=== PATIENT | female | born 1975 | race Caucasian/White ===

== ENCOUNTER 2016-09-05 21:35 | Emergency (ER) | payer OTHER ==
[~2016-09-05] VITALS: Ht 162.6 cm; Wt 139.6 kg
[~2016-09-05 21:35] MED LIST: IBUP-1050 PO
[2016-09-05 21:37] VITALS: TEMP 36.8; Ht 162.6 cm; Wt 139.6 kg
[2016-09-05] MEDS ORDERED: HYDROCODONE/HOMATROPINE SYRUP 5MG/1.5MG 5ML UDP PO STA (21:52)
[2016-09-05] MEDS ORDERED: IBUPROFEN 600 MG TAB PO STA (21:52)
[2016-09-05] MEDS ORDERED: ACET-1256 PO (22:04)
--- NOTE | 2016-09-05 22:04 | EMERGENCY ROOM VISIT NOTE ---
History Report prepared by Randy: Silvia Ogden Under the Supervision of: Dr. Jonathan Lamb M.D. First contact with patient: 21:45 Chief Complaint: RIB PAIN Stated Complaint: RT SIDE PAIN History of Present Illness The patient is a 41 year old female who presents to the Emergency Room with complaints of worsening right sided rib pain for the past couple of weeks. She has had a cough and cold symptoms since before . She has had right sided rib pain since then that has been persistent. She describes it as an ache and states that it is worse at night when she is trying to rest. Her pain radiates into her back. She rates her pain as an 8/10 in severity. Taking a deep breath exacerbates her pain. She states that "it feels like the head of a baby is lodged under my rib." She has been taking Tylenol for pain. Source of History: patient Onset: a couple of weeks ago Position: other (right sided ribs) Symptom Intensity: 8/10 Quality: ache Review of Systems See HPI for pertinent positives & negatives. A total of 10 systems reviewed and were otherwise negative. Past Medical & Surgical Medical Problems: (1) Cellulitis (2) Herpetic chayito (3) Herpetic chayito (4) History of blood clots (5) Pain in joint involving right ankle and foot Family History No pertinent history stated. Social History Smoking Status: Never Smoker Alcohol Use: occasionally Drug Use: none Marital Status: Housing Status: lives with family Occupation Status: employed Current/Historical Medications Scheduled Acetaminophen (Tylenol), 1,000 MG PO PRN UD Scheduled PRN Hydrocodone W/ Homatropine (Hycodan 5/1.5MG 5 Ml), 5 ML PO HS PRN for Cough Ibuprofen (Advil), 400 MG PO Q4H PRN for Pain Allergies Coded Allergies: No Known Allergies (Verified , 09/05/16) Physical Exam Vital Signs Date Time Temp Pulse Resp B/P Pulse Ox O2 Delivery O2 Flow Rate FiO2 09/05/16 23:30 93 20 166/104 94 09/05/16 21:37 36.8 109 24 208/101 96 Room Air Physical Exam GENERAL: Patient is a healthy-appearing well-nourished 41 year old female. HEAD: Normocephalic atraumatic EYES: Ocular movements intact pupils equal and react to light OROPHARYNX mucous membranes are moist no exudates present no erythema or edema present NECK: Supple no nuchal rigidity CHEST: Good equal expansion LUNGS: Clear and equal to auscultation CARDIAC: Normal S1 and S2 ABDOMEN: Soft nontender no guarding BACK: No CVA tenderness EXTREMITIES: No pain upon palpation normal muscle strength in all groups no clubbing cyanosis or edema MUSCULOSKELETAL: Point tender to the 9th and 10th ribs, radiates around to the back, gets worse when she moves her arm. NEURO: Patient is following commands is answering questions appropriately. Alert and oriented x3 Cranial Nerves 2-12 grossly intact Medical Decision & Procedures ER Provider Diagnostic Interpretation: Radiology results as stated below per my review and radiologist interpretation: RIGHT RIBS UNILATERAL WITH PA CHEST CLINICAL HISTORY: Right rib pain. COMPARISON STUDY: No previous studies for comparison. FINDINGS: The erect chest reveals borderline cardiac enlargement. There is no pneumothorax. There is no focal pulmonary consolidation. No right-sided rib fractures are visualized. IMPRESSION: No evidence of pneumothorax. No right-sided rib fractures are visualized. Electronically signed by: Herrera Whitney M.D. 09/05/2016 10:40 PM Dictated Date/Time: 09/05/2016 10:39 PM Medications Administered Medications (Trade) Dose Ordered Sig/Everett Route Start Time Stop Time Status Last Admin Dose Admin Ibuprofen (Motrin Tab) 600 mg NOW STAT PO 09/05/16 21:52 09/05/16 21:54 DC 09/05/16 22:04 600 MG Hydrocodone Bit/ Homatropine Methylb (Hycodan Syrup) 5 ml NOW STAT PO 09/05/16 21:52 09/05/16 21:54 DC 09/05/16 22:04 5 ML Hydrocodone Bit/ Homatropine Methylb (Hycodan Elix Homepack 5/1.5MG/ 5ML) 1 homepack UD ONCE PO 09/05/16 23:00 09/05/16 23:01 DC 09/05/16 23:00 1 HOMEPACK ED Course 5: Past medical records reviewed. The patient was evaluated in room B8. A complete history and physical examination was performed. 2151: Hycodan 5 ml PO, Motrin tab 600 mg PO 2251: I reassessed the patient at this time. She is feeling better and resting comfortably. I discussed the results and treatment plan with the patient. I answered all pertaining questions that she had. She expressed understanding and verbalized agreement. The patient will be discharged home. 2300: Amilcarcodan Elix 1 homepack PO Medical Decision Differential diagnoses includes rib fracture, rib dislocation, costochondritis. This is a 41-year-old female who presents emergency department complaining of right-sided chest wall. The patient is point tender on examination and the pain goes all the way around the back along the rib. The pain has been present since patient has been coughing for the past week. She has not taken anything for the pain. For this reason the patient was given ibuprofen as well as Hycodan for cough. The patient does not have any evidence of pneumonia on chest x-ray. She also does not have any evidence of wheezing. I believe the patient can be safely discharged home. I recommended the patient use an incentive spirometer as well as ibuprofen and Hycodan for the pain and cough. Patient was in agreement with the treatment plan. Impression Primary Impression: Costochondritis Scribe Attestation The scribe's documentation has been prepared under my direction and personally reviewed by me in its entirety. I confirm that the note above accurately reflects all work, treatment, procedures, and medical decision making performed by me. Departure Information Dispostion Home / Self-Care Prescriptions Hydrocodone W/ Homatropine (HYCODAN 5/1.5MG 5 ML) 1 Syp Syp 5 ML PO HS Y for Cough, #120 ML Prov: Jonathan Lamb MD 09/05/16 Referrals No Doctor, Assigned (PCP) Forms HOME CARE DOCUMENTATION FORM, IMPORTANT VISIT INFORMATION, WORK / SCHOOL INSTRUCTIONS Patient Instructions A Signature Page, ED Chest Pain Costochondritis, [facility] Additional Instructions You received narcotic or benzodiazepene medication while in the emergency room today. Do not drive, operate heavy machinery, or drink alcohol under the influence of this medication. Take 600 mg Ibuprofen every 6 hours Take Hycodan for breakthrough pain You have been examined and treated today on an emergency basis only. This is not a substitute for, or an effort to provide, complete comprehensive medical care. It is impossible to recognize and treat all injuries or illnesses in a single emergency department visit. It is therefore important that you follow up closely with your PCP. Call as soon as possible for an appointment. Thank you for your time and consideration. I look forward to speaking with you again soon. Please don't hesitate to call us if you have any questions.
--- NOTE | 2016-09-05 22:42 | DIAGNOSTIC IMAGING REPORT ---
RIGHT RIBS UNILATERAL WITH PA CHEST CLINICAL HISTORY: Right rib pain. COMPARISON STUDY: No previous studies for comparison. FINDINGS: The erect chest reveals borderline cardiac enlargement. There is no pneumothorax. There is no focal pulmonary consolidation. No right-sided rib fractures are visualized. IMPRESSION: No evidence of pneumothorax. No right-sided rib fractures are visualized. Electronically signed by: Herrera Whitney M.D. 09/05/2016 10:40 PM Dictated Date/Time: 09/05/2016 10:39 PM
[2016-09-05] MEDS ORDERED: HYDR5SYP11 PO (22:52)
[2016-09-05] MEDS ORDERED: HYCODAN 60ML BOTTLE HOMEPACK PO ONE (23:00)
[2016-09-05 23:30] VITALS: BP 166/104; PULSE 93; O2SAT 94
== END 2016-09-05 23:41 | disposition home or self-care (01) ==
LOC: C.EDB 21:36
DX: M94.0 Chondrocostal junction syndrome [Tietze] (principal); R05 Cough

== ENCOUNTER 2017-03-21 22:52 | Inpatient (IN) | payer OTHER ==
[~2017-03-21] VITALS: Ht 167.6 cm; Wt 148.2 kg
[~2017-03-21 22:52] MED LIST changes: +ACET-1256 PO
[2017-03-21] MEDS ORDERED: ONDANSETRON INJ 2 MG/ML 2 ML VIAL IV STA (23:09)
[2017-03-21] MEDS ORDERED: MoRPHine SULFATE 4 MG/ML 1 ML CARP\\VIAL IV STA (23:09)
[2017-03-21] MEDS ORDERED: OPTIRAY 320 IV PRN (23:15)
[2017-03-21 23:49] LABS: BASO % 0.1 %; BASO ABS # 0.02 K/uL (0-0.2); COMPLETE YES; EOS % 0.8 %; HEMATOCRIT 42.3 % (37-47); IG% 0.5 %; LYMPH % 11.9 %; LYMPH ABS # 1.72 K/uL (1.2-3.4); MEAN CELL VOLUME 87.6 fL (80-100); MEAN CORPUSCULAR HEMOGLOBIN 29.2 pg (25-34); MEAN CORPUSCULAR HGB CONC 33.3 g/dl (32-36); MEAN PLATELET VOLUME 10.7 fL (7.4-10.4); MONO % 3.8 %; NEUT % 82.9 %; PLATELET COUNT 221 K/uL (130-400); RED BLOOD COUNT 4.83 M/uL (4.2-5.4); WHITE BLOOD COUNT 14.49 K/uL (4.8-10.8)
[2017-03-22] VITALS (9 sets, daily range): BP systolic 97–144; BP diastolic 57–85; PULSE 96–112; TEMP 36.5–38.8; O2SAT 87–96; BMI 52.6
[2017-03-22 00:17] LABS: ALB/GLOB RATIO 0.7 (0.9-2); ALKALINE PHOSPHATASE 83 U/L (45-117); ALT/SGPT 42 U/L (12-78); BLOOD UREA NITROGEN 8 mg/dl (7-18); BUN/CREATININE RATIO 11.1 (10-20); CALCIUM 8.5 mg/dl (8.5-10.1); CARBON DIOXIDE 27 mmol/L (21-32); CHLORIDE 106 mmol/L (98-107); CREATININE 0.76 mg/dl (0.60-1.20); GLUCOSE 198 mg/dl (70-99); SODIUM 138 mmol/L (136-145)
[2017-03-22 00:31] LABS: POTASSIUM 3.6 mmol/L (3.5-5.1)
[2017-03-22 01:28] LABS: URINE APPEARANCE TURBID (CLEAR); URINE COLOR ORANGE; URINE EPITHELIAL CELL AUTO >30 /lpf (0-5); URINE NITRITE POS (NEG); UROBILINOGEN NEG (NEG)
[2017-03-22 01:29] LABS: PREG INTERNAL NEGATIVE QC NEG CLEAR BACKGROUND; PREG INTERNAL POSITIVE QC POS CONTROL LINE
[2017-03-22] MEDS ORDERED: PIPERACILLIN/TAZOBACTAM 4.5 GM/100ML D5W IV STA (01:38)
[2017-03-22] MEDS ORDERED: POTASSIUM CHLORIDE 10 MEQ TABCR PO STA (01:41)
--- NOTE | 2017-03-22 01:41 | EMERGENCY ROOM VISIT NOTE ---
History Report prepared by Randy: Tesha Balderas Under the Supervision of: Dr. Napoleon De La Vega M.D. First contact with patient: 23:00 Chief Complaint: FLANK PAIN Stated Complaint: RIGHT SIDE PAIN History of Present Illness The patient is a 41 year old female who presents to the Emergency Room with complaints of constant right sided abdominal pain beginning this afternoon. The patient states that when she got home from work today and noticed that she had some redness and pain to her right lower abdomen. She reports that it is hard, hot and very painful to the touch. She notes that she has some nausea. The patient denies any fever, vomiting, urinary symptoms, hematuria, and a history of kidney stones. She reports that she has her period right now. Source of History: patient Onset: this afternoon Position: abdomen Symptom Intensity: moderate Quality: other (red and hot) Timing: constant Associated Symptoms: + nausea, No fevers, No vomiting, No urinary symptoms Review of Systems See HPI for pertinent positives & negatives. A total of 10 systems reviewed and were otherwise negative. Past Medical & Surgical Medical Problems: (1) Cellulitis (2) Herpetic chayito (3) Herpetic chayito (4) History of blood clots (5) Pain in joint involving right ankle and foot Family History No pertinent family history stated. Social History Smoking Status: Never Smoker Alcohol Use: occasionally Drug Use: none Marital Status: Housing Status: lives with family Occupation Status: employed Current/Historical Medications Scheduled Acetaminophen (Tylenol), 1,000 MG PO PRN UD Scheduled PRN Ibuprofen (Advil), 400 MG PO Q4H PRN for Pain Allergies Coded Allergies: No Known Allergies (Verified , 09/05/16) Physical Exam Vital Signs Date Time Temp Pulse Resp B/P (MAP) Pulse Ox O2 Delivery O2 Flow Rate FiO2 03/22/17 01:00 36.9 114 20 162/81 92 Room Air 03/21/17 22:54 36.7 126 18 151/89 93 Room Air Physical Exam Constitutional: Vital signs reviewed. Eyes: Pupils are equal round reactive to light. Conjunctiva are noninjected. ENT: Pharynx is clear without erythema or exudate. Mucous membranes are moist. Neck supple without meningeal signs. Respiratory: Clear to auscultation bilaterally. Breath sounds are equal bilaterally. Cardiovascular: Tachycardic. No rubs or gallops. GI: Bowel sounds are present. A large abscess to the RLQ with tenderness and induration. Small area of fluctuance. No extension into the perineum or genitalia. Musculoskeletal: No peripheral edema. No lower extremity tenderness. Integumentary: No cyanosis. Neurological: The patient is awake and alert. No focal deficits. Psychiatric: Normal affect. Medical Decision & Procedures ER Provider Diagnostic Interpretation: Radiology results as stated below per my review and the radiologist's interpretation: Chest X-Ray: No acute cardiopulmonary process. CT of the abdomen and pelvis shows no abscess or phlegmon in the right lower quadrant pannus/subcutaneous tissues. There is soft tissue gas identified either from penetrating trauma or gas producing infection. Adjacent stranding/ subcutaneous edema. No bowel obstruction. No appendicitis or other inflammatory changes of bowel. Pancreas and gallbladder are grossly unremarkable. No renal calculi. No hydronephrosis. No free air or free fluid. No other acute disease. Laboratory Results 03/21/17 23:30 Red Blood Count 4.83, Mean Corpuscular Volume 87.6, Mean Corpuscular Hemoglobin 29.2, Mean Corpuscular Hemoglobin Concent 33.3, Mean Platelet Volume 10.7, Neutrophils (%) (Auto) 82.9, Lymphocytes (%) (Auto) 11.9, Monocytes (%) (Auto) 3.8, Eosinophils (%) (Auto) 0.8, Basophils (%) (Auto) 0.1, Neutrophils # (Auto) 12.02, Lymphocytes # (Auto) 1.72, Monocytes # (Auto) 0.55, Eosinophils # (Auto) 0.11, Basophils # (Auto) 0.02 03/21/17 23:30 03/22/17 00:02 Test 03/21/17 23:30 03/21/17 23:40 03/22/17 00:02 03/22/17 00:12 White Blood Count 14.49 K/uL (4.8-10.8) Red Blood Count 4.83 M/uL (4.2-5.4) Hemoglobin 14.1 g/dL (12.0-16.0) Hematocrit 42.3 % (37-47) Mean Corpuscular Volume 87.6 fL (80-100) Mean Corpuscular Hemoglobin 29.2 pg (25-34) Mean Corpuscular Hemoglobin Concent 33.3 g/dl (32-36) Platelet Count 221 K/uL (130-400) Mean Platelet Volume 10.7 fL (7.4-10.4) Neutrophils (%) (Auto) 82.9 % Lymphocytes (%) (Auto) 11.9 % Monocytes (%) (Auto) 3.8 % Eosinophils (%) (Auto) 0.8 % Basophils (%) (Auto) 0.1 % Neutrophils # (Auto) 12.02 K/uL (1.4-6.5) Lymphocytes # (Auto) 1.72 K/uL (1.2-3.4) Monocytes # (Auto) 0.55 K/uL (0.11-0.59) Eosinophils # (Auto) 0.11 K/uL (0-0.5) Basophils # (Auto) 0.02 K/uL (0-0.2) RDW Standard Deviation 46.5 fL (36.4-46.3) RDW Coefficient of Variation 14.4 % (11.5-14.5) Immature Granulocyte % (Auto) 0.5 % Immature Granulocyte # (Auto) 0.07 K/uL (0.00-0.02) Anion Gap 5.0 mmol/L (3-11) Est Creatinine Clear Calc Drug Dose 145.5 ml/min Estimated GFR () 112.9 Estimated GFR (Non- 97.4 BUN/Creatinine Ratio 11.1 (10-20) Calcium Level 8.5 mg/dl (8.5-10.1) Total Bilirubin 1.3 mg/dl (0.2-1) Alanine Aminotransferase (ALT/SGPT) 42 U/L (12-78) Alkaline Phosphatase 83 U/L (45-117) Total Protein 6.9 gm/dl (6.4-8.2) Albumin 2.8 gm/dl (3.4-5.0) Globulin 4.1 gm/dl (2.5-4.0) Albumin/Globulin Ratio 0.7 (0.9-2) Bedside Lactic Acid Venous 1.32 mmol/L (0.90-1.70) Aspartate Amino Transf (AST/SGOT) 13 U/L (15-37) Urine Test NEG (NEG) Test 03/22/17 01:17 Prothrombin Time 11.4 SECONDS (9.0-12.0) Prothromb Time International Ratio 1.1 (0.9-1.1) Activated Partial Thromboplast Time 26.9 SECONDS (21.0-31.0) Partial Thromboplastin Ratio 1.0 Laboratory results as reviewed by me. Medications Administered Medications (Trade) Dose Ordered Sig/Everett Route Start Time Stop Time Status Last Admin Dose Admin Morphine Sulfate (MoRPHine SULFATE INJ) 4 mg NOW STAT IV 03/21/17 23:09 03/21/17 23:12 DC 03/22/17 00:22 4 MG Ondansetron HCl (Zofran Inj) 4 mg NOW STAT IV 03/21/17 23:09 03/21/17 23:12 DC 03/22/17 00:22 4 MG ED Course 2300: The patient was evaluated in room B10. A complete history and physical exam was performed. 2309: Zofran Inj 4mg IV, Morphine Sulfate 4mg IV. 0120: I discussed the test results with the patient. She is feeling better. I spoke with Dr. Parker of [facility]. We discussed the patient and her results. The patient will be further evaluated by Dr. Parker. Medical Decision This is a 41-year-old female presents with right-sided abdominal pain. Differential diagnosis includes cutaneous abscess, cellulitis, intra-abdominal abscess, panniculitis, sepsis. I did perform a limited focused review of portions of the patient's old chart on the electronic medical record. The patient has had no recent pertinent visits to this hospital. I did evaluate the patient as noted above. IV access was established. I did treat the patient with IV Zofran and morphine. I did order and review the patient's blood work as noted in the electronic medical record. Her white blood cell count is over 14,000. I did order a CT of the abdomen and pelvis. I did review the images myself. I did discuss the test results with the patient. She states she is feeling better. I did treat her with Zosyn IV. I did discuss case with the hospitalist and manager of case. The CT was read by the radiologist. I did review his report. I did discuss the case with Dr. Leigh of surgery who recommended IV antibiotics and admission to medicine. I did treat the patient with IV vancomycin as well. I did update the hospitalist regarding the surgeon's recommendation. Medication Reconcilliation Current Medication List: was personally reviewed by me Blood Pressure Screening Patient's blood pressure: Elevated blood pressure Blood pressure disposition: Referred to PCP Consults Consulting Physician: Dr. Keith Duncan Returned Call: 01:[address] Parker of [facility]. We discussed the patient and her results. The patient will be further evaluated by Dr. Parker. Additional Consults: Consulted Physician: Dr. Leigh - surgery Returned Call: 01:48 Additional Comments: Reviewed case and CT findings with surgeon. Recommended admit to medicine with IV antibiotics and he will follow closely. Impression Primary Impression: Right lower quadrant abdominal abscess Additional Impression: Cellulitis Scribe Attestation The scribe's documentation has been prepared under my direct and personally reviewed by me in its entirety. I confirm that the note above accurately reflects all work, treatment, procedures, and medical decision making performed by me. Departure Information Dispostion Being Evaluated By Hospitalist Referrals No Doctor, Assigned (PCP) Patient Instructions My [facility] Problem Qualifiers Additional Impression: Cellulitis Site of cellulitis: trunk Site of cellulitis of trunk: abdominal wall Qualified Codes: L03.311 - Cellulitis of abdominal wall
[2017-03-22 01:43] LABS: INR 1.1 (0.9-1.1); PROTHROMBIN TIME (PATIENT) 11.4 SECONDS (9.0-12.0)
[2017-03-22] MEDS ORDERED: VANCOMYCIN 1GM/270ML NSS IV STA (01:43)
[2017-03-22] MEDS ORDERED: NSS + 20MEQ KCL 1000ML 1,000 ML IV SCH (01:45)
[2017-03-22 01:51] LABS: MAGNESIUM 1.7 mg/dl (1.8-2.4)
[2017-03-22 01:52] LABS: MANUAL MICROSCOPIC REQUIRED? NO; REVIEW REQ? YES; URINE BILIRUBIN NEG (NEG)
[2017-03-22] MEDS ORDERED: MAGNESIUM SULFATE 1GM / D5W 1 GM in PREMIXED IN D5W 100 ML IV ONE (02:00)
[2017-03-22 02:08] LABS: THYROID STIMULATING HORMONE 0.951 uIu/ml (0.300-4.500)
[2017-03-22] MEDS ORDERED: POLYETHYLENE (MIRALAX) 17 GM PACK PO PRN (03:15)
[2017-03-22] MEDS ORDERED: VANCOMYCIN 1GM/270ML NSS ONE (03:53)
--- NOTE | 2017-03-22 03:56 | History and Physical ---
History & Physical Date & Time of Service: Mar 22, 2017 at 03:20 Chief Complaint: Right Side Pain Primary Care Physician: No Doctor, Assigned History of Present Illness Source: patient 41-year-old female with no significant past medical history presented to the ER with complaints of right-sided abdominal pain which started this afternoon. She stated that she had some pain in the right lower part of her abdominal wall which was associated with redness and was warm and tender to touch. She denies any history of trauma or insect bites. Denies any fevers or chills. Past Medical/Surgical History Medical Problems: (1) Cellulitis Status: Resolved (2) Herpetic chayito Status: Resolved (3) Herpetic chayito Status: Resolved (4) History of blood clots Status: Chronic (5) Pain in joint involving right ankle and foot Status: Resolved Social History Smoking Status: Never Smoker Drug Use: none Marital Status: Occupational Status: employed Multi-Drug Resistant Organisms History of MDRO: No Allergies Coded Allergies: No Known Allergies (Verified , 09/05/16) Home Medications Scheduled Acetaminophen (Tylenol), 1,000 MG PO PRN UD Scheduled PRN Ibuprofen (Advil), 400 MG PO Q4H PRN for Pain Review of Systems Constitutional: No fever, No chills Eyes: No worsening of vision ENT: No hearing loss Respiratory: No cough Cardiovascular: No chest pain Abdomen: + pain (RLQ), No nausea Musculoskeletal: No joint pain Genitourinary - Female: No dysuria, No urinary frequency, No urinary urgency Neurologic: No memory loss Psychiatric: No depression symptoms Endocrine: No fatigue Physical Exam Vital Signs Date Time Temp Pulse Resp B/P (MAP) Pulse Ox O2 Delivery O2 Flow Rate FiO2 03/22/17 02:25 113 20 153/93 91 Room Air 03/22/17 01:00 36.9 114 20 162/81 92 Room Air 03/21/17 22:54 36.7 126 18 151/89 93 Room Air General Appearance: WD/WN, no apparent distress, + obese Eyes: normal inspection Neck: supple Respiratory/Chest: lungs clear, normal breath sounds, no respiratory distress Cardiovascular: + tachycardia Extremities/Musculoskelatal: + pedal edema (RLE circumference >LLE) Neurologic/Psych: alert, normal mood/affect, oriented x 3 Skin: normal color Right lower abdominal wall tender, swollen, erythematous with areas of fluctuance Diagnostics Laboratory Results Results Past 24 Hours Test 03/21/17 23:30 03/21/17 23:40 03/22/17 00:02 03/22/17 00:12 Range/Units White Blood Count 14.49 4.8-10.8 K/uL Red Blood Count 4.83 4.2-5.4 M/uL Hemoglobin 14.1 12.0-16.0 g/dL Hematocrit 42.3 37-47 % Mean Corpuscular Volume 87.6 80-100 fL Mean Corpuscular Hemoglobin 29.2 25-34 pg Mean Corpuscular Hemoglobin Concent 33.3 32-36 g/dl Platelet Count 221 130-400 K/uL Mean Platelet Volume 10.7 7.4-10.4 fL Neutrophils (%) (Auto) 82.9 % Lymphocytes (%) (Auto) 11.9 % Monocytes (%) (Auto) 3.8 % Eosinophils (%) (Auto) 0.8 % Basophils (%) (Auto) 0.1 % Neutrophils # (Auto) 12.02 1.4-6.5 K/uL Lymphocytes # (Auto) 1.72 1.2-3.4 K/uL Monocytes # (Auto) 0.55 0.11-0.59 K/uL Eosinophils # (Auto) 0.11 0-0.5 K/uL Basophils # (Auto) 0.02 0-0.2 K/uL RDW Standard Deviation 46.5 36.4-46.3 fL RDW Coefficient of Variation 14.4 11.5-14.5 % Immature Granulocyte % (Auto) 0.5 % Immature Granulocyte # (Auto) 0.07 0.00-0.02 K/uL Sodium Level 138 136-145 mmol/L Potassium Level 3.6 3.5-5.1 mmol/L Chloride Level 106 98-107 mmol/L Carbon Dioxide Level 27 21-32 mmol/L Anion Gap 5.0 3-11 mmol/L Blood Urea Nitrogen 8 7-18 mg/dl Creatinine 0.76 0.60-1.20 mg/dl Est Creatinine Clear Calc Drug Dose 145.5 ml/min Estimated GFR () 112.9 Estimated GFR (Non- 97.4 BUN/Creatinine Ratio 11.1 10-20 Random Glucose 198 70-99 mg/dl Calcium Level 8.5 8.5-10.1 mg/dl Total Bilirubin 1.3 0.2-1 mg/dl Aspartate Amino Transf (AST/SGOT) 13 15-37 U/L Alanine Aminotransferase (ALT/SGPT) 42 12-78 U/L Alkaline Phosphatase 83 45-117 U/L Total Protein 6.9 6.4-8.2 gm/dl Albumin 2.8 3.4-5.0 gm/dl Globulin 4.1 2.5-4.0 gm/dl Albumin/Globulin Ratio 0.7 0.9-2 Bedside Lactic Acid Venous 1.32 0.90-1.70 mmol/L Magnesium Level 1.7 1.8-2.4 mg/dl Thyroid Stimulating Hormone (TSH) 0.951 0.300-4.500 uIu/ml Urine Color ORANGE Urine Appearance TURBID CLEAR Urine pH 6.0 4.5-7.5 Urine Specific [place] 1.020 1.000-1.030 Urine Protein 1+ NEG Urine Glucose (UA) NEG NEG Urine Ketones TRACE NEG Urine Occult Blood 3+ NEG Urine Nitrite POS NEG Urine Bilirubin NEG NEG Urine Urobilinogen NEG NEG Urine Leukocyte Esterase LARGE NEG Urine WBC (Auto) >30 0-5 /hpf Urine RBC (Auto) >30 0-4 /hpf Urine Hyaline Casts (Auto) 0 0-5 /lpf Urine Epithelial Cells (Auto) >30 0-5 /lpf Urine Bacteria (Auto) 4+ NEG Urine Pathogenic Casts 0 /lpf Urine Test NEG NEG Test 03/22/17 01:17 Range/Units Prothrombin Time 11.4 9.0-12.0 SECONDS Prothromb Time International Ratio 1.1 0.9-1.1 Activated Partial Thromboplast Time 26.9 21.0-31.0 SECONDS Partial Thromboplastin Ratio 1.0 Microbiology Results 03/21/17 Blood Culture, Received Pending 03/21/17 Blood Culture, Received Pending Diagnostic Radiology CT of the abdomen and pelvis shows no abscess or phlegmon in the right lower quadrant pannus/subcutaneous tissues. There is soft tissue gas identified either from penetrating trauma or gas producing infection. Adjacent stranding/ subcutaneous edema. No bowel obstruction. No appendicitis or other inflammatory changes of bowel. Pancreas and gallbladder are grossly unremarkable. No renal calculi. No hydronephrosis. No free air or free fluid. No other acute disease. Impression Assessment and Plan 41-year-old female with no significant past medical history presented to the ER with complaints of right-sided abdominal pain which started this afternoon. She stated that she had some pain in the right lower part of her abdominal wall which was associated with redness and was warm and tender to touch. Cellulitis of abdominal wall: - CT abdomen and pelvis: CT of the abdomen and pelvis shows no abscess or phlegmon in the right lower quadrant pannus/subcutaneous tissues. There is soft tissue gas identified either from penetrating trauma or gas producing infection. Adjacent stranding/subcutaneous edema. - Gen. surgery, Dr. Leigh was consulted by ER who recommended IV antibiotics - Continue vancomycin and Zosyn and clindamycin Tachycardia: - Likely secondary to infection Hyperglycemia: - Blood sugar on arrival 193 - Hemoglobin A1c pending Left lower extremity swelling: Venous stasis versus DVT Ultrasound Doppler ordered Full code Disposition: Admitted to [facility] Resident Physician Supervision Note: I interviewed and examined the patient. Discussed with Dr. Muse and agree with findings and plan as documented in the note. Any exceptions or clarifications are listed here: None Documented By: Khanh Bañuelos this AM abdominal wall pain and redness. no fevers, no chills/rigors, but did have some drenching sweats "just today, it was so weird" otherwise actually doesn't feel bad. no trauma to area, notes that she does get occassional LE cellulitis as well. all other ROS otherwise negative except for as above vitals noted, nad, sitting up on side of bed appearing in zero distress. nc/at , mmm. breathing unlabored no accessory muscles good effort. abd shows diffuse lower abdominal erythema and tenderness. does have some areas of faint crepitis. no open lesions/no drainage, while very tender, nothing elicits exquisite tenderness. no skin breakdown. labs/CT noted ER conversation w surgery coverage noted abdominal wall cellulitis w sepsis present on admission, concern for gas producing organisms -fortunately appears far more stable/comfortable/no distress at the bedside than appeared may be the case, because of this appearance of clinical stability , plan of abx, vigilance/close f/u, multidisciplinary approach w surgery and medical teams appears most rational -to cover appropriate and possible organisms, and mediate toxin - zosyn, vanco, clinda -newer evidence suggesting possible Cdiff preventative benefit w probiotics when started early - so start probiotics -wound care consult -trend labs, serial exams hyperglycemia -check A1c; currently even sugar relates to recent ingestion and/or stress response, with active potentially concerning infection - will manage sugars more aggressively w fingersticks and supplemental insulin --> roll over to basal bolus if necessary asymmetric edema -sounds to be chronic per pt, but certainly high risk for clot - agree w doppler as ordered DVT proph -heparin SQ (can be held w rapid reversal, or even protamine given if needed if surgical intervention were to become necessary) otherwise as above Level of Care Med/Surg Resuscitation Status FULL RESUSCITATION VTE Prophylaxis VTE Risk Assessment Done? Y/N: Yes Risk Level: Moderate Given or contraindicated: SCD's Resident Tracking Resident Involvement: Resident Care Provided Care Provided: Adult Hospital Medicine
[2017-03-22] MEDS ORDERED: SODIUM CHLORIDE 0.9% 1000ML 1,000 ML IV ONE (04:45)
[2017-03-22] MEDS ORDERED: PIPERACILL/TAZOBAC CONSULT ACTIVE PRN (05:30)
[2017-03-22] MEDS ORDERED: VANCOMYCIN CONSULT ACTIVE PRN (05:30)
[2017-03-22] MEDS ORDERED: GLUCAGON FOR INJ 1 MG VIAL SQ PRN (05:45)
[2017-03-22] MEDS ORDERED: GLUCOSE 10 TABS/TUBE PO PRN (05:45)
[2017-03-22] MEDS ORDERED: GLUCOSE 40% GEL 15 GM TUBE PO PRN (05:45)
[2017-03-22] MEDS ORDERED: DEXTROSE 50% 50 ML SYR IV PRN (05:45)
[2017-03-22] MEDS: ACETAMINOPHEN 325 MG TAB PO PRN ×4 (05:47→21:14)
[2017-03-22] MEDS ORDERED: VANCOMYCIN INJ 2,000 MG in SODIUM CHLORIDE 0.9% 500ML 500 ML IV SCH (06:00)
[2017-03-22] MEDS ORDERED: NURSING VERBAL MED ORDER ONE (06:15)
[2017-03-22] MEDS: CLINDAMYCIN IV 900 MG in DEXTROSE 5% 100ML 100 ML IV SCH ×3 (06:33→22:30)
[2017-03-22 07:07] LABS: HEMATOCRIT 39.4 % (37-47); MEAN CELL VOLUME 89.1 fL (80-100); MEAN CORPUSCULAR HEMOGLOBIN 29.2 pg (25-34); MEAN CORPUSCULAR HGB CONC 32.7 g/dl (32-36); MEAN PLATELET VOLUME 10.6 fL (7.4-10.4); PLATELET COUNT 189 K/uL (130-400); RED BLOOD COUNT 4.42 M/uL (4.2-5.4); WHITE BLOOD COUNT 13.21 K/uL (4.8-10.8)
[2017-03-22] MEDS: SODIUM CHLOR 0.45% + 20MEQ KCL 1,000 ML IV SCH ×2 (07:09→16:22)
[2017-03-22] MEDS: HEPARIN SOD 5000 UNIT/0.5 ML CARP SQ SCH ×3 (07:09→22:34)
--- NOTE | 2017-03-22 07:34 | DIAGNOSTIC IMAGING REPORT ---
CHEST ONE VIEW PORTABLE CLINICAL HISTORY: Sepsis. COMPARISON STUDY: Chest radiograph September 05, 2016. FINDINGS: This exam is compromised by suboptimal penetration related to body habitus and portable technique. There is no pneumothorax or pleural effusion. There is no lobar consolidation. There is no evidence of pulmonary edema. There is borderline cardiomegaly. IMPRESSION: No acute findings. Study compromised due to suboptimal penetration. Electronically signed by: Boston Mckeon M.D. 03/22/2017 7:33 AM Dictated Date/Time: 03/22/2017 7:31 AM
[2017-03-22 07:43] LABS: BUN/CREATININE RATIO 11.5 (10-20); CALCIUM 8.1 mg/dl (8.5-10.1); CREATININE 0.66 mg/dl (0.60-1.20); POTASSIUM 3.5 mmol/L (3.5-5.1)
[2017-03-22] MEDS: INSULIN ASPART 100 UNITS/ML 3 ML PEN SC SCH ×4 (07:56→21:00)
[2017-03-22] MEDS: LACTOBACILLUS ACIDOPHILUS (FLORANEX) TAB PO SCH ×3 (07:57→18:17)
[2017-03-22] MEDS: PIPERACILL/TAZOBAC IV 4.5 GM in DEXTROSE 5% 100ML 100 ML IV SCH ×2 (07:57→16:22)
[2017-03-22 08:09] LABS: ESTIMATED AVERAGE GLUCOSE 154 mg/dl; HA1C FLAG Normal (Normal)
--- NOTE | 2017-03-22 08:23 | DIAGNOSTIC IMAGING REPORT ---
CT OF THE ABDOMEN AND PELVIS WITH CONTRAST CLINICAL HISTORY: Right-sided pain. Evaluate for abscess within the right lower quadrant. COMPARISON STUDY: None. TECHNIQUE: Following IV administration of 94 mL of Optiray-320, axial images of the abdomen and pelvis were obtained from the lung bases to the proximal femurs. Images were reviewed in the axial, sagittal, and coronal planes. IV contrast was administered without complication. A dose lowering technique was utilized adhering to the principles of ALARA. CT DOSE: 2386.92 mGy.cm FINDINGS: There is probable fatty infiltration of the liver. The spleen, adrenal glands, kidneys and pancreas are normal. There is no hydronephrosis. The caliber and wall thickness of small and large bowel are normal. The appendix is normal. Note is made of moderate infiltration within the subcutaneous tissues of the right lower quadrant pannus. There is moderate soft tissue gas. No rim-enhancing fluid collection is noted to suggest an abscess. Skin thickening is present. IMPRESSION: Moderate subcutaneous infiltration and skin thickening of the right lower quadrant pannus with associated soft tissue gas. Infiltration extends to the underlying fascia. No evidence for intraperitoneal involvement. In the absence of an open wound/penetrating injury, the findings suggest a gas-forming infectious process. Close clinical monitoring is recommended. No abscess. Electronically signed by: Boston Mckeon M.D. 03/22/2017 8:22 AM Dictated Date/Time: 03/22/2017 8:14 AM
--- NOTE | 2017-03-22 09:01 | Surgery Consultation ---
Consultation Date of Consultation: Mar 22, 2017. Attending Physician: Khanh Bañuelos D.O. History of Present Illness pt was in her normal state of health...yesterday at work started feeling feverish/chills with RLQ abdominal pain. no hx of trauma/ insect bite etc... Past Medical/Surgical History Medical Problems: (1) Right lower quadrant abdominal abscess Status: Acute Social History Smoking Status: Never Smoker Drug Use: none Marital Status: Housing Status: lives with family Occupation Status: employed Allergies Coded Allergies: Vancomycin (Unverified Allergy, Mild, HIVES, 03/22/17) Home Medications Scheduled Acetaminophen (Tylenol), 1,000 MG PO PRN UD Scheduled PRN Ibuprofen (Advil), 400 MG PO Q4H PRN for Pain Current Inpatient Medications Current Inpatient Medications Medications (Trade) Dose Ordered Sig/[place] Route Start Time Stop Time Status Last Admin Dose Admin Ioversol (Optiray 320) 100 ml UD PRN IV 03/21/17 23:15 03/25/17 23:14 Acetaminophen (Tylenol Tab) 650 mg Q4H PRN PO 03/22/17 03:15 04/21/17 03:14 03/22/17 05:47 650 MG Polyethylene (Miralax Powder Packet) 17 gm DAILY PRN PO 03/22/17 03:15 04/21/17 03:14 Ondansetron HCl (Zofran Inj) 4 mg Q6H PRN IV 03/22/17 03:15 04/21/17 03:14 Piperacillin Sod/ Tazobactam Sod 4.5 gm/Dextrose 120 ml @ 30 mls/hr Q8H IV 03/22/17 08:00 04/01/17 07:59 03/22/17 07:57 30 MLS/HR Clindamycin Phosphate 900 mg/ Dextrose 106 ml @ 100 mls/hr Q8H IV 03/22/17 06:00 04/01/17 05:59 03/22/17 06:33 100 MLS/HR Lactobacillus Acidophilus (Floranex Tab) 4 tab TIDM PO 03/22/17 08:00 04/21/17 07:59 03/22/17 07:57 4 TAB Heparin Sodium (Porcine) (Heparin Sq 5000 Unit/0.5ml) 5,000 unit Q8H SQ 03/22/17 06:00 04/21/17 05:59 03/22/17 07:09 5,000 UNIT Potassium Chloride/Sodium Chloride 1,000 ml @ 125 mls/hr Q8H IV 03/22/17 06:00 03/22/17 21:59 03/22/17 07:09 125 MLS/HR Insulin Aspart (novoLOG ASPART) SLIDING SCALE G... ACHS SC 03/22/17 07:00 04/21/17 06:59 Piperacillin Sod/ Tazobactam Sod (Consult) 1 ea UD PRN N/A 03/22/17 05:30 04/21/17 05:29 Glucose (Glucose 40% Gel) 15-30 GRAMS 15 GRAMS... UD PRN PO 03/22/17 05:45 04/21/17 05:44 Glucose (Glucose Chew Tab) 4-8 Tablets 4 Tabl... UD PRN PO 03/22/17 05:45 04/21/17 05:44 Dextrose (Dextrose 50% 50ML Syringe) 25-50ML OF 50% DW IV FOR... UD PRN IV 03/22/17 05:45 04/21/17 05:44 Glucagon (Glucagon Inj) 1 mg UD PRN SQ 03/22/17 05:45 04/21/17 05:44 Review of Systems Constitutional: + fever, + chills Abdomen: + pain Physical Exam Date Time Temp Pulse Resp B/P (MAP) Pulse Ox O2 Delivery O2 Flow Rate FiO2 03/22/17 07:32 36.7 97 20 97/57 (70) 90 Room Air 03/22/17 04:40 Room Air 03/22/17 04:40 37.2 107 16 140/69 Room Air 03/22/17 04:01 110 22 146/96 93 Room Air 03/22/17 02:25 113 20 153/93 91 Room Air 03/22/17 01:00 36.9 114 20 162/81 92 Room Air 03/21/17 22:54 36.7 126 18 151/89 93 Room Air General Appearance: WD/WN, no apparent distress Head: normocephalic, atraumatic Eyes: EOMI, sclerae normal ENT: hearing grossly normal Neck: supple, no JVD Respiratory/Chest: no respiratory distress, no accessory muscle use Abdomen/GI: + pertinent finding (soft. large area of erythema on skin. warm to touch. mild tenderness. no skin breakdown. ) Neurologic/Psych: alert, normal mood/affect, oriented x 3 Skin: + pertinent finding Laboratory Results Last 24 Hours Test 03/21/17 23:30 03/21/17 23:40 03/22/17 00:02 03/22/17 00:12 White Blood Count 14.49 K/uL Red Blood Count 4.83 M/uL Hemoglobin 14.1 g/dL Hematocrit 42.3 % Mean Corpuscular Volume 87.6 fL Mean Corpuscular Hemoglobin 29.2 pg Mean Corpuscular Hemoglobin Concent 33.3 g/dl Platelet Count 221 K/uL Mean Platelet Volume 10.7 fL Neutrophils (%) (Auto) 82.9 % Lymphocytes (%) (Auto) 11.9 % Monocytes (%) (Auto) 3.8 % Eosinophils (%) (Auto) 0.8 % Basophils (%) (Auto) 0.1 % Neutrophils # (Auto) 12.02 K/uL Lymphocytes # (Auto) 1.72 K/uL Monocytes # (Auto) 0.55 K/uL Eosinophils # (Auto) 0.11 K/uL Basophils # (Auto) 0.02 K/uL RDW Standard Deviation 46.5 fL RDW Coefficient of Variation 14.4 % Immature Granulocyte % (Auto) 0.5 % Immature Granulocyte # (Auto) 0.07 K/uL Sodium Level 138 mmol/L Potassium Level mmol/L 3.6 mmol/L Chloride Level 106 mmol/L Carbon Dioxide Level 27 mmol/L Anion Gap 5.0 mmol/L Blood Urea Nitrogen 8 mg/dl Creatinine 0.76 mg/dl Est Creatinine Clear Calc Drug Dose 145.5 ml/min Estimated GFR () 112.9 Estimated GFR (Non- 97.4 BUN/Creatinine Ratio 11.1 Random Glucose 198 mg/dl Estimated Average Glucose 154 mg/dl Hemoglobin A1c 7.0 % Calcium Level 8.5 mg/dl Total Bilirubin 1.3 mg/dl Aspartate Amino Transf (AST/SGOT) U/L 13 U/L Alanine Aminotransferase (ALT/SGPT) 42 U/L Alkaline Phosphatase 83 U/L Total Protein 6.9 gm/dl Albumin 2.8 gm/dl Globulin 4.1 gm/dl Albumin/Globulin Ratio 0.7 Bedside Lactic Acid Venous 1.32 mmol/L Magnesium Level 1.7 mg/dl Thyroid Stimulating Hormone (TSH) 0.951 uIu/ml Urine Color ORANGE Urine Appearance TURBID Urine pH 6.0 Urine Specific [place] 1.020 Urine Protein 1+ Urine Glucose (UA) NEG Urine Ketones TRACE Urine Occult Blood 3+ Urine Nitrite POS Urine Bilirubin NEG Urine Urobilinogen NEG Urine Leukocyte Esterase LARGE Urine WBC (Auto) >30 /hpf Urine RBC (Auto) >30 /hpf Urine Hyaline Casts (Auto) 0 /lpf Urine Epithelial Cells (Auto) >30 /lpf Urine Bacteria (Auto) 4+ Urine Pathogenic Casts /lpf Urine Test NEG Test 03/22/17 01:17 03/22/17 06:54 03/22/17 07:56 Prothrombin Time 11.4 SECONDS Prothromb Time International Ratio 1.1 Activated Partial Thromboplast Time 26.9 SECONDS Partial Thromboplastin Ratio 1.0 White Blood Count 13.21 K/uL Red Blood Count 4.42 M/uL Hemoglobin 12.9 g/dL Hematocrit 39.4 % Mean Corpuscular Volume 89.1 fL Mean Corpuscular Hemoglobin 29.2 pg Mean Corpuscular Hemoglobin Concent 32.7 g/dl RDW Standard Deviation 48.0 fL RDW Coefficient of Variation 14.6 % Platelet Count 189 K/uL Mean Platelet Volume 10.6 fL Sodium Level 137 mmol/L Potassium Level 3.5 mmol/L Chloride Level 105 mmol/L Carbon Dioxide Level 24 mmol/L Anion Gap 8.0 mmol/L Blood Urea Nitrogen 8 mg/dl Creatinine 0.66 mg/dl Est Creatinine Clear Calc Drug Dose 167.6 ml/min Estimated GFR () 127.2 Estimated GFR (Non- 109.7 BUN/Creatinine Ratio 11.5 Random Glucose 150 mg/dl Lactic Acid Level 0.8 mmol/L Calcium Level 8.1 mg/dl Bedside Glucose 162 mg/dl Assessment & Plan abdominal wall cellulitis ? etiology too soon to tell if will develop into an abcess vs resolve with IV antibiotics alone pt clinically feeling better than yesterday will monitor. if clinically worsens will need to repeat ct scan will follow.
--- NOTE | 2017-03-22 09:28 | DIAGNOSTIC IMAGING REPORT ---
LEFT LOWER EXTREMITY VENOUS DOPPLER CLINICAL HISTORY: Left lower extremity swelling. COMPARISON STUDY: Left lower extremity venous Doppler November 08, 2015. TECHNIQUE: Sonography of the deep venous system of the left lower extremity was performed. Compression and augmentation were evaluated. FINDINGS: The common femoral, superficial femoral and popliteal veins were compressible. Augmentation was normal. Flow was shown within the deep calf vessels although the calf vessels are suboptimally assessed on this exam. IMPRESSION: No evidence of deep venous thrombus within the left lower extremity. Electronically signed by: Boston Mckeon M.D. 03/22/2017 9:26 AM Dictated Date/Time: 03/22/2017 9:26 AM
[2017-03-22] MEDS ORDERED: SODIUM CHLORIDE 0.9% 500ML 500 ML IV SCH (11:15)
--- NOTE | 2017-03-22 11:56 | Family Medicine Progress Note ---
Progress Note Date of Service Mar 22, 2017. Subjective Pt evaluation today including: conversation w/ patient, physical exam, chart review, lab review, review of studies, review of inpatient medication list Pain: Improved from 10 to 5/10 PO Intake: tolerating Voiding: no voiding problems Ms. Tanya Bhatt reports improved abdominal pain (5/10 from 10/10 at admission) . She feels feverish and has chills at times as well. Otherwise she does denies any chest pain, sob, palpitations, nausea, vomiting or dysuria. Of note: Pt is on menstrual cycle Constitutional: + fever (feels feverish), + chills Respiratory: No shortness of breath Cardiovascular: No chest pain Abdomen: + pain, No nausea, No vomiting Female : No dysuria Medications Current Inpatient Medications Medications (Trade) Dose Ordered Sig/Everett Route Start Time Stop Time Status Last Admin Dose Admin Ioversol (Optiray 320) 100 ml UD PRN IV 03/21/17 23:15 03/25/17 23:14 Acetaminophen (Tylenol Tab) 650 mg Q4H PRN PO 03/22/17 03:15 04/21/17 03:14 03/22/17 05:47 650 MG Polyethylene (Miralax Powder Packet) 17 gm DAILY PRN PO 03/22/17 03:15 04/21/17 03:14 Ondansetron HCl (Zofran Inj) 4 mg Q6H PRN IV 03/22/17 03:15 04/21/17 03:14 Piperacillin Sod/ Tazobactam Sod 4.5 gm/Dextrose 120 ml @ 30 mls/hr Q8H IV 03/22/17 08:00 04/01/17 07:59 03/22/17 07:57 30 MLS/HR Clindamycin Phosphate 900 mg/ Dextrose 106 ml @ 100 mls/hr Q8H IV 03/22/17 06:00 04/01/17 05:59 03/22/17 06:33 100 MLS/HR Lactobacillus Acidophilus (Floranex Tab) 4 tab TIDM PO 03/22/17 08:00 04/21/17 07:59 03/22/17 07:57 4 TAB Heparin Sodium (Porcine) (Heparin Sq 5000 Unit/0.5ml) 5,000 unit Q8H SQ 03/22/17 06:00 04/21/17 05:59 03/22/17 07:09 5,000 UNIT Potassium Chloride/Sodium Chloride 1,000 ml @ 125 mls/hr Q8H IV 03/22/17 06:00 03/22/17 21:59 03/22/17 07:09 125 MLS/HR Insulin Aspart (novoLOG ASPART) SLIDING SCALE G... ACHS SC 03/22/17 07:00 04/21/17 06:59 Piperacillin Sod/ Tazobactam Sod (Consult) 1 ea UD PRN N/A 03/22/17 05:30 04/21/17 05:29 Glucose (Glucose 40% Gel) 15-30 GRAMS 15 GRAMS... UD PRN PO 03/22/17 05:45 04/21/17 05:44 Glucose (Glucose Chew Tab) 4-8 Tablets 4 Tabl... UD PRN PO 03/22/17 05:45 04/21/17 05:44 Dextrose (Dextrose 50% 50ML Syringe) 25-50ML OF 50% DW IV FOR... UD PRN IV 03/22/17 05:45 04/21/17 05:44 Glucagon (Glucagon Inj) 1 mg UD PRN SQ 03/22/17 05:45 04/21/17 05:44 Sodium Chloride 500 ml @ 500 mls/hr Q1H IV 03/22/17 11:15 03/22/17 12:14 Daptomycin 900 mg/ Sodium Chloride 68 ml @ 100 mls/hr Q24H IV 03/22/17 12:00 04/01/17 11:59 Objective Physical Exam General Appearance: no apparent distress Eyes: normal inspection Respiratory/Chest: chest non-tender, lungs clear, normal breath sounds Cardiovascular: regular rate, rhythm, no murmur, + pertinent finding (LLE - 2+ pitting edema) Abdomen: normal bowel sounds, + pertinent finding (RLQ erythema, tender to palpation and indurated with a small area of fluctuance and no extension to groin region) Extremities: + swelling (2+ pitting edema LLE) Neurologic/Psychiatric: alert, oriented x 3 Skin: + pertinent finding (multiple skin tags and skin darkening) Laboratory Results Last Resulted 03/22/17 06:54 Last Resulted 03/22/17 06:54 Past 24 Hours Test 03/22/17 01:17 Range/Units Prothromb Time International Ratio 1.1 0.9-1.1 Prothrombin Time 11.4 9.0-12.0 SECONDS Assessment and Plan 41-year-old female with hx of blood clots presented to the ER with right-sided abdominal pain x 1 day. Pain in the right lower part of her abdominal wall and associated with redness, warmth and tenderness. Cellulitis of abdominal wall: - CT abdomen and pelvis: CT of the abdomen and pelvis shows no abscess or phlegmon in the right lower quadrant pannus/subcutaneous tissues. There is soft tissue gas identified either from penetrating trauma or gas producing infection. Adjacent stranding/subcutaneous edema. - Gen. surgery, Dr. Leigh was consulted by ER who recommended IV antibiotics - Continued Zosyn and clindamycin and initiated Daptomycin per pharmacy recommendation for MRSA coverage Hypotension: no known baseline pt does not have a PCP - Likely secondary to infection - concerning for possible sepsis -Ordered 500ml NS bolus Tachycardia: - Likely secondary to infection and improving Hyperglycemia: - Blood sugar on arrival 193; this AM 189 - Ordered sliding scale insulin - Hemoglobin A1c pending Left lower extremity swelling: Venous stasis versus DVT -F/u on doppler US Full code Disposition: Admitted to [facility] Discharge: Pending clinical improvement Resident Involvement: Resident Care Provided Care Provided: Adult Hospital Medicine History Resident Physician Supervision Note: I was present with Dr. Carter during the history and exam. I discussed the case with the resident and agree with the findings and plan as documented in the note. Any exceptions or clarifications are listed here. Patient reports mild improvement in aching right lower quadrant pain with cellulitis with resolving fever/chills subjectively. Tolerating IV abx well, though had rash/rxn w/ vancomycin with some pruritis which has since resolved. Bowels moving without issue at present. Reports no lightheadedness, [place], vision/ hearing changes, n/t/w. Constitutional: acknowledges: chills, fever, weakness Respiratory: negative: cough, short of breath, wheezing Cardiovascular: denies chest pain, denies palpitations, denies syncope Gastrointestinal/Abdominal: positive: abdominal pain, negative: diarrhea, nausea General Appearance: no apparent distress, obese Respiratory: chest non-tender, lungs clear, normal breath sounds, no respiratory distress Cardiovascular: normal peripheral pulses, regular rate, rhythm, no murmur, other (b;l LE nonpitting edema w/ dusky skin changes L > R) Gastrointestinal: normal bowel sounds, soft, no organomegaly, other ( superficial indurated cellulitis which has decreased intensity from previous) Assessment/Plan 51 y/o female without reported past medical history presents w/ sepsis Abdominal well cellulitis w/ sepsis - surgery evaluation appreciated - continue IV clinda/dapto/zosyn, f/u BCx, start probiotics, trending troponins (neg) - IV 500ml NS bolus x 2 Hyperglycemia - A1c pending still, hyperglycemia w/ ISS ordered Lower extremity edema - likely venous stasis changes, doppler negative for CVT
[2017-03-22] MEDS: DAPTOmycin IV 900 MG in SODIUM CHLORIDE 0.9% 50ML 50 ML IV SCH (11:59)
[2017-03-22] MEDS ORDERED: INSULIN ASPART 100 UNITS/ML 3 ML PEN SC SCH (17:15)
--- NOTE | 2017-03-22 17:22 | Medical Consult ---
Consultation Date of Consultation: Mar 22, 2017. Attending Physician: Huang Garcia MD Reason for Consultation: Daptomycin ordered, patient allergic to vancomycin History of Present Illness 41-year-old female with history of recurrent lower extremity cellulitis, now presents with 1 day history of right lower quadrant / groin pain, swelling, and erythema associated with fever and chills. She has had some nausea, myalgias and arthralgias, but no vomiting.Came to the emergency department where she was found to have evidence of cellulitis with CT scan, read by me, showing the presence of soft tissue gas. Patient has been started empirically on combination of daptomycin, Zosyn, and clindamycin. Cultures are unrevealing to date. Patient states that she is feeling somewhat better over the last 12 hours. Past Medical/Surgical History Medical Problems: (1) Right lower quadrant abdominal abscess Status: Acute Medical Problems: (1) Abdominal wall cellulitis (2) Cellulitis (3) Herpetic chayito (4) Herpetic chayito (5) History of blood clots (6) Pain in joint involving right ankle and foot Family History noncontributory Social History Smoking Status: Never Smoker Drug Use: none Marital Status: Housing Status: lives with family Occupation Status: employed Allergies Coded Allergies: Vancomycin (Unverified Allergy, Mild, HIVES, 03/22/17) Current Inpatient Medications Current Inpatient Medications Medications (Trade) Dose Ordered Sig/Everett Route Start Time Stop Time Status Last Admin Dose Admin Ioversol (Optiray 320) 100 ml UD PRN IV 03/21/17 23:15 03/25/17 23:14 Acetaminophen (Tylenol Tab) 650 mg Q4H PRN PO 03/22/17 03:15 04/21/17 03:14 03/22/17 13:50 650 MG Polyethylene (Miralax Powder Packet) 17 gm DAILY PRN PO 03/22/17 03:15 04/21/17 03:14 Ondansetron HCl (Zofran Inj) 4 mg Q6H PRN IV 03/22/17 03:15 04/21/17 03:14 Piperacillin Sod/ Tazobactam Sod 4.5 gm/Dextrose 120 ml @ 30 mls/hr Q8H IV 03/22/17 08:00 04/01/17 07:59 03/22/17 16:22 30 MLS/HR Clindamycin Phosphate 900 mg/ Dextrose 106 ml @ 100 mls/hr Q8H IV 03/22/17 06:00 04/01/17 05:59 03/22/17 13:46 100 MLS/HR Lactobacillus Acidophilus (Floranex Tab) 4 tab TIDM PO 03/22/17 08:00 04/21/17 07:59 03/22/17 11:59 4 TAB Heparin Sodium (Porcine) (Heparin Sq 5000 Unit/0.5ml) 5,000 unit Q8H SQ 03/22/17 06:00 04/21/17 05:59 03/22/17 13:47 5,000 UNIT Potassium Chloride/Sodium Chloride 1,000 ml @ 125 mls/hr Q8H IV 03/22/17 06:00 03/22/17 21:59 03/22/17 16:22 125 MLS/HR Insulin Aspart (novoLOG ASPART) SLIDING SCALE G... ACHS SC 03/22/17 07:00 04/21/17 06:59 Piperacillin Sod/ Tazobactam Sod (Consult) 1 ea UD PRN N/A 03/22/17 05:30 04/21/17 05:29 Glucose (Glucose 40% Gel) 15-30 GRAMS 15 GRAMS... UD PRN PO 03/22/17 05:45 04/21/17 05:44 Glucose (Glucose Chew Tab) 4-8 Tablets 4 Tabl... UD PRN PO 03/22/17 05:45 04/21/17 05:44 Dextrose (Dextrose 50% 50ML Syringe) 25-50ML OF 50% DW IV FOR... UD PRN IV 03/22/17 05:45 04/21/17 05:44 Glucagon (Glucagon Inj) 1 mg UD PRN SQ 03/22/17 05:45 04/21/17 05:44 Daptomycin 900 mg/ Sodium Chloride 68 ml @ 100 mls/hr Q24H IV 03/22/17 12:00 04/01/17 11:59 03/22/17 11:59 100 MLS/HR Review of Systems all systems were reviewed and are negative except as per HPI Physical Exam Date Time Temp Pulse Resp B/P (MAP) Pulse Ox O2 Delivery O2 Flow Rate FiO2 03/22/17 16:00 36.9 101 18 117/85 (96) 92 Room Air 03/22/17 14:27 95 Nasal Cannula 2.0 03/22/17 14:26 36.5 100 20 134/75 (94) 87 Room Air 03/22/17 08:15 Room Air 03/22/17 07:32 36.7 97 20 97/57 (70) 90 Room Air 03/22/17 04:40 Room Air 03/22/17 04:40 37.2 107 16 140/69 Room Air 03/22/17 04:01 110 22 146/96 93 Room Air 03/22/17 02:25 113 20 153/93 91 Room Air 03/22/17 01:00 36.9 114 20 162/81 92 Room Air 03/21/17 22:54 36.7 126 18 151/89 93 Room Air General Appearance: WD/WN, no apparent distress, + obese Head: normocephalic, atraumatic Eyes: normal inspection, EOMI, sclerae normal ENT: normal ENT inspection, hearing grossly normal, pharynx normal Neck: supple, no adenopathy, thyroid normal, trachea midline Respiratory/Chest: chest non-tender, lungs clear, normal breath sounds, no respiratory distress Cardiovascular: regular rate, rhythm, no edema, no gallop, no JVD Abdomen/GI: normal bowel sounds, soft, no organomegaly, + tenderness ( Right lower quadrant/groin) Back: normal inspection, no CVA tenderness Extremities/Musculoskelatal: no calf tenderness, normal capillary refill Neurologic/Psych: alert, normal mood/affect, oriented x 3 Skin: normal color, no rash, + pertinent finding ( erythema right lower quadrant and groin with associated tenderness and increased warmth) Lymphatic: no adenopathy Laboratory Results Date/Time Source Procedure Growth Status 03/21/17 23:58 Blood Blood Culture Pending Received 03/21/17 23:30 Blood Blood Culture Pending Received Last 24 Hours Test 03/21/17 23:30 03/21/17 23:40 03/22/17 00:02 03/22/17 00:12 White Blood Count 14.49 K/uL Red Blood Count 4.83 M/uL Hemoglobin 14.1 g/dL Hematocrit 42.3 % Mean Corpuscular Volume 87.6 fL Mean Corpuscular Hemoglobin 29.2 pg Mean Corpuscular Hemoglobin Concent 33.3 g/dl Platelet Count 221 K/uL Mean Platelet Volume 10.7 fL Neutrophils (%) (Auto) 82.9 % Lymphocytes (%) (Auto) 11.9 % Monocytes (%) (Auto) 3.8 % Eosinophils (%) (Auto) 0.8 % Basophils (%) (Auto) 0.1 % Neutrophils # (Auto) 12.02 K/uL Lymphocytes # (Auto) 1.72 K/uL Monocytes # (Auto) 0.55 K/uL Eosinophils # (Auto) 0.11 K/uL Basophils # (Auto) 0.02 K/uL RDW Standard Deviation 46.5 fL RDW Coefficient of Variation 14.4 % Immature Granulocyte % (Auto) 0.5 % Immature Granulocyte # (Auto) 0.07 K/uL Sodium Level 138 mmol/L Potassium Level mmol/L 3.6 mmol/L Chloride Level 106 mmol/L Carbon Dioxide Level 27 mmol/L Anion Gap 5.0 mmol/L Blood Urea Nitrogen 8 mg/dl Creatinine 0.76 mg/dl Est Creatinine Clear Calc Drug Dose 145.5 ml/min Estimated GFR () 112.9 Estimated GFR (Non- 97.4 BUN/Creatinine Ratio 11.1 Random Glucose 198 mg/dl Estimated Average Glucose 154 mg/dl Hemoglobin A1c 7.0 % Calcium Level 8.5 mg/dl Total Bilirubin 1.3 mg/dl Aspartate Amino Transf (AST/SGOT) U/L 13 U/L Alanine Aminotransferase (ALT/SGPT) 42 U/L Alkaline Phosphatase 83 U/L Total Protein 6.9 gm/dl Albumin 2.8 gm/dl Globulin 4.1 gm/dl Albumin/Globulin Ratio 0.7 Bedside Lactic Acid Venous 1.32 mmol/L Magnesium Level 1.7 mg/dl Thyroid Stimulating Hormone (TSH) 0.951 uIu/ml Urine Color ORANGE Urine Appearance TURBID Urine pH 6.0 Urine Specific [place] 1.020 Urine Protein 1+ Urine Glucose (UA) NEG Urine Ketones TRACE Urine Occult Blood 3+ Urine Nitrite POS Urine Bilirubin NEG Urine Urobilinogen NEG Urine Leukocyte Esterase LARGE Urine WBC (Auto) >30 /hpf Urine RBC (Auto) >30 /hpf Urine Hyaline Casts (Auto) 0 /lpf Urine Epithelial Cells (Auto) >30 /lpf Urine Bacteria (Auto) 4+ Urine Pathogenic Casts /lpf Urine Test NEG Test 03/22/17 01:17 03/22/17 06:54 03/22/17 07:56 03/22/17 11:58 Prothrombin Time 11.4 SECONDS Prothromb Time International Ratio 1.1 Activated Partial Thromboplast Time 26.9 SECONDS Partial Thromboplastin Ratio 1.0 White Blood Count 13.21 K/uL Red Blood Count 4.42 M/uL Hemoglobin 12.9 g/dL Hematocrit 39.4 % Mean Corpuscular Volume 89.1 fL Mean Corpuscular Hemoglobin 29.2 pg Mean Corpuscular Hemoglobin Concent 32.7 g/dl RDW Standard Deviation 48.0 fL RDW Coefficient of Variation 14.6 % Platelet Count 189 K/uL Mean Platelet Volume 10.6 fL Sodium Level 137 mmol/L Potassium Level 3.5 mmol/L Chloride Level 105 mmol/L Carbon Dioxide Level 24 mmol/L Anion Gap 8.0 mmol/L Blood Urea Nitrogen 8 mg/dl Creatinine 0.66 mg/dl Est Creatinine Clear Calc Drug Dose 167.6 ml/min Estimated GFR () 127.2 Estimated GFR (Non- 109.7 BUN/Creatinine Ratio 11.5 Random Glucose 150 mg/dl Lactic Acid Level 0.8 mmol/L Calcium Level 8.1 mg/dl Bedside Glucose 162 mg/dl 153 mg/dl Patient Name: NOHELIA CARRENO Unit Number: [id number] Dictated: 03/22/17813 Transcribed: 03/22/17813 ITA Printed Date/Time: [~ rep prt dt]/[~ rep prt tm] [~ rep ct labl] - [~ rep ct ivnm] [facility] [place] [address] Dictated: 03/22/17813 Transcribed: 03/22/17813 JA Printed Date/Time: [~ rep prt dt]/[~ rep prt tm] [~ rep ct labl] - [~ rep ct ivnm] [~ rep ct add3]] CT OF THE ABDOMEN AND PELVIS WITH CONTRAST CLINICAL HISTORY: Right-sided pain. Evaluate for abscess within the right lower quadrant. COMPARISON STUDY: None. TECHNIQUE: Following IV administration of 94 mL of Optiray-320, axial images of the abdomen and pelvis were obtained from the lung bases to the proximal femurs. Images were reviewed in the axial, sagittal, and coronal planes. IV contrast was administered without complication. A dose lowering technique was utilized adhering to the principles of ALARA. CT DOSE: 2386.92 mGy.cm FINDINGS: There is probable fatty infiltration of the liver. The spleen, adrenal glands, kidneys and pancreas are normal. There is no hydronephrosis. The caliber and wall thickness of small and large bowel are normal. The appendix is normal. Note is made of moderate infiltration within the subcutaneous tissues of the right lower quadrant pannus. There is moderate soft tissue gas. No rim-enhancing fluid collection is noted to suggest an abscess. Skin thickening is present. IMPRESSION: Moderate subcutaneous infiltration and skin thickening of the right lower quadrant pannus with associated soft tissue gas. Infiltration extends to the underlying fascia. No evidence for intraperitoneal involvement. In the absence of an open wound/penetrating injury, the findings suggest a gas-forming infectious process. Close clinical monitoring is recommended. No abscess. Electronically signed by: Boston Mckeon M.D. 03/22/2017 8:22 AM Dictated Date/Time: 03/22/2017 8:14 AM The status of this report is Signed. Draft = Not yet reviewed or approved by Radiologist. Signed = Reviewed and approved by Radiologist. <AttendingPhy>Khanh Bañuelos D.O.</AttendingPhy> <FamilyPhy>No Doctor, Assigned </FamilyPhy> <PrimaryPhy>No Doctor, Assigned</PrimaryPhy> <UnitNumber>[id number] </UnitNumber> <VisitNumber>[id number]</VisitNumber> <PatientName>NOHELIA CARRENO</PatientName> <DateOfBirth>1975</DateOfBirth> <Location>[facility]</ Location> <ServiceDate>03/21/17</ServiceDate> <MNE>ESINDI</MNE> <OrderingPhy> Napoleon De La Vega MD</OrderingPhy> <OrderingPhyMNE>f rep ord dr francisco</OrderingPhyMNE > <DictatingPhyMNE>f rep dict dr francisco</DictatingPhyMNE> <CCListMNE>f rep ct mne</ CCListMNE> <AdmittingPhyMNE>f pt admit dr francisco</AdmittingPhyMNE> <AttendingPhyMNE >f pt attend dr francisco</AttendingPhyMNE> <ConsultingPhyMNE>f pt consult dr francisco</ConsultingPhyMNE> <FamilyPhyMNE>f pt fam dr francisco</FamilyPhyMNE> <OtherPhyMNE>f pt other dr francisco</OtherPhyMNE> < PrimaryPhyMNE>f pt prim care dr francisco</PrimaryPhyMNE> <ReferringPhyMNE>f pt referring dr francisco</ReferringPhyMNE> Assessment & Plan 41-year-old female with history of recurrent lower extremity cellulitis, now with right lower quadrant abdominal wall/ groin cellulitis. Given presence of soft tissue gas, mixture necrotizing infection possibility. Given the patient is allergic to vancomycin, daptomycin appropriate to cover potential for MRSA infection. Would continue patient on current combination with clindamycin for 48 hours for potential antitoxin effect. Will adjust once further culture results are available and clinical response assessed.
[2017-03-22] MEDS ORDERED: SODIUM CHLORIDE 0.9% 500ML 500 ML IV ONE (17:45)
[2017-03-23] VITALS (13 sets, daily range): BP systolic 108–138; BP diastolic 64–84; PULSE 87–104; TEMP 36.8–37.1; O2SAT 62–96
[2017-03-23] MEDS: PIPERACILL/TAZOBAC IV 4.5 GM in DEXTROSE 5% 100ML 100 ML IV SCH ×3 (00:28→15:34)
[2017-03-23] MEDS ORDERED: NURSING VERBAL MED ORDER ONE ×2 (00:30→11:15)
[2017-03-23] MEDS ORDERED: KETOROLAC TROMETHAMINE 30 MG/ML VIAL IV. ONE (01:30)
[2017-03-23] MEDS: CLINDAMYCIN IV 900 MG in DEXTROSE 5% 100ML 100 ML IV SCH ×3 (06:00→22:06)
[2017-03-23] MEDS: HEPARIN SOD 5000 UNIT/0.5 ML CARP SQ SCH ×3 (06:01→22:11)
[2017-03-23 07:02] LABS: HEMATOCRIT 39.7 % (37-47); MEAN CELL VOLUME 88.8 fL (80-100); MEAN CORPUSCULAR HEMOGLOBIN 29.1 pg (25-34); MEAN CORPUSCULAR HGB CONC 32.7 g/dl (32-36); PLATELET COUNT 218 K/uL (130-400); RED BLOOD COUNT 4.47 M/uL (4.2-5.4); WHITE BLOOD COUNT 13.51 K/uL (4.8-10.8)
[2017-03-23 07:31] LABS: BUN/CREATININE RATIO 9.5 (10-20); CALCIUM 8.4 mg/dl (8.5-10.1); CREATININE 0.73 mg/dl (0.60-1.20); POTASSIUM 3.9 mmol/L (3.5-5.1)
[2017-03-23] MEDS: LACTOBACILLUS ACIDOPHILUS (FLORANEX) TAB PO SCH ×3 (09:35→18:09)
[2017-03-23] MEDS: INSULIN ASPART 100 UNITS/ML 3 ML PEN SC SCH ×5 (09:38→20:51)
--- NOTE | 2017-03-23 10:34 | Surgery Progress Note ---
Surgery Progress Note Date of Service Mar 23, 2017. Subjective feeling better than yesterday. less pain. no new complaints. Objective Vital Signs: Date Time Temp Pulse Resp B/P (MAP) Pulse Ox O2 Delivery O2 Flow Rate FiO2 03/23/17 08:00 Nasal Cannula 2.0 03/23/17 07:47 93 Nasal Cannula 2.0 03/23/17 07:45 37.1 91 22 136/70 (92) 85 Room Air 03/23/17 03:10 36.8 102 20 108/64 (79) 95 Room Air 03/23/17 00:00 Room Air 03/22/17 23:10 36.8 96 20 122/84 (97) 96 Room Air 03/22/17 21:05 37.0 03/22/17 20:15 38.8 97 18 134/85 (101) 95 Room Air 03/22/17 18:55 102 144/85 (104) 93 Room Air 03/22/17 16:00 Room Air 03/22/17 16:00 36.9 101 18 117/85 (96) 92 Room Air 03/22/17 14:27 95 Nasal Cannula 2.0 03/22/17 14:26 36.5 100 20 134/75 (94) 87 Room Air General Appearance: no apparent distress Head: atraumatic Neck: supple, no JVD Respiratory/Chest: no respiratory distress, no accessory muscle use Abdomen: soft, + pertinent finding (celluitis same surface area but appears less red/inflammed. ) Laboratory Results: Results Past 24 Hours Test 03/22/17 11:58 03/22/17 17:35 03/22/17 21:00 03/23/17 06:36 Range/Units Bedside Glucose 153 125 138 70-90 mg/dl White Blood Count 13.51 4.8-10.8 K/uL Red Blood Count 4.47 4.2-5.4 M/uL Hemoglobin 13.0 12.0-16.0 g/dL Hematocrit 39.7 37-47 % Mean Corpuscular Volume 88.8 80-100 fL Mean Corpuscular Hemoglobin 29.1 25-34 pg Mean Corpuscular Hemoglobin Concent 32.7 32-36 g/dl RDW Standard Deviation 48.0 36.4-46.3 fL RDW Coefficient of Variation 14.8 11.5-14.5 % Platelet Count 218 130-400 K/uL Mean Platelet Volume 11.0 7.4-10.4 fL Sodium Level 136 136-145 mmol/L Potassium Level 3.9 3.5-5.1 mmol/L Chloride Level 105 98-107 mmol/L Carbon Dioxide Level 23 21-32 mmol/L Anion Gap 8.0 3-11 mmol/L Blood Urea Nitrogen 7 7-18 mg/dl Creatinine 0.73 0.60-1.20 mg/dl Est Creatinine Clear Calc Drug Dose 151.5 ml/min Estimated GFR () 118.6 Estimated GFR (Non- 102.3 BUN/Creatinine Ratio 9.5 10-20 Random Glucose 237 70-99 mg/dl Calcium Level 8.4 8.5-10.1 mg/dl Test 03/23/17 08:02 Range/Units Bedside Glucose 210 70-90 mg/dl Assessment & Plan 03/23/17 clinically doing ok. wbc still 13,[address] scan tomorrow to evaluate for developing fluid collection cont iv antibiotics
[2017-03-23] MEDS ORDERED: SODIUM CHLORIDE 0.9% 500ML 500 ML IV STA (11:15)
[2017-03-23 11:29] LABS: ARTERIAL BLD GAS O2 SATURATION 94.2 % (90-95); ARTERIAL BLOOD GAS BASE EXCESS -0.4 mEq/L (-9-1.8); ARTERIAL BLOOD GAS HCO3 23 mmol/L (19-24); ARTERIAL BLOOD GAS PO2 67 mm/Hg (80-95); ARTERIAL BLOOD GAS pH 7.45 (7.35-7.45)
[2017-03-23] MEDS ORDERED: OPTIRAY 320 IV PRN (11:30)
[2017-03-23 11:31] LABS: ALLEN TEST POS (POS); O2 ADMINISTRATION ROOM AIR
[2017-03-23 11:58] LABS: URINE APPEARANCE TURBID (CLEAR); URINE COLOR DK YELLOW; URINE EPITHELIAL CELL AUTO >30 /lpf (0-5); URINE NITRITE NEG (NEG); URINE PH 5.5 (4.5-7.5); URINE SPECIFIC GRAVITY 1.038 (1.000-1.030); UROBILINOGEN POS (NEG)
[2017-03-23 12:07] LABS: MANUAL MICROSCOPIC REQUIRED? NO; REVIEW REQ? YES; URINE BILIRUBIN NEG (NEG)
--- NOTE | 2017-03-23 12:14 | DIAGNOSTIC IMAGING REPORT ---
CT ABD/PELVIS IV CONTRAST ONLY CLINICAL HISTORY: Abdominal wall pain. Cellulitis. Possible abscess. COMPARISON STUDY: 03/22/2017 TECHNIQUE: Following the IV administration of 94 mL of Optiray-320, CT scan of the abdomen and pelvis was performed from the lung bases to the proximal femurs. Images are reviewed in the axial, sagittal, and coronal planes. IV contrast was administered without complication. A dose lowering technique was utilized adhering to the principles of ALARA. CT DOSE: 2281.74 mGy.cm FINDINGS: Lower chest: There is mild bibasilar atelectatic change. Liver: There is mild hepatic steatosis. No focal masses are visualized. Gallbladder: Unremarkable. Spleen: Normal in size and attenuation. Pancreas: Unremarkable. Adrenal glands: Unremarkable. Kidneys: There is symmetric renal cortical enhancement. The kidneys are normal in size without hydronephrosis. Bowel: There are no transition zones indicate bowel obstruction. There is no evidence of acute appendicitis. There is no evidence of acute diverticulitis. Peritoneum: There is no intraperitoneal free air or abdominal ascites. Vasculature: The abdominal aorta is normal in course and caliber. Adenopathy: There are mildly prominent aortocaval and inguinal lymph nodes, unchanged the prior study and likely reactive. Pelvic viscera: The bladder, and pelvic viscera are unremarkable. Skeletal structures: There is infiltration of the fat within the subcutaneous tissues of the lower anterior abdominal wall. There is gas present within the soft tissue. There is overlying skin thickening which appears slightly increased. There are no fluid collections to indicate a drainable abscess. IMPRESSION: 1. Progressive lower abdominal wall skin thickening, and infiltration of the subcutaneous fat. There is gas present within the soft tissues. In the absence of an open wound or trauma, this suggests a gas-forming infectious process. There is no intraperitoneal involvement. There are no fluid collections to indicate a drainable abscess. 2. No evidence of bowel obstruction. No evidence of free air 3. No evidence of acute appendicitis. No evidence of acute diverticulitis. Electronically signed by: Herrera Whitney M.D. 03/23/2017 12:13 PM Dictated Date/Time: 03/23/2017 12:07 PM
[2017-03-23] MEDS: DAPTOmycin IV 900 MG in SODIUM CHLORIDE 0.9% 50ML 50 ML IV SCH (12:19)
[2017-03-23] MEDS ORDERED: VANCOMYCIN TROUGH SCH (13:30)
--- NOTE | 2017-03-23 13:50 | Family Medicine Progress Note ---
Progress Note Date of Service Mar 23, 2017. Subjective Pt evaluation today including: conversation w/ patient, physical exam, chart review, lab review, review of studies, review of inpatient medication list Pain: 5/10 pain reported PO Intake: tolerating Voiding: no voiding problems Ms. Bhatt reports 5/10 abdominal pain. She also has mild pain in her L leg which is longstanding. She continues to have fever adn chills but otherwise she reports feeling well Constitutional: + fever, + chills, + fatigue Respiratory: No shortness of breath Cardiovascular: + edema, No chest pain, No palpitations Abdomen: + pain (5/10 abdominal pain), No nausea, No vomiting, No diarrhea, No constipation Musculoskeletal: + swelling (2+ pitting edema LLE), + calf pain (mild L leg) , No joint pain Female : No dysuria Medications Current Inpatient Medications Medications (Trade) Dose Ordered Sig/E[place]rett Route Start Time Stop Time Status Last Admin Dose Admin Ioversol (Optiray 320) 100 ml UD PRN IV 03/21/17 23:15 03/25/17 23:14 Acetaminophen (Tylenol Tab) 650 mg Q4H PRN PO 03/22/17 03:15 04/21/17 03:14 03/22/17 21:14 650 MG Polyethylene (Miralax Powder Packet) 17 gm DAILY PRN PO 03/22/17 03:15 04/21/17 03:14 Ondansetron HCl (Zofran Inj) 4 mg Q6H PRN IV 03/22/17 03:15 04/21/17 03:14 Piperacillin Sod/ Tazobactam Sod 4.5 gm/Dextrose 120 ml @ 30 mls/hr Q8H IV 03/22/17 08:00 04/01/17 07:59 03/23/17 07:59 30 MLS/HR Clindamycin Phosphate 900 mg/ Dextrose 106 ml @ 100 mls/hr Q8H IV 03/22/17 06:00 04/01/17 05:59 03/23/17 06:00 100 MLS/HR Lactobacillus Acidophilus (Floranex Tab) 4 tab TIDM PO 03/22/17 08:00 04/21/17 07:59 03/23/17 12:12 4 TAB Heparin Sodium (Porcine) (Heparin Sq 5000 Unit/0.5ml) 5,000 unit Q8H SQ 03/22/17 06:00 04/21/17 05:59 03/23/17 06:01 5,000 UNIT Insulin Aspart (novoLOG ASPART) SLIDING SCALE G... ACHS SC 03/22/17 07:00 04/21/17 06:59 03/23/17 12:23 1 UNITS Piperacillin Sod/ Tazobactam Sod (Consult) 1 ea UD PRN N/A 03/22/17 05:30 04/21/17 05:29 Glucose (Glucose 40% Gel) 15-30 GRAMS 15 GRAMS... UD PRN PO 03/22/17 05:45 04/21/17 05:44 Glucose (Glucose Chew Tab) 4-8 Tablets 4 Tabl... UD PRN PO 03/22/17 05:45 04/21/17 05:44 Dextrose (Dextrose 50% 50ML Syringe) 25-50ML OF 50% DW IV FOR... UD PRN IV 03/22/17 05:45 04/21/17 05:44 Glucagon (Glucagon Inj) 1 mg UD PRN SQ 03/22/17 05:45 04/21/17 05:44 Daptomycin 900 mg/ Sodium Chloride 68 ml @ 100 mls/hr Q24H IV 03/22/17 12:00 04/01/17 11:59 03/23/17 12:19 100 MLS/HR Ioversol (Optiray 320) 125 ml UD PRN IV 03/23/17 11:30 03/27/17 11:29 Objective Vital Signs Date Time Temp Pulse Resp B/P (MAP) Pulse Ox O2 Delivery O2 Flow Rate FiO2 03/23/17 09:00 92 Room Air 03/23/17 08:00 Nasal Cannula 2.0 03/23/17 07:47 93 Nasal Cannula 2.0 03/23/17 07:45 37.1 91 22 136/70 (92) 85 Room Air 03/23/17 03:10 36.8 102 20 108/64 (79) 95 Room Air 03/23/17 00:00 Room Air 03/22/17 23:10 36.8 96 20 122/84 (97) 96 Room Air 03/22/17 21:05 37.0 03/22/17 20:15 38.8 97 18 134/85 (101) 95 Room Air 03/22/17 18:55 102 144/85 (104) 93 Room Air 03/22/17 16:00 Room Air 03/22/17 16:00 36.9 101 18 117/85 (96) 92 Room Air 03/22/17 14:27 95 Nasal Cannula 2.0 03/22/17 14:26 36.5 100 20 134/75 (94) 87 Room Air Physical Exam General Appearance: + mild distress, + obese Eyes: normal inspection Respiratory/Chest: lungs clear, normal breath sounds, no respiratory distress Cardiovascular: regular rate, rhythm, no murmur Abdomen: normal bowel sounds, + tenderness, + pertinent finding (increasing RLQ erythema and tenderness; persistent induration and small area of fluctuance) Extremities: + calf tenderness (mild calf tenderness reported on palpation), + swelling (2+ LLE swelling), + pertinent finding (unable to obtain posterior tibial pulses) Neurologic/Psychiatric: alert, normal mood/affect, oriented x 3 Laboratory Results Last Resulted 03/23/17 06:36 Last Resulted 03/23/17 06:36 Assessment and Plan 41-year-old female with hx of blood clots presented to the ER with right-sided abdominal pain x 1 day. Pain in the right lower part of her abdominal wall and associated with redness, warmth and tenderness. Cellulitis of abdominal wall with Sepsis: clinically deteriorating given spreading erythema, increased pain and drowsiness - Abdominal CT repeated - progressive abdominal wall infiltration, gas within soft tissues, no abscess or intraperitoneal involvement - ABG ordered and wnl - UA/UCx ordered - UA wnl and UCx pending - BCx from 03/21 - no growth to date - Gen. surgery, Dr. Leigh evaluated this AM - recommended continuation of Antibiotics - Continue Zosyn and clindamycin and initiated Daptomycin per pharmacy recommendation for MRSA coverage -Contacted Dr. Sanchez (ID) for recommendations given clinical deterioration - Relative hypotension and tachycardia 2/2 infection -Ordered 500ml NS bolus Hyperglycemia: - Blood sugar on arrival 193; this AM 237 - Continue sliding scale insulin (range: 100-130 with correction factor of 30) - Hemoglobin A1c 7 Left lower extremity swelling: Venous stasis versus DVT -Doppler US - normal Full code Disposition: Admitted to [facility] Discharge: Pending clinical improvement Resident Tracking Resident Involvement: Resident Care Provided Care Provided: Adult Hospital Medicine Resident Tracking Resident Involvement: Resident Care Provided Care Provided: Adult Hospital Medicine History Resident Physician Supervision Note: I was present with Dr. Carter during the history and exam. I discussed the case with the resident and agree with the findings and plan as documented in the note. Any exceptions or clarifications are listed here. Initially today, patient was less alert/responsive and was having appreciable apneic episodes while resting in chair. The patient reports that multiple people have been concerned re: her evident sleep apnea, but she has refused intervention and refuses empiric CPAP at this time. She will consent to a nocturnal pulse O2 testing while inpatient, however, which may help until she can be convinced to have a sleep study. Her mental status improved throughout the day on her present abx regimen. Her pain is stable from previous. The redness has spread locally around the initial site. Reports no n/v, abd pain aside from skin pain, diarrhea/constipation, CP/palpitations. She is tolerating her insulin therapy well and I spent several minutes this afternoon discussing the importance of establishing a primary care provider and getting ahead of her chronic medical conditions before they cause more problems for her down the line. She expresses understanding of this, but still seems hesitant. I have reviewed the likelihood of her going home on a diabetic drug ( metformin) and her need to follow regularly with an outpatient physician for management, as well as some lifestyle changes for weight loss. General Appearance: no apparent distress, obese Respiratory: chest non-tender, lungs clear, normal breath sounds, no respiratory distress Cardiovascular: normal peripheral pulses, regular rate, rhythm, no edema, no murmur Gastrointestinal: normal bowel sounds, soft, no organomegaly, other (TTP over newly expanded and marked abdominal erythema) Assessment/Plan 51 y/o female without reported past medical history presents w/ sepsis Abdominal well cellulitis w/ sepsis - surgery and ID consulted and recommendations appreciated - continue IV clinda/dapto/zosyn. Can d/c clinda after 48 hours. f/u BCx. Repeat CT today shows expansion but no abdominal cavitary involvement DMII, newly diagnosed - A1c 7% - would benefit from diabetic teaching consult. Continue ISS w/ goal < 130 Lower extremity edema - likely venous stasis changes, doppler negative for CVT, stable and unchanged
[2017-03-23] MEDS ORDERED: KETOROLAC TROMETHAMINE 30 MG/ML VIAL IV STA (14:32)
[2017-03-23] MEDS: ONDANSETRON INJ 2 MG/ML 2 ML VIAL IV PRN ×2 (15:34→22:19)
[2017-03-23] MEDS: KETOROLAC TROMETHAMINE 30 MG/ML VIAL IV PRN (22:15)
[2017-03-24] MEDS: PIPERACILL/TAZOBAC IV 4.5 GM in DEXTROSE 5% 100ML 100 ML IV SCH ×4 (00:20→23:46)
[2017-03-24] MEDS: CLINDAMYCIN IV 900 MG in DEXTROSE 5% 100ML 100 ML IV SCH ×3 (05:29→21:48)
[2017-03-24] MEDS: HEPARIN SOD 5000 UNIT/0.5 ML CARP SQ SCH ×3 (05:34→22:40)
[2017-03-24 07:11] VITALS: BP 128/66; PULSE 106; TEMP 36.8; O2SAT 91
[2017-03-24 07:26] LABS: HEMATOCRIT 39.3 % (37-47); MEAN CELL VOLUME 89.1 fL (80-100); MEAN CORPUSCULAR HEMOGLOBIN 28.3 pg (25-34); MEAN CORPUSCULAR HGB CONC 31.8 g/dl (32-36); MEAN PLATELET VOLUME 10.7 fL (7.4-10.4); PLATELET COUNT 230 K/uL (130-400); RED BLOOD COUNT 4.41 M/uL (4.2-5.4); WHITE BLOOD COUNT 9.62 K/uL (4.8-10.8)
[2017-03-24] MEDS: ACETAMINOPHEN 325 MG TAB PO PRN (07:41)
--- NOTE | 2017-03-24 08:47 | Surgery Progress Note ---
Surgery Progress Note Date of Service Mar 24, 2017. Subjective pt developed some drainage of purulent fluid overnight. feels much better since the fluid draining. no new complaints. Objective Vital Signs: Date Time Temp Pulse Resp B/P (MAP) Pulse Ox O2 Delivery O2 Flow Rate FiO2 03/24/17 07:11 36.8 106 22 128/66 (86) 91 Room Air 03/23/17 22:55 36.9 87 18 136/77 (96) 92 Room Air 03/23/17 21:00 Room Air 03/23/17 18:00 94 Room Air 03/23/17 17:10 93 Oxymask 2.0 03/23/17 17:00 90 Room Air 03/23/17 16:30 93 Room Air 03/23/17 16:24 36.9 104 18 128/69 (88) 96 Room Air 03/23/17 15:26 36.8 99 18 138/84 (102) 95 Room Air 03/23/17 15:03 92 Oxymask 2.0 03/23/17 15:03 62 Room Air 03/23/17 14:08 93 Room Air 03/23/17 12:00 20 03/23/17 09:00 92 Room Air General Appearance: no apparent distress Head: normocephalic, atraumatic Neck: no JVD Respiratory/Chest: no respiratory distress, no accessory muscle use Abdomen: + pertinent finding (large pannus with chronic edema and cellulitis. small opening with purulent drainage. area of erythema approx same as yesterday. ) Laboratory Results: Results Past 24 Hours Test 03/23/17 11:14 03/23/17 11:40 03/23/17 12:09 03/23/17 17:01 Range/Units Arterial Blood pH 7.45 7.35-7.45 Arterial Blood Partial Pressure CO2 34 35-46 mmHg Arterial Blood Partial Pressure O2 67 80-95 mm/Hg Arterial Blood HCO3 23 19-24 mmol/L Arterial Blood Oxygen Saturation 94.2 90-95 % Arterial Blood Base Excess -0.4 -9-1.8 mEq/L Arterial Blood Gas Delivery ROOM AIR Lyle Test POS POS Urine Color DK YELLOW Urine Appearance TURBID CLEAR Urine pH 5.5 4.5-7.5 Urine Specific [place] 1.038 1.000-1.030 Urine Protein 1+ NEG Urine Glucose (UA) 2+ NEG Urine Ketones TRACE NEG Urine Occult Blood 3+ NEG Urine Nitrite NEG NEG Urine Bilirubin NEG NEG Urine Urobilinogen POS NEG Urine Leukocyte Esterase SMALL NEG Urine WBC (Auto) 10-30 0-5 /hpf Urine RBC (Auto) 10-30 0-4 /hpf Urine Hyaline Casts (Auto) 5-10 0-5 /lpf Urine Epithelial Cells (Auto) >30 0-5 /lpf Urine Bacteria (Auto) NEG NEG Urine Renal Epithelial Cells 0-5 /lpf Urine Crystals CALCIUM OXALATE NONE PRSENT Urine Yeast (Auto) NONE PRSENT Bedside Glucose 133 179 70-90 mg/dl Test 03/23/17 20:36 03/24/17 07:16 03/24/17 08:06 Range/Units Bedside Glucose 129 158 70-90 mg/dl White Blood Count 9.62 4.8-10.8 K/uL Red Blood Count 4.41 4.2-5.4 M/uL Hemoglobin 12.5 12.0-16.0 g/dL Hematocrit 39.3 37-47 % Mean Corpuscular Volume 89.1 80-100 fL Mean Corpuscular Hemoglobin 28.3 25-34 pg Mean Corpuscular Hemoglobin Concent 31.8 32-36 g/dl RDW Standard Deviation 48.6 36.4-46.3 fL RDW Coefficient of Variation 14.9 11.5-14.5 % Platelet Count 230 130-400 K/uL Mean Platelet Volume 10.7 7.4-10.4 fL Total Creatine Kinase 41 26-192 U/L Microbiology Results 03/23/17 Urine Culture, Received Pending 03/24/17 Gram Stain - Final, Resulted 03/24/17 Wound Culture, Resulted Pending Assessment & Plan 03/24/17 ct showed no fluid however she started draining overnight. it is unclear to me clinically where the fluid collection is for now, she is feeling better. will do local wound care. fluid cultured. continue IV antibiotics fluid draining nicely on it's own for now. will continue to follow along. may need formal I&D however for now it is unclear where I would make the incision and she might improve now with spontaneous drainage. 03/23/17 clinically doing ok. wbc still 13,[address] scan tomorrow to evaluate for developing fluid collection cont iv antibiotics 03/23/17 clinically doing ok. wbc still 13,[address] scan tomorrow to evaluate for developing fluid collection cont iv antibiotics
[2017-03-24] MEDS: INSULIN ASPART 100 UNITS/ML 3 ML PEN SC SCH ×4 (08:53→21:46)
[2017-03-24] MEDS: LACTOBACILLUS ACIDOPHILUS (FLORANEX) TAB PO SCH ×3 (08:54→19:08)
[2017-03-24] MEDS: DAPTOmycin IV 900 MG in SODIUM CHLORIDE 0.9% 50ML 50 ML IV SCH (12:14)
[2017-03-24 15:26] VITALS: BP 143/80; PULSE 85; TEMP 36.8; O2SAT 92
--- NOTE | 2017-03-24 18:48 | Family Medicine Progress Note ---
Progress Note Date of Service Mar 24, 2017. Subjective Pt evaluation today including: conversation w/ patient, physical exam, chart review, lab review, review of inpatient medication list Pain: 5/10 pain reported PO Intake: Tolerating PO intake Voiding: no voiding problems Ms. hBatt is a 41 year old female who reports that the pain in her lower abdomen has improved today, and is now down to a 5/10 in severity. She states that her lesion started spontaneously draining last night, and that her pain has lessened since then. She reports that she is eating well, and having regular bowel movements, her last one was this morning an she denies the presence of any blood. She feels well otherwise, denies fatigue, dizziness, chest pain or shortness of breath. She was feeling nauseous yesterday, and had one dose of Zofran for that, but reports no nausea today. Constitutional: No fever, No chills, No sweats, No weight loss Respiratory: No cough, No sputum, No wheezing, No shortness of breath Cardiovascular: + edema (bilateral lower extremity edema), No chest pain, No orthopnea Abdomen: + pain (lower abdominal pain and discomfort), No nausea, No vomiting, No diarrhea, No constipation Female : No dysuria, No urinary frequency, No hematuria Medications Current Inpatient Medications Medications (Trade) Dose Ordered Sig/Everett Route Start Time Stop Time Status Last Admin Dose Admin Ioversol (Optiray 320) 100 ml UD PRN IV 03/21/17 23:15 03/25/17 23:14 Acetaminophen (Tylenol Tab) 650 mg Q4H PRN PO 03/22/17 03:15 04/21/17 03:14 03/24/17 07:41 650 MG Polyethylene (Miralax Powder Packet) 17 gm DAILY PRN PO 03/22/17 03:15 04/21/17 03:14 Ondansetron HCl (Zofran Inj) 4 mg Q6H PRN IV 03/22/17 03:15 04/21/17 03:14 03/23/17 22:19 4 MG Piperacillin Sod/ Tazobactam Sod 4.5 gm/Dextrose 120 ml @ 30 mls/hr Q8H IV 03/22/17 08:00 04/01/17 07:59 03/24/17 08:01 30 MLS/HR Clindamycin Phosphate 900 mg/ Dextrose 106 ml @ 100 mls/hr Q8H IV 03/22/17 06:00 04/01/17 05:59 03/24/17 05:29 100 MLS/HR Lactobacillus Acidophilus (Floranex Tab) 4 tab TIDM PO 03/22/17 08:00 04/21/17 07:59 03/24/17 08:54 4 TAB Heparin Sodium (Porcine) (Heparin Sq 5000 Unit/0.5ml) 5,000 unit Q8H SQ 03/22/17 06:00 04/21/17 05:59 03/24/17 05:34 5,000 UNIT Insulin Aspart (novoLOG ASPART) SLIDING SCALE G... ACHS SC 03/22/17 07:00 04/21/17 06:59 03/24/17 08:53 1 UNITS Piperacillin Sod/ Tazobactam Sod (Consult) 1 ea UD PRN N/A 03/22/17 05:30 04/21/17 05:29 Glucose (Glucose 40% Gel) 15-30 GRAMS 15 GRAMS... UD PRN PO 03/22/17 05:45 04/21/17 05:44 Glucose (Glucose Chew Tab) 4-8 Tablets 4 Tabl... UD PRN PO 03/22/17 05:45 04/21/17 05:44 Dextrose (Dextrose 50% 50ML Syringe) 25-50ML OF 50% DW IV FOR... UD PRN IV 03/22/17 05:45 04/21/17 05:44 Glucagon (Glucagon Inj) 1 mg UD PRN SQ 03/22/17 05:45 04/21/17 05:44 Daptomycin 900 mg/ Sodium Chloride 68 ml @ 100 mls/hr Q24H IV 03/22/17 12:00 04/01/17 11:59 03/23/17 12:19 100 MLS/HR Ioversol (Optiray 320) 125 ml UD PRN IV 03/23/17 11:30 03/27/17 11:29 Ketorolac Tromethamine (Toradol Inj) 30 mg Q6H PRN IV 03/23/17 19:00 03/28/17 18:59 03/23/17 22:15 30 MG Objective Vital Signs Date Time Temp Pulse Resp B/P (MAP) Pulse Ox O2 Delivery O2 Flow Rate FiO2 03/24/17 07:11 36.8 106 22 128/66 (86) 91 Room Air 03/23/17 22:55 36.9 87 18 136/77 (96) 92 Room Air 03/23/17 21:00 Room Air 03/23/17 18:00 94 Room Air 03/23/17 17:10 93 Oxymask 2.0 03/23/17 17:00 90 Room Air 03/23/17 16:30 93 Room Air 03/23/17 16:24 36.9 104 18 128/69 (88) 96 Room Air 03/23/17 15:26 36.8 99 18 138/84 (102) 95 Room Air 03/23/17 15:03 92 Oxymask 2.0 03/23/17 15:03 62 Room Air 03/23/17 14:08 93 Room Air 03/23/17 12:00 20 Physical Exam General Appearance: WD/WN, no apparent distress Respiratory/Chest: chest non-tender, lungs clear, normal breath sounds, no respiratory distress, no accessory muscle use Cardiovascular: regular rate, rhythm, no gallop, no JVD, no murmur, + pertinent finding (bilateral lower extremity eema) Abdomen: normal bowel sounds, + tenderness (tender over lower abdomen), + pertinent finding (erythematous, fluctuant lesion extending from RLQ across suprapubic area) Neurologic/Psychiatric: alert, normal mood/affect, oriented x 3 Laboratory Results 03/24/17 07:16 Test 03/23/17 11:14 03/23/17 11:40 03/24/17 07:16 03/24/17 08:06 Arterial Blood pH 7.45 (7.35-7.45) Arterial Blood Partial Pressure CO2 34 mmHg (35-46) Arterial Blood Partial Pressure O2 67 mm/Hg (80-95) Arterial Blood HCO3 23 mmol/L (19-24) Arterial Blood Oxygen Saturation 94.2 % (90-95) Arterial Blood Base Excess -0.4 mEq/L (-9-1.8) Arterial Blood Gas Delivery ROOM AIR Lyle Test POS (POS) Urine Color DK YELLOW Urine Appearance TURBID (CLEAR) Urine pH 5.5 (4.5-7.5) Urine Specific [place] 1.038 (1.000-1.030) Urine Protein 1+ (NEG) Urine Glucose (UA) 2+ (NEG) Urine Ketones TRACE (NEG) Urine Occult Blood 3+ (NEG) Urine Nitrite NEG (NEG) Urine Bilirubin NEG (NEG) Urine Urobilinogen POS (NEG) Urine Leukocyte Esterase SMALL (NEG) Urine WBC (Auto) 10-30 /hpf (0-5) Urine RBC (Auto) 10-30 /hpf (0-4) Urine Hyaline Casts (Auto) 5-10 /lpf (0-5) Urine Epithelial Cells (Auto) >30 /lpf (0-5) Urine Bacteria (Auto) NEG (NEG) Urine Renal Epithelial Cells /lpf (0-5) Urine Crystals CALCIUM OXALATE (NONE Urine Yeast (Auto) (NONE PRSENT) Red Blood Count 4.41 M/uL (4.2-5.4) Mean Corpuscular Volume 89.1 fL (80-100) Mean Corpuscular Hemoglobin 28.3 pg (25-34) Mean Corpuscular Hemoglobin Concent 31.8 g/dl (32-36) RDW Standard Deviation 48.6 fL (36.4-46.3) RDW Coefficient of Variation 14.9 % (11.5-14.5) Mean Platelet Volume 10.7 fL (7.4-10.4) Total Creatine Kinase 41 U/L (26-192) Bedside Glucose 158 mg/dl (70-90) Assessment and Plan 41 year old female with 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 Abdominal Wall Cellulitis: - clinically improving reports improvement in pain since spontaneous drainage - drainage fluid cultured & results pending - As per Dr. Leigh, cont IV antibiotics, may need I/D but will cont to watch as draining well - UA/UCx both normal - Continue Zosyn, clindamycin and Daptomycin per pharmacy recommendation for MRSA coverage - will wait for culture results to tailor abx - No more episodes of hypotension and tachycardia - will continue to monitor Left lower extremity swelling: - likely due to venous stasis as longstanding, with negative doppler US - Would benefit from compression stockings on d/c? Diabetes Mellitus Type 2 - Continue sliding scale insulin (range: 100-130 with correction factor of 30) - Glucose today - 129, well controlled - Hemoglobin A1c 7 - Had a long discussion regarding diabetes management on d/c. We discussed the importance of diet & exercise, and that this would be the preferred management for her diabetes before we consider oral hypoglycemic agents. 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 She states that she had lost the weight previously , but then after giving to her daughter, put the weight back on. We talked about her meals on a typical day and she states that she generally skips breakfast, and has one main meal a day, either lunch or dinner. She would usually have yoghurt or fruit for lunch, and then perhaps a hoagie for dinner. We talked about the importance of eating three meals a day, instead of one large meal. She also states that she drinks water & coke, and we talked about trying to cut down on her coke intake and instead drink more water. She does not exercise much - she used to rollerblade and bike ride, and go to the gym, however since she has put on weight, she is self conscious about going to the gym. We talked about going for a walk around her neighbourhood as an activity she could do by herself or with her daughter. She states that she is willing to try and make these changes and will f/u in clinic VTE Prophylaxis - Heparin SQ Q8H Code - Full Disposition - remains on med/surg Resident Physician Supervision Note: I interviewed and examined the patient. Discussed with Dr. Valdez and agree with findings and plan as documented in the note. Any exceptions or clarifications are listed here: None Documented By: Khanh Bañuelos feeling better now that abdomen draining. d/w R1 in regards to lifestyle discussions - see above. all other ROS otherwise negative except for as above vitals noted nad breathing unlabored area of erythema larger than at admission but far less red. abdominal wall gas forming cellulitis - abx, drainign spontaneouslly, improving new DM2 - lifestyle management otherwise as above Resident Tracking Resident Involvement: Resident Care Provided Care Provided: Adult Hospital Medicine
--- NOTE | 2017-03-24 21:30 | Infectious Disease Progress Nt ---
Progress Note Date of Service Mar 24, 2017. Subjective Pt evaluation today including: conversation w/ patient, physical exam, chart review, lab review, review of studies, conversation w/ child development consultant, review of inpatient medication list Patient feeling better with drainage of area of infection. Tolerating antibiotics without apparent difficulty. Gram stain shows gram-positive cocci and bacilli, culture is still pending. No other new complaints. Currently afebrile. All Other Systems: Reviewed and Negative Medications Current Inpatient Medications Medications (Trade) Dose Ordered Sig/Everett Route Start Time Stop Time Status Last Admin Dose Admin Ioversol (Optiray 320) 100 ml UD PRN IV 03/21/17 23:15 03/25/17 23:14 Acetaminophen (Tylenol Tab) 650 mg Q4H PRN PO 03/22/17 03:15 04/21/17 03:14 03/24/17 07:41 650 MG Polyethylene (Miralax Powder Packet) 17 gm DAILY PRN PO 03/22/17 03:15 04/21/17 03:14 Ondansetron HCl (Zofran Inj) 4 mg Q6H PRN IV 03/22/17 03:15 04/21/17 03:14 03/23/17 22:19 4 MG Piperacillin Sod/ Tazobactam Sod 4.5 gm/Dextrose 120 ml @ 30 mls/hr Q8H IV 03/22/17 08:00 04/01/17 07:59 03/24/17 15:33 30 MLS/HR Clindamycin Phosphate 900 mg/ Dextrose 106 ml @ 100 mls/hr Q8H IV 03/22/17 06:00 04/01/17 05:59 03/24/17 13:44 100 MLS/HR Lactobacillus Acidophilus (Floranex Tab) 4 tab TIDM PO 03/22/17 08:00 04/21/17 07:59 03/24/17 19:08 4 TAB Heparin Sodium (Porcine) (Heparin Sq 5000 Unit/0.5ml) 5,000 unit Q8H SQ 03/22/17 06:00 04/21/17 05:59 03/24/17 13:46 5,000 UNIT Insulin Aspart (novoLOG ASPART) SLIDING SCALE G... ACHS SC 03/22/17 07:00 04/21/17 06:59 03/24/17 12:13 1 UNITS Piperacillin Sod/ Tazobactam Sod (Consult) 1 ea UD PRN N/A 03/22/17 05:30 04/21/17 05:29 Glucose (Glucose 40% Gel) 15-30 GRAMS 15 GRAMS... UD PRN PO 03/22/17 05:45 04/21/17 05:44 Glucose (Glucose Chew Tab) 4-8 Tablets 4 Tabl... UD PRN PO 03/22/17 05:45 04/21/17 05:44 Dextrose (Dextrose 50% 50ML Syringe) 25-50ML OF 50% DW IV FOR... UD PRN IV 03/22/17 05:45 04/21/17 05:44 Glucagon (Glucagon Inj) 1 mg UD PRN SQ 03/22/17 05:45 04/21/17 05:44 Daptomycin 900 mg/ Sodium Chloride 68 ml @ 100 mls/hr Q24H IV 03/22/17 12:00 04/01/17 11:59 03/24/17 12:14 100 MLS/HR Ioversol (Optiray 320) 125 ml UD PRN IV 03/23/17 11:30 03/27/17 11:29 Ketorolac Tromethamine (Toradol Inj) 30 mg Q6H PRN IV 03/23/17 19:00 03/28/17 18:59 03/23/17 22:15 30 MG Objective Vital Signs Date Time Temp Pulse Resp B/P (MAP) Pulse Ox O2 Delivery O2 Flow Rate FiO2 03/24/17 16:00 Room Air 03/24/17 15:26 36.8 85 18 143/80 (101) 92 Room Air 03/24/17 07:40 Room Air 03/24/17 07:11 36.8 106 22 128/66 (86) 91 Room Air 03/23/17 22:55 36.9 87 18 136/77 (96) 92 Room Air Physical Exam General Appearance: WD/WN, no apparent distress Eyes: normal inspection, sclerae normal ENT: normal ENT inspection, pharynx normal Neck: supple, no adenopathy, trachea midline Respiratory/Chest: lungs clear, normal breath sounds, no respiratory distress Cardiovascular: regular rate, rhythm, no gallop, no murmur Abdomen: normal bowel sounds, non tender, soft, no organomegaly Extremities: non-tender, no calf tenderness Neurologic/Psychiatric: alert, normal mood/affect Skin: normal color, + pertinent finding (slight decrease in erythema RLQ, area of sero-purulent drainage) Lymphatic: no adenopathy Laboratory Results Date/Time Source Procedure Growth Status 03/24/17 00:08 Drainage - Surface Abdomen Gram Stain - Final Resulted 03/24/17 00:08 Drainage - Surface Abdomen Wound Culture Pending Resulted Last 24 Hours Test 03/24/17 07:16 03/24/17 08:06 03/24/17 12:00 03/24/17 16:55 White Blood Count 9.62 K/uL Red Blood Count 4.41 M/uL Hemoglobin 12.5 g/dL Hematocrit 39.3 % Mean Corpuscular Volume 89.1 fL Mean Corpuscular Hemoglobin 28.3 pg Mean Corpuscular Hemoglobin Concent 31.8 g/dl RDW Standard Deviation 48.6 fL RDW Coefficient of Variation 14.9 % Platelet Count 230 K/uL Mean Platelet Volume 10.7 fL Total Creatine Kinase 41 U/L Bedside Glucose 158 mg/dl 155 mg/dl 111 mg/dl Patient: NOHELIA CARRENO Address1: [address] [place] [address] Rec: [id number] Address2: Acct ID: [id number] [facility] Zip: [place] [address] Date: 1975 Sex: F Room/Bed: N386- Ref Phy: No Doctor, Assigned SC: HARMONY Att Phy: Huang Garcia MD Report #: [id number] Nilda Phy: No Doctor, Assigned Test: APIV Admit Phy: Naye Muse MD Supervisor Furnace Process: SUSHILA Interpreting Phy: Herrera Whitney M.D. Diagnosis: ABDOMINAL WALL CELLULITIS Ordering Phy: Medardo Carter M.D. Service Date: 03/23/17 Admit Date: 03/21/1707/22/17 MNE: [id number] CONF: DICTATED BY: Herrera Whitney M.D.]] CC: Huang Garcia MD No Doctor, Assigned Medardo Carter M.D. Endcc: [~ rep ct add3]] CT ABD/PELVIS IV CONTRAST ONLY CLINICAL HISTORY: Abdominal wall pain. Cellulitis. Possible abscess. COMPARISON STUDY: 03/22/2017 TECHNIQUE: Following the IV administration of 94 mL of Optiray-320, CT scan of the abdomen and pelvis was performed from the lung bases to the proximal femurs. Images are reviewed in the axial, sagittal, and coronal planes. IV contrast was administered without complication. A dose lowering technique was utilized adhering to the principles of ALARA. CT DOSE: 2281.74 mGy.cm FINDINGS: Lower chest: There is mild bibasilar atelectatic change. Liver: There is mild hepatic steatosis. No focal masses are visualized. Gallbladder: Unremarkable. Spleen: Normal in size and attenuation. Pancreas: Unremarkable. Adrenal glands: Unremarkable. Kidneys: There is symmetric renal cortical enhancement. The kidneys are normal in size without hydronephrosis. Bowel: There are no transition zones indicate bowel obstruction. There is no evidence of acute appendicitis. There is no evidence of acute diverticulitis. Peritoneum: There is no intraperitoneal free air or abdominal ascites. Vasculature: The abdominal aorta is normal in course and caliber. Adenopathy: There are mildly prominent aortocaval and inguinal lymph nodes, unchanged the prior study and likely reactive. Pelvic viscera: The bladder, and pelvic viscera are unremarkable. Skeletal structures: There is infiltration of the fat within the subcutaneous tissues of the lower anterior abdominal wall. There is gas present within the soft tissue. There is overlying skin thickening which appears slightly increased. There are no fluid collections to indicate a drainable abscess. IMPRESSION: 1. Progressive lower abdominal wall skin thickening, and infiltration of the subcutaneous fat. There is gas present within the soft tissues. In the absence of an open wound or trauma, this suggests a gas-forming infectious process. There is no intraperitoneal involvement. There are no fluid collections to indicate a drainable abscess. 2. No evidence of bowel obstruction. No evidence of free air 3. No evidence of acute appendicitis. No evidence of acute diverticulitis. Electronically signed by: Herrera Whitney M.D. 03/23/2017 12:13 PM Dictated Date/Time: 03/23/2017 12:07 PM Assessment and Plan 41-year-old female with history of recurrent lower extremity cellulitis, now with right lower quadrant abdominal wall/ groin cellulitis. Given presence of soft tissue gas, mixture necrotizing infection possibility. Given the patient is allergic to vancomycin, daptomycin appropriate to cover potential for MRSA infection. Would continue patient on current combination with clindamycin for 48 hours for potential antitoxin effect. Will adjust once further culture results are available and clinical response assessed.
[2017-03-24 22:50] VITALS: BP 158/84; PULSE 85; TEMP 36.8; O2SAT 94
[2017-03-25] MEDS: CLINDAMYCIN IV 900 MG in DEXTROSE 5% 100ML 100 ML IV SCH (05:51)
[2017-03-25] MEDS: HEPARIN SOD 5000 UNIT/0.5 ML CARP SQ SCH ×3 (05:52→21:09)
[2017-03-25 07:23] VITALS: BP 127/87; PULSE 107; TEMP 36.7; O2SAT 92
[2017-03-25] MEDS: ONDANSETRON INJ 2 MG/ML 2 ML VIAL IV PRN ×2 (07:31→18:08)
[2017-03-25 07:38] LABS: MEAN CELL VOLUME 88.9 fL (80-100); MEAN CORPUSCULAR HEMOGLOBIN 29.6 pg (25-34); MEAN CORPUSCULAR HGB CONC 33.2 g/dl (32-36); MEAN PLATELET VOLUME 10.9 fL (7.4-10.4); PLATELET COUNT 257 K/uL (130-400); RED BLOOD COUNT 4.16 M/uL (4.2-5.4); WHITE BLOOD COUNT 8.93 K/uL (4.8-10.8)
[2017-03-25 08:00] VITALS: O2SAT 92
[2017-03-25] MEDS: PIPERACILL/TAZOBAC IV 4.5 GM in DEXTROSE 5% 100ML 100 ML IV SCH ×3 (08:06→23:51)
[2017-03-25] MEDS: LACTOBACILLUS ACIDOPHILUS (FLORANEX) TAB PO SCH ×3 (08:06→18:04)
[2017-03-25 08:16] VITALS: O2SAT 90
[2017-03-25 08:17] LABS: CREATININE 0.63 mg/dl (0.60-1.20)
[2017-03-25] MEDS: INSULIN ASPART 100 UNITS/ML 3 ML PEN SC SCH ×4 (08:57→21:09)
--- NOTE | 2017-03-25 09:49 | Surgery Progress Note ---
Surgery Progress Note Date of Service Mar 25, 2017. Subjective Patient sitting in chair next to bed. Reports that she is feeling better today. No new complaints overnight. Objective Vital Signs: Date Time Temp Pulse Resp B/P (MAP) Pulse Ox O2 Delivery O2 Flow Rate FiO2 03/25/17 08:16 90 Room Air 03/25/17 08:00 92 Room Air 03/25/17 07:23 36.7 107 20 127/87 (100) 92 Room Air 03/24/17 23:45 Room Air 03/24/17 22:50 36.8 85 18 158/84 (108) 94 Room Air 03/24/17 16:00 Room Air 03/24/17 15:26 36.8 85 18 143/80 (101) 92 Room Air General Appearance: WD/WN, no apparent distress Head: normocephalic, atraumatic Abdomen: + pertinent finding (Patient has large pannus with chronic edema and cellulitis- erythema is improving. Drainage amount slightly decreased from yesterday. ) Laboratory Results: Results Past 24 Hours Test 03/24/17 12:00 03/24/17 16:55 03/24/17 20:58 03/25/17 07:18 Range/Units Bedside Glucose 155 111 216 70-90 mg/dl White Blood Count 8.93 4.8-10.8 K/uL Red Blood Count 4.16 4.2-5.4 M/uL Hemoglobin 12.3 12.0-16.0 g/dL Hematocrit 37.0 37-47 % Mean Corpuscular Volume 88.9 80-100 fL Mean Corpuscular Hemoglobin 29.6 25-34 pg Mean Corpuscular Hemoglobin Concent 33.2 32-36 g/dl RDW Standard Deviation 49.0 36.4-46.3 fL RDW Coefficient of Variation 15.0 11.5-14.5 % Platelet Count 257 130-400 K/uL Mean Platelet Volume 10.9 7.4-10.4 fL Creatinine 0.63 0.60-1.20 mg/dl Est Creatinine Clear Calc Drug Dose 175.6 ml/min Estimated GFR () 129.1 Estimated GFR (Non- 111.4 Assessment & Plan Dr. Leigh in to see and examine patient. Patient improving. At this time, no surgical intervention indicated- will continue local wound care. Continue IV antibiotics- may need to continue IV antibiotics after discharge. Will continue to follow.
--- NOTE | 2017-03-25 09:50 | Surgery Progress Note ---
Surgery Progress Note Date of Service Mar 25, 2017. Subjective pt feeling much better. pain markedly improved. drainage has decreased. Objective Vital Signs: Date Time Temp Pulse Resp B/P (MAP) Pulse Ox O2 Delivery O2 Flow Rate FiO2 03/25/17 08:16 90 Room Air 03/25/17 08:00 92 Room Air 03/25/17 07:23 36.7 107 20 127/87 (100) 92 Room Air 03/24/17 23:45 Room Air 03/24/17 22:50 36.8 85 18 158/84 (108) 94 Room Air 03/24/17 16:00 Room Air 03/24/17 15:26 36.8 85 18 143/80 (101) 92 Room Air General Appearance: no apparent distress Neck: supple, no JVD Respiratory/Chest: no respiratory distress, no accessory muscle use Abdomen: + pertinent finding (area of cellulitis still same size but redness has decreased. minimal drainage. ) Laboratory Results: Results Past 24 Hours Test 03/24/17 12:00 03/24/17 16:55 03/24/17 20:58 03/25/17 07:18 Range/Units Bedside Glucose 155 111 216 70-90 mg/dl White Blood Count 8.93 4.8-10.8 K/uL Red Blood Count 4.16 4.2-5.4 M/uL Hemoglobin 12.3 12.0-16.0 g/dL Hematocrit 37.0 37-47 % Mean Corpuscular Volume 88.9 80-100 fL Mean Corpuscular Hemoglobin 29.6 25-34 pg Mean Corpuscular Hemoglobin Concent 33.2 32-36 g/dl RDW Standard Deviation 49.0 36.4-46.3 fL RDW Coefficient of Variation 15.0 11.5-14.5 % Platelet Count 257 130-400 K/uL Mean Platelet Volume 10.9 7.4-10.4 fL Creatinine 0.63 0.60-1.20 mg/dl Est Creatinine Clear Calc Drug Dose 175.6 ml/min Estimated GFR () 129.1 Estimated GFR (Non- 111.4 Assessment & Plan 03/25/17 pt clinically improving continue IV antibiotics per ID cultures still pending. will continue to follow along. 03/24/17 ct showed no fluid however she started draining overnight. it is unclear to me clinically where the fluid collection is for now, she is feeling better. will do local wound care. fluid cultured. continue IV antibiotics fluid draining nicely on it's own for now. will continue to follow along. may need formal I&D however for now it is unclear where I would make the incision and she might improve now with spontaneous drainage. 03/23/17 clinically doing ok. wbc still 13,[address] scan tomorrow to evaluate for developing fluid collection cont iv antibiotics 03/24/17 ct showed no fluid however she started draining overnight. it is unclear to me clinically where the fluid collection is for now, she is feeling better. will do local wound care. fluid cultured. continue IV antibiotics fluid draining nicely on it's own for now. will continue to follow along. may need formal I&D however for now it is unclear where I would make the incision and she might improve now with spontaneous drainage. 03/23/17 clinically doing ok. wbc still 13,[address] scan tomorrow to evaluate for developing fluid collection cont iv antibiotics
[2017-03-25] MEDS: DAPTOmycin IV 900 MG in SODIUM CHLORIDE 0.9% 50ML 50 ML IV SCH (11:46)
--- NOTE | 2017-03-25 12:54 | Family Medicine Progress Note ---
Progress Note Date of Service Mar 25, 2017. Subjective Pt evaluation today including: conversation w/ patient, physical exam, chart review, lab review, review of inpatient medication list Pain: 5/10 pain reported PO Intake: Tolerating PO intake Voiding: no voiding problems Ms. Bhatt is a 41 year old female who reports a decrease in her abdominal pain. She still struggles with getting in and out of bed due to the position change worsening her pain, but is otherwise feeling much better. She denies fever, nausea/vomiting, chills and is eating well. Constitutional: No fever, No chills, No sweats, No weight loss Respiratory: No cough, No sputum, No wheezing, No shortness of breath Cardiovascular: + edema, No chest pain, No orthopnea, No PND Abdomen: + pain (RLQ pain & discomfort), No nausea, No vomiting, No diarrhea , No constipation Female : No dysuria All Other Systems: Reviewed and Negative Medications Current Inpatient Medications Medications (Trade) Dose Ordered Sig/Everett Route Start Time Stop Time Status Last Admin Dose Admin Ioversol (Optiray 320) 100 ml UD PRN IV 03/21/17 23:15 03/25/17 23:14 Acetaminophen (Tylenol Tab) 650 mg Q4H PRN PO 03/22/17 03:15 04/21/17 03:14 03/24/17 07:41 650 MG Polyethylene (Miralax Powder Packet) 17 gm DAILY PRN PO 03/22/17 03:15 04/21/17 03:14 Ondansetron HCl (Zofran Inj) 4 mg Q6H PRN IV 03/22/17 03:15 04/21/17 03:14 03/25/17 07:31 4 MG Piperacillin Sod/ Tazobactam Sod 4.5 gm/Dextrose 120 ml @ 30 mls/hr Q8H IV 03/22/17 08:00 04/01/17 07:59 03/25/17 08:06 30 MLS/HR Lactobacillus Acidophilus (Floranex Tab) 4 tab TIDM PO 03/22/17 08:00 04/21/17 07:59 03/25/17 08:06 4 TAB Heparin Sodium (Porcine) (Heparin Sq 5000 Unit/0.5ml) 5,000 unit Q8H SQ 03/22/17 06:00 04/21/17 05:59 03/24/17 22:40 5,000 UNIT Insulin Aspart (novoLOG ASPART) SLIDING SCALE G... ACHS SC 03/22/17 07:00 04/21/17 06:59 03/25/17 08:57 1 UNITS Piperacillin Sod/ Tazobactam Sod (Consult) 1 ea UD PRN N/A 03/22/17 05:30 04/21/17 05:29 Glucose (Glucose 40% Gel) 15-30 GRAMS 15 GRAMS... UD PRN PO 03/22/17 05:45 04/21/17 05:44 Glucose (Glucose Chew Tab) 4-8 Tablets 4 Tabl... UD PRN PO 03/22/17 05:45 04/21/17 05:44 Dextrose (Dextrose 50% 50ML Syringe) 25-50ML OF 50% DW IV FOR... UD PRN IV 03/22/17 05:45 04/21/17 05:44 Glucagon (Glucagon Inj) 1 mg UD PRN SQ 03/22/17 05:45 04/21/17 05:44 Daptomycin 900 mg/ Sodium Chloride 68 ml @ 100 mls/hr Q24H IV 03/22/17 12:00 04/01/17 11:59 03/25/17 11:46 100 MLS/HR Ioversol (Optiray 320) 125 ml UD PRN IV 03/23/17 11:30 03/27/17 11:29 Ketorolac Tromethamine (Toradol Inj) 30 mg Q6H PRN IV 03/23/17 19:00 03/28/17 18:59 03/23/17 22:15 30 MG Objective Vital Signs Date Time Temp Pulse Resp B/P (MAP) Pulse Ox O2 Delivery O2 Flow Rate FiO2 03/25/17 08:16 90 Room Air 03/25/17 08:00 92 Room Air 03/25/17 07:23 36.7 107 20 127/87 (100) 92 Room Air 03/24/17 23:45 Room Air 03/24/17 22:50 36.8 85 18 158/84 (108) 94 Room Air 03/24/17 16:00 Room Air 03/24/17 15:26 36.8 85 18 143/80 (101) 92 Room Air Physical Exam General Appearance: WD/WN, no apparent distress Respiratory/Chest: chest non-tender, lungs clear, normal breath sounds, no respiratory distress, no accessory muscle use Cardiovascular: regular rate, rhythm, no gallop, no JVD, no murmur, + pertinent finding (bilateral lower extremity edema) Abdomen: normal bowel sounds, no organomegaly, no pulsatile mass, + tenderness (tenderness over RLQ), + pertinent finding (erythematous lesion extending from RLQ across abdomen to left side) Neurologic/Psychiatric: alert, normal mood/affect, oriented x 3 Laboratory Results 03/25/17 07:18 03/25/17 07:18 Test 03/25/17 07:18 03/25/17 11:57 Red Blood Count 4.16 M/uL (4.2-5.4) Mean Corpuscular Volume 88.9 fL (80-100) Mean Corpuscular Hemoglobin 29.6 pg (25-34) Mean Corpuscular Hemoglobin Concent 33.2 g/dl (32-36) RDW Standard Deviation 49.0 fL (36.4-46.3) RDW Coefficient of Variation 15.0 % (11.5-14.5) Mean Platelet Volume 10.9 fL (7.4-10.4) Est Creatinine Clear Calc Drug Dose 175.6 ml/min Estimated GFR () 129.1 Estimated GFR (Non- 111.4 Bedside Glucose 155 mg/dl (70-90) Assessment and Plan 41 year old female with hx of recurrent cellulitis in legs presented with cellulitis of the abdominal wall Abdominal Wall Cellulitis: - continues to improve - cellulitis area is roughly the same but erythema has lessened. Draining less today - wound culture positive for gram negative bacilli - sensitivity pending - As per Dr. Leigh, cont IV antibiotics, will likely not need I/D due to spontaneous drainage - Continue Zosyn, clindamycin and Daptomycin per pharmacy recommendation for MRSA coverage - will wait for culture results to tailor abx - heparin injections moved to right thigh to avoid cellulitis area Left lower extremity swelling: - likely due to venous stasis as longstanding, with negative doppler US - Would benefit from compression stockings on d/c & will likely improve with diet & weight loss plan Diabetes Mellitus Type 2 - Continue sliding scale insulin (range: 100-130 with correction factor of 30) - Glucose today - 155, well controlled - Hemoglobin A1c 7 - will f/u in clinic regarding lifestyle changes for managing diabetes VTE Prophylaxis - Heparin SQ Q8H Code - Full Disposition - remains on med/surg Resident Physician Supervision Note: I interviewed and examined the patient. Discussed with Dr. Anguiano and agree with findings and plan as documented in the note. Any exceptions or clarifications are listed here: None Documented By: Khanh Bañuelos feeling much better. d/w R1 regarding lifestyle changes all other ROS otherwise negative except for as above vitals noted nad breathing unlabored no pallor or icterus abdominal wall cellulitis w sepsis (SIRS being WBC and HR) present on admission - improving. await final cultures. hopefully home on PO abx tomorrow new onset DM2 - lifestyle change Resident Tracking Resident Involvement: Resident Care Provided Care Provided: Adult Hospital Medicine
--- NOTE | 2017-03-25 13:30 | Infectious Disease Progress Nt ---
Progress Note Date of Service Mar 25, 2017. Subjective Pt evaluation today including: conversation w/ patient, physical exam, chart review, lab review, review of studies, conversation w/ senior wind energy consultant, review of inpatient medication list Patient feeling better today with less drainage from her abdominal infection. Pain improving. No significant fever. Cultures now growing gram-negative bacilli. Tolerating antibiotic without apparent difficulty. All Other Systems: Reviewed and Negative Medications Current Inpatient Medications Medications (Trade) Dose Ordered Sig/Everett Route Start Time Stop Time Status Last Admin Dose Admin Ioversol (Optiray 320) 100 ml UD PRN IV 03/21/17 23:15 03/25/17 23:14 Acetaminophen (Tylenol Tab) 650 mg Q4H PRN PO 03/22/17 03:15 04/21/17 03:14 03/24/17 07:41 650 MG Polyethylene (Miralax Powder Packet) 17 gm DAILY PRN PO 03/22/17 03:15 04/21/17 03:14 Ondansetron HCl (Zofran Inj) 4 mg Q6H PRN IV 03/22/17 03:15 04/21/17 03:14 03/25/17 07:31 4 MG Piperacillin Sod/ Tazobactam Sod 4.5 gm/Dextrose 120 ml @ 30 mls/hr Q8H IV 03/22/17 08:00 04/01/17 07:59 03/25/17 08:06 30 MLS/HR Lactobacillus Acidophilus (Floranex Tab) 4 tab TIDM PO 03/22/17 08:00 04/21/17 07:59 03/25/17 13:09 4 TAB Heparin Sodium (Porcine) (Heparin Sq 5000 Unit/0.5ml) 5,000 unit Q8H SQ 03/22/17 06:00 04/21/17 05:59 03/24/17 22:40 5,000 UNIT Insulin Aspart (novoLOG ASPART) SLIDING SCALE G... ACHS SC 03/22/17 07:00 04/21/17 06:59 03/25/17 13:12 1 UNITS Piperacillin Sod/ Tazobactam Sod (Consult) 1 ea UD PRN N/A 03/22/17 05:30 04/21/17 05:29 Glucose (Glucose 40% Gel) 15-30 GRAMS 15 GRAMS... UD PRN PO 03/22/17 05:45 04/21/17 05:44 Glucose (Glucose Chew Tab) 4-8 Tablets 4 Tabl... UD PRN PO 03/22/17 05:45 04/21/17 05:44 Dextrose (Dextrose 50% 50ML Syringe) 25-50ML OF 50% DW IV FOR... UD PRN IV 03/22/17 05:45 04/21/17 05:44 Glucagon (Glucagon Inj) 1 mg UD PRN SQ 03/22/17 05:45 04/21/17 05:44 Daptomycin 900 mg/ Sodium Chloride 68 ml @ 100 mls/hr Q24H IV 03/22/17 12:00 04/01/17 11:59 03/25/17 11:46 100 MLS/HR Ioversol (Optiray 320) 125 ml UD PRN IV 03/23/17 11:30 03/27/17 11:29 Ketorolac Tromethamine (Toradol Inj) 30 mg Q6H PRN IV 03/23/17 19:00 03/28/17 18:59 03/23/17 22:15 30 MG Objective Vital Signs Date Time Temp Pulse Resp B/P (MAP) Pulse Ox O2 Delivery O2 Flow Rate FiO2 03/25/17 08:16 90 Room Air 03/25/17 08:00 92 Room Air 03/25/17 07:23 36.7 107 20 127/87 (100) 92 Room Air 03/24/17 23:45 Room Air 03/24/17 22:50 36.8 85 18 158/84 (108) 94 Room Air 03/24/17 16:00 Room Air 03/24/17 15:26 36.8 85 18 143/80 (101) 92 Room Air Physical Exam General Appearance: WD/WN, no apparent distress, + obese Eyes: normal inspection, sclerae normal ENT: normal ENT inspection, pharynx normal Neck: supple, no adenopathy, trachea midline Respiratory/Chest: chest non-tender, lungs clear, normal breath sounds, no respiratory distress Cardiovascular: regular rate, rhythm, no edema, no gallop, no JVD Abdomen: normal bowel sounds, soft, no organomegaly, + tenderness (Mild lower quadrant) Extremities: non-tender, no calf tenderness Neurologic/Psychiatric: alert, oriented x 3 Skin: normal color, no rash, + pertinent finding (Slightly improved cellulitis , no progression) Lymphatic: no adenopathy Laboratory Results RUN DATE: 03/25/17 [facility] LAB PAGE 1 RUN TIME: 1140 Specimen Inquiry PATIENT: NOHELIA CARRENO LOC: [facility] U # : [id number] AGE/SX: 41/F ROOM: [facility] REG : 03/22/[address]: Khanh Bañuelos D.O. : 1975 BED: 2 DIS : STATUS: ADM IN TLOC: SPEC #: [id number] ANDREAS: 03/24/17 STATUS: RES REQ #: [id number] RECD: 03/24/170155 [facility] DR: Valente Castillo MD SOURCE: DRAIN-SURF ENTR: 03/24/17-[address]: Michael Leigh D.O. SPDESC: Huang Bertrand MD No Doctor, Medardo Lopez M.D. Patterson, Jennifer., D.O. Ridenour, Ryan, D.O. Gurram, Shwetha, MD ORDERED: SURF WND CU/SMR COMMENTS: Has Specimen Been Obtained/Collected? Y Procedure Result Verified Site GRAM STAIN Final 03/24/17-699 RESULT MODERATE EPITHELIAL CELLS MANY WBCs SEEN MODERATE GRAM POSITIVE BACILLI FEW GRAM POSITIVE COCCI SURFACE WOUND CULTURE Preliminary 03/25/17-1140 Organism 1 GRAM NEGATIVE BACILLI QUANITY MODERATE SENS SENSITIVITY TO FOLLOW +MIXWOUND PLUS LOW COUNTS OF PROBABLE SKIN HARMONY END OF REPORT Last 24 Hours Test 03/24/17 16:55 03/24/17 20:58 03/25/17 07:18 03/25/17 08:04 Bedside Glucose 111 mg/dl 216 mg/dl 154 mg/dl White Blood Count 8.93 K/uL Red Blood Count 4.16 M/uL Hemoglobin 12.3 g/dL Hematocrit 37.0 % Mean Corpuscular Volume 88.9 fL Mean Corpuscular Hemoglobin 29.6 pg Mean Corpuscular Hemoglobin Concent 33.2 g/dl RDW Standard Deviation 49.0 fL RDW Coefficient of Variation 15.0 % Platelet Count 257 K/uL Mean Platelet Volume 10.9 fL Creatinine 0.63 mg/dl Est Creatinine Clear Calc Drug Dose 175.6 ml/min Estimated GFR () 129.1 Estimated GFR (Non- 111.4 Test 03/25/17 11:57 Bedside Glucose 155 mg/dl Assessment and Plan 41-year-old female with history of recurrent lower extremity cellulitis, now with lower quadrant and groin cellulitis with superficial draining abscess. Patient appears to be improving on current antibiotics, and will continue patient on daptomycin and Zosyn pending final culture results and identification of gram-negative. Length of IV antibiotics will be determined by her clinical response. We will continue to follow.
[2017-03-25 14:45] VITALS: BP 174/91; PULSE 86; TEMP 36.5; O2SAT 91
[2017-03-25 15:11] VITALS: BP 155/90
[2017-03-25 22:55] VITALS: BP 159/98; PULSE 85; TEMP 36.6; O2SAT 90
[2017-03-26] MEDS: HEPARIN SOD 5000 UNIT/0.5 ML CARP SQ SCH ×3 (05:47→21:56)
--- NOTE | 2017-03-26 07:01 | Discharge Instructions ---
Discharge Instructions Date of Service Mar 26, 2017. Admission Reason for Admission: Abdominal Wall Cellulitis Discharge Discharge Diagnosis / Problem: Cellulitis Discharge Goals Goal(s): Decrease discomfort Activity Recommendations Activity Limitations: resume your previous activity . Instructions / Follow-Up Instructions / Follow-Up You presented to [facility] with pain on the right side of your abdomen, which was red , warm and tender to touch. You CT scan showed cellulitis of your abdominal wall , and therefore you were treated with three IV antibiotics - zosyn, clindamycin and daptomycin, as per the infectious diseases team. The surgical team also saw you, but luckily because you had started draining spontaneously, they did not need to perform any procedures. The fluid that you drained was sent for culture and now that we have the results, we can discharge you home on a course of oral antibiotics. During your time in the hospital, you were also diagnosed with type 2 Diabetes Mellitus which is when the organs in your body develop a resistance to insulin, and therefore cannot process sugar normally. In the hospital, we had you on insulin, however on discharge, we would rather begin management of your Diabetes with lifestyle changes including diet and exercise, to hopefully manage your disease so well that you don't even need medications! Please follow up with your primary care provider about making these lifestyle changes, as they will work together with you to create a diet & exercise plan. Current Hospital Diet Patient's current hospital diet: Diabetes Type 2 Diet Discharge Diet Recommended Diet: Diabetes Type 2 Diet Pending Studies Studies pending at discharge: no Laboratory Results Hemoglobin A1c Test 03/21/17 23:30 Range/Units Estimated Average Glucose 154 mg/dl Hemoglobin A1c 7.0 H 4.5-5.6 % Medical Emergencies . Who to Call and When: Medical Emergencies: If at any time you feel your situation is an emergency, please call 911 immediately. . Non-Emergent Contact Non-Emergency issues call your: Primary Care Provider . . "Provider Documentation" section prepared by Jakob Anguiano. . VTE Core Measure Inpt VTE Proph given/why not?: Unfractionated heparin SQ, SCD's
--- NOTE | 2017-03-26 07:11 | Discharge Summary ---
Discharge Summary Date of Service Mar 26, 2017. Discharge Summary Admission Date: Mar 22, 2017 at 03:15 Discharge Date: Mar 26, 2017 Discharge Disposition: Home Principal Diagnosis: Abdominal Wall Cellulitis Hospital Course Ms. Bhatt, a 41 year old female with no past medical problems, presented to [facility] with right sided abdominal pain, nausea and weakness. Upon examination, her abdomen was erythematous, warm and tender to touch. Her CT scan showed lower abdominal wall skin thickening & infiltration of the subcutaneous fat, as well as the presence of gas, which confirmed a gas-forming cellulitis and she was treated with IV zosyn, clindamycin and daptomycin as per ID. Gen surg was also consulted, however due to the fact that she began spontaneously draining, they did not need to perform an I/D. She improved clinically, her white cell count dropped back to normal, and her abdomen became less erythematous and tender. She was discharged home on a course of oral antibiotics. She was also diagnosed with Diabetes Mellitus Type 2, with an HbA1c of 7. During her time in the hospital, we discussed lifestyle changes such as diet and exercise for her, and are hoping to manage her diabetes in the outpatient setting with diet and exercise before we turn to oral hypoglycemic agents. She will be following up with her PCP regularly to make these changes. There was also concern that she may have DVT as she exhibited bilateral leg edema, however she states that this is normal for her, and her doppler US were negative. This will likely improve with diet and exercise as well. Total Time Spent: Less than 30 minutes This includes examination of the patient, discharge planning, medication reconciliation, and communication with other providers. Discharge Instructions Please refer to the electronic Patient Visit Report (Discharge Instructions) for additional information. Additional Copies To Jakob Anguiano M.D.
[2017-03-26] MEDS: PIPERACILL/TAZOBAC IV 4.5 GM in DEXTROSE 5% 100ML 100 ML IV SCH ×2 (07:46→15:31)
[2017-03-26] MEDS: ACETAMINOPHEN 325 MG TAB PO PRN (07:46)
[2017-03-26 08:11] VITALS: BP 148/90; PULSE 82; TEMP 36.9; O2SAT 94
[2017-03-26 08:13] VITALS: O2SAT 94
[2017-03-26] MEDS: LACTOBACILLUS ACIDOPHILUS (FLORANEX) TAB PO SCH ×3 (08:44→18:16)
[2017-03-26] MEDS: INSULIN ASPART 100 UNITS/ML 3 ML PEN SC SCH ×4 (08:46→20:54)
[2017-03-26] MEDS: DAPTOmycin IV 900 MG in SODIUM CHLORIDE 0.9% 50ML 50 ML IV SCH (11:56)
--- NOTE | 2017-03-26 13:07 | DIAGNOSTIC IMAGING REPORT ---
ABD/PELVIS WITHOUT FOR STONE CLINICAL HISTORY: 41 years-old Female presenting with not for stone, please compare soft tissue swelling and gas prev. TECHNIQUE: Multidetector CT of the abdomen and pelvis was performed without the use of intravenous contrast. IV contrast: None. A dose lowering technique was used consistent with the principles of ALARA (as low as reasonably achievable). COMPARISON: 03/23/2017. CT DOSE (mGy.cm): The estimated cumulative dose is 1869.73 mGy.cm. FINDINGS: [employer] topogram: Unremarkable. Lung bases: Groundglass opacities and dependent changes at the lung bases, likely atelectasis. Mild multichamber enlargement of the heart. No pericardial pleural effusion. Liver: Normal morphology. Borderline hepatic steatosis. Otherwise normal noncontrast appearance. Biliary: No gross evidence of biliary ductal dilatation allowing for noncontrast technique. Normal gallbladder. Pancreas: Normal. Spleen: Normal. Adrenal glands: Normal. Kidneys and ureters: No nephrolithiasis. No hydronephrosis. Gastrointestinal tract: Normal. No bowel obstruction. Peritoneal cavity: No free fluid or intraperitoneal gas. Bladder: Incompletely evaluated secondary to underdistention. Pelvic organs: Uterus and ovaries normal. Vasculature: Normal noncontrast appearance. Lymph nodes: Multiple prominent lymph nodes in the bronwyn hepatis and portacaval regions as well as the retroperitoneum and right inguinal region, nonspecific. Abdominal wall: Persistent soft tissue emphysema in the subcutaneous tissue of the pannus and right lower quadrant associated with subcutaneous fat infiltration. This is overall increased in extent superiorly now extending along the bilateral anterior abdominal wall into the mid abdomen. Overlying skin thickening most prominent in the lower abdomen. No focal fluid collection. Musculoskeletal: Normal. IMPRESSION: 1. Slight interval increase in inflammatory change in the subcutaneous tissue of anterior abdominal wall with associated soft tissue emphysema and skin thickening. This remains concerning for cellulitis/infection, necrotizing fasciitis not excluded. Correlate clinically. No associated abscess. 2. Likely reactive lymphadenopathy. The report will be called/faxed according to standard departmental protocol. Electronically signed by: Saud Tapia M.D. 03/26/2017 1:06 PM Dictated Date/Time: 03/26/2017 12:58 PM
--- NOTE | 2017-03-26 13:50 | Family Medicine Progress Note ---
Progress Note Date of Service Mar 26, 2017. Subjective Pt evaluation today including: conversation w/ patient, physical exam, chart review, lab review, review of inpatient medication list Pain: Minimal pain reported PO Intake: Tolerating PO intake Voiding: no voiding problems Mr. Bahtt reports that she feels well today, aside from a headache that she had when she awoke. She states that she often has headaches when she wakes up due to the position she sleeps in. The headache was relieved by a Tylenol and has not recurred since. She reports her pain is improved with regards to her cellulitis but that she feels a sense of discomfort and heaviness in her lower abdominal area. Constitutional: No fever, No chills, No sweats, No weight loss Respiratory: No cough, No sputum, No wheezing, No shortness of breath Cardiovascular: No chest pain, No orthopnea, No PND, No edema, No claudication Abdomen: + pain (discomfort moreso than pain), No nausea, No vomiting, No diarrhea, No constipation All Other Systems: Reviewed and Negative Medications Current Inpatient Medications Medications (Trade) Dose Ordered Sig/[place] Route Start Time Stop Time Status Last Admin Dose Admin Acetaminophen (Tylenol Tab) 650 mg Q4H PRN PO 03/22/17 03:15 04/21/17 03:14 03/26/17 07:46 650 MG Polyethylene (Miralax Powder Packet) 17 gm DAILY PRN PO 03/22/17 03:15 04/21/17 03:14 Ondansetron HCl (Zofran Inj) 4 mg Q6H PRN IV 03/22/17 03:15 04/21/17 03:14 03/25/17 18:08 4 MG Piperacillin Sod/ Tazobactam Sod 4.5 gm/Dextrose 120 ml @ 30 mls/hr Q8H IV 03/22/17 08:00 04/01/17 07:59 03/26/17 07:46 30 MLS/HR Lactobacillus Acidophilus (Floranex Tab) 4 tab TIDM PO 03/22/17 08:00 04/21/17 07:59 03/26/17 12:41 4 TAB Heparin Sodium (Porcine) (Heparin Sq 5000 Unit/0.5ml) 5,000 unit Q8H SQ 03/22/17 06:00 04/21/17 05:59 03/26/17 05:47 5,000 UNIT Insulin Aspart (novoLOG ASPART) SLIDING SCALE G... ACHS SC 03/22/17 07:00 04/21/17 06:59 03/26/17 08:46 1 UNITS Piperacillin Sod/ Tazobactam Sod (Consult) 1 ea UD PRN N/A 03/22/17 05:30 04/21/17 05:29 Glucose (Glucose 40% Gel) 15-30 GRAMS 15 GRAMS... UD PRN PO 03/22/17 05:45 04/21/17 05:44 Glucose (Glucose Chew Tab) 4-8 Tablets 4 Tabl... UD PRN PO 03/22/17 05:45 04/21/17 05:44 Dextrose (Dextrose 50% 50ML Syringe) 25-50ML OF 50% DW IV FOR... UD PRN IV 03/22/17 05:45 04/21/17 05:44 Glucagon (Glucagon Inj) 1 mg UD PRN SQ 03/22/17 05:45 04/21/17 05:44 Daptomycin 900 mg/ Sodium Chloride 68 ml @ 100 mls/hr Q24H IV 03/22/17 12:00 04/01/17 11:59 03/26/17 11:56 100 MLS/HR Ioversol (Optiray 320) 125 ml UD PRN IV 03/23/17 11:30 03/27/17 11:29 Ketorolac Tromethamine (Toradol Inj) 30 mg Q6H PRN IV 03/23/17 19:00 03/28/17 18:59 03/23/17 22:15 30 MG Objective Vital Signs Date Time Temp Pulse Resp B/P (MAP) Pulse Ox O2 Delivery O2 Flow Rate FiO2 03/26/17 08:13 94 Room Air 03/26/17 08:11 36.9 82 16 148/90 (109) 94 Room Air 03/26/17 07:30 Room Air 03/25/17 23:15 Room Air 03/25/17 22:55 36.6 85 18 159/98 (118) 90 Room Air 03/25/17 15:30 Room Air 03/25/17 15:11 155/90 (111) 03/25/17 14:45 36.5 86 18 174/91 (118) 91 Room Air Physical Exam General Appearance: WD/WN, no apparent distress Respiratory/Chest: chest non-tender, lungs clear, normal breath sounds, no respiratory distress, no accessory muscle use Cardiovascular: regular rate, rhythm, no gallop, no JVD, no murmur, + pertinent finding (bilateral lower limb edema, open sore on R calf - draining clear fluid) Abdomen: normal bowel sounds, no organomegaly, no pulsatile mass, + pertinent finding (erythematous lesion extending from RLQ to left side - warm and hard to touch) Extremities: + calf tenderness (calves are mildly tender to palpation) Neurologic/Psychiatric: alert, normal mood/affect, oriented x 3 Laboratory Results Test 03/26/17 11:56 Bedside Glucose 130 mg/dl (70-90) Assessment and Plan 41 year old female with hx of 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 No abscess detected - wound culture positive for proteus mirabilis. Will d/c based on sensitivities once her clinical picture improves - likely a ten day course of Levaquin 500mg BID to cover for a microbial infection as her wound culture was taken a few days after beginning abx - Continue Zosyn, clindamycin and Daptomycin Left lower extremity swelling: - likely due to venous stasis as longstanding, with negative doppler US - today she has an open sore on her right calf that is draining clear fluid. She states that this happens often - will likely improve with diet & weight loss plan Diabetes Mellitus Type 2 - Continue sliding scale insulin (range: 100-130 with correction factor of 30) - Glucose today - 130, well controlled - Hemoglobin A1c 7 - Dr. Bañuelos had a long discussion with her today about the benefits of lifestyle management for diabetes, as well as how to check her sugar levels at home to ensure she is avoiding foods that will spike her blood sugar levels - will f/u in clinic regarding lifestyle changes for managing diabetes VTE Prophylaxis - Heparin SQ Q8H Code - Full Disposition - remains on med/surg Resident Physician Supervision Note: I interviewed and examined the patient. Discussed with Dr. Anguiano and agree with findings and plan as documented in the note. Any exceptions or clarifications are listed here: None Documented By: Khanh Bañuelos feeling better but belly a bit more sore and redness a little bigger. no new fevers. all other ROS otherwise negative except for as above vtials noted nad abdominal erythema extended across to L now but less tender no crepitis and no fluctuance abdominal wall cellulitis - clinically overall improved, but area of erythema was bigger today - CT shows less gas but more area of inflammation. ?just tracking across facial plains from inflammatory fluid rather than true infeciton - continue to follow, continue IV abx for now othewrise as above Resident Tracking Resident Involvement: Resident Care Provided Care Provided: Adult Hospital Medicine
[2017-03-26 16:40] VITALS: BP 135/91; PULSE 71; TEMP 36.6; O2SAT 90
--- NOTE | 2017-03-26 16:44 | Surgery Progress Note ---
Surgery Progress Note Date of Service Mar 26, 2017. Subjective pt feeling ok though now has some pain in left side of pannus which is new. overall she feels better. wbc normal. Objective Vital Signs: Date Time Temp Pulse Resp B/P (MAP) Pulse Ox O2 Delivery O2 Flow Rate FiO2 03/26/17 08:13 94 Room Air 03/26/17 08:11 36.9 82 16 148/90 (109) 94 Room Air 03/26/17 07:30 Room Air 03/25/17 23:15 Room Air 03/25/17 22:55 36.6 85 18 159/98 (118) 90 Room Air General Appearance: no apparent distress Head: normocephalic, atraumatic Respiratory/Chest: no respiratory distress, no accessory muscle use Abdomen: + pertinent finding (still with diffuse erythema of her pannus. clinically no palpable abcess although with her body habitus and obesity it would be very hard to detect. ) Extremities: + pedal edema, + swelling Laboratory Results: Results Past 24 Hours Test 03/25/17 17:00 03/25/17 20:28 03/26/17 07:57 03/26/17 11:56 Range/Units Bedside Glucose 122 142 151 130 70-90 mg/dl Assessment & Plan 03/26/17 doing ok/cultures back/ID managing antibiotics still with cellulitis ct today continues to show no fluid that is drainable will continue to follow as long as pt is in hospital 03/25/17 pt clinically improving continue IV antibiotics per ID cultures still pending. will continue to follow along. 03/24/17 ct showed no fluid however she started draining overnight. it is unclear to me clinically where the fluid collection is for now, she is feeling better. will do local wound care. fluid cultured. continue IV antibiotics fluid draining nicely on it's own for now. will continue to follow along. may need formal I&D however for now it is unclear where I would make the incision and she might improve now with spontaneous drainage. 03/23/17 clinically doing ok. wbc still 13,[address] scan tomorrow to evaluate for developing fluid collection cont iv antibiotics 03/25/17 pt clinically improving continue IV antibiotics per ID cultures still pending. will continue to follow along. 03/24/17 ct showed no fluid however she started draining overnight. it is unclear to me clinically where the fluid collection is for now, she is feeling better. will do local wound care. fluid cultured. continue IV antibiotics fluid draining nicely on it's own for now. will continue to follow along. may need formal I&D however for now it is unclear where I would make the incision and she might improve now with spontaneous drainage. 03/23/17 clinically doing ok. wbc still 13,[address] scan tomorrow to evaluate for developing fluid collection cont iv antibiotics
[2017-03-26] MEDS: CLOTRIMAZOLE VAG CR 45 GM TUBE PV SCH (20:52)
[2017-03-26 22:50] VITALS: BP 140/85; PULSE 97; TEMP 36.3; O2SAT 92
[2017-03-27] VITALS (13 sets, daily range): BP systolic 112–165; BP diastolic 73–103; PULSE 79–120; TEMP 36.4–37.2; O2SAT 84–100
[2017-03-27] MEDS: PIPERACILL/TAZOBAC IV 4.5 GM in DEXTROSE 5% 100ML 100 ML IV SCH ×4 (00:07→23:43)
[2017-03-27] MEDS: KETOROLAC TROMETHAMINE 30 MG/ML VIAL IV PRN (00:07)
[2017-03-27] MEDS: ONDANSETRON INJ 2 MG/ML 2 ML VIAL IV PRN ×3 (00:16→16:28)
[2017-03-27] MEDS ORDERED: OPTIRAY 320 IV PRN (04:15)
[2017-03-27] MEDS ORDERED: HEPARIN IV BOLUS 4,000 UNIT in SYRINGE 0 ML IV ONE (04:30)
[2017-03-27] MEDS ORDERED: HEPARIN 25000 UNIT/ D5W 500 ML (PHARMACY PREPARED) IV PRN ×2 (04:30)
[2017-03-27] MEDS ORDERED: ALBUT/IPRATROP 3MG/0.5MG NEB 3 ML VIAL INH STA (04:34)
[2017-03-27 04:59] LABS: BASO % 0.1 %; BASO ABS # 0.01 K/uL (0-0.2); EOS % 1.5 %; IG% 1.2 %; LYMPH % 12.6 %; LYMPH ABS # 1.17 K/uL (1.2-3.4); MEAN CELL VOLUME 90.1 fL (80-100); MEAN CORPUSCULAR HEMOGLOBIN 28.4 pg (25-34); MEAN PLATELET VOLUME 10.5 fL (7.4-10.4); MONO % 4.8 %; NEUT % 79.8 %; PLATELET COUNT 273 K/uL (130-400); RED BLOOD COUNT 4.33 M/uL (4.2-5.4); WHITE BLOOD COUNT 9.28 K/uL (4.8-10.8)
--- NOTE | 2017-03-27 04:59 | Progress Note ---
Progress Note Date of Service Mar 27, 2017. Progress Note Called by RN as patient having desaturations and woke up feeling more short of breath. She appeared confused and generalized weakness. O2 sats in 80's so she was placed on 4L O2 nasal cannula. When seen patient was in the chair sitting up and feeling short of breath and nauseous. Zofran 4mg IV verbally ordered. Denies any chest pain. She notes a history of DVT after A: patent, no stridor, trachea central B: RR 30, O2 sats 86-88% on 4L nasal cannula. Using accessory muscles, Lungs clear C: HS 1+2 no murmurs, quiet due to body habitus, HR 120 BP 112//81 Cap refill < 2s, UO - not recorded D: Alert, BSG. BSG 224 E: Abdominal wall extensive cellulitis without subcutaneous emphysema, left leg circumference > right (not acute), previous leg doppler noted negative for DVT although sub optimal views noted. Assessment Acute hypoxic respiratory failure Concerning is her history for DVT with sudden onset tachycardia and hypoxia, although she has been getting heparin SQ as VTE prophylaxis. She may also have undiagnosed sleep apnea on top of porr inspiratory effort due to abdominal cellulitis although this did not happen the previous night. Plan CXR - if nothing to explain acute hypoxia will get CT for PE start heparin IV drip now (can be stopped if CT for PE negative) Repeat labs including troponin O2 aim > 94% Transfer to telemetry
[2017-03-27] MEDS ORDERED: HEPARIN IV BOLUS 8,000 UNIT in SYRINGE 0 ML IV ONE (05:00)
[2017-03-27 05:02] LABS: COMPLETE YES; MEAN CORPUSCULAR HGB CONC 31.5 g/dl (32-36)
[2017-03-27 05:09] LABS: INR 0.9 (0.9-1.1); PARTIAL THROMBOPLASTIN RATIO 0.8
[2017-03-27 05:26] LABS: ALB/GLOB RATIO 0.5 (0.9-2); BUN/CREATININE RATIO 13.9 (10-20); CALCIUM 8.2 mg/dl (8.5-10.1); CREATININE 0.67 mg/dl (0.60-1.20); POTASSIUM 3.8 mmol/L (3.5-5.1)
[2017-03-27] MEDS ORDERED: FUROSEMIDE 40 MG/4 ML VIAL IV ONE (05:30)
[2017-03-27 06:01] LABS: ARTERIAL BLOOD GAS BASE EXCESS -0.6 mEq/L (-9-1.8); ARTERIAL BLOOD GAS HCO3 25 mmol/L (19-24); ARTERIAL BLOOD GAS PO2 150 mm/Hg (80-95); ARTERIAL BLOOD GAS pH 7.35 (7.35-7.45)
[2017-03-27 06:05] LABS: ALLEN TEST POS (POS); O2 ADMINISTRATION 10L
--- NOTE | 2017-03-27 06:25 | DIAGNOSTIC IMAGING REPORT ---
(CHEST FOR PE) ANGIO WITH CT DOSE: 824.04 mGy.cm HISTORY: Chest pain dyspnea TECHNIQUE: Multiaxial CT images of the chest were performed following the intravenous administration of contrast to evaluate the pulmonary arteries. Maximal intensity projection images were also obtained. A dose lowering technique was utilized adhering to the principles of ALARA. COMPARISON STUDY: None. FINDINGS: There is a normal caliber thoracic aorta with no evidence for dissection. There is no evidence for pulmonary embolus. No pleural effusions. No pneumothorax. The liver and spleen are unremarkable. No mediastinal or hilar lymphadenopathy. The central airways are patent. The lungs are clear. Mild bibasilar atelectasis. IMPRESSION: No evidence for pulmonary embolus. Mild bibasilar atelectasis. The above report was generated using voice recognition software. It may contain grammatical, syntax or spelling errors. Electronically signed by: Quan Ontiveros M.D. 03/27/2017 6:23 AM Dictated Date/Time: 03/27/2017 6:22 AM
--- NOTE | 2017-03-27 07:09 | DIAGNOSTIC IMAGING REPORT ---
CHEST ONE VIEW PORTABLE CLINICAL HISTORY: 41 years-old Female presenting with desaturations, sudden shortness of breath. TECHNIQUE: Portable upright AP view of the chest was obtained. COMPARISON: 03/21/2017. FINDINGS: Image quality degraded by patient body habitus. 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 Mildly low lung volumes decreased from prior with hypoventilatory changes. Diffusely increased density of both lungs. No large pleural effusion or pneumothorax. Osseous structures and upper abdomen grossly normal. IMPRESSION: 1. Degraded examination secondary to body habitus. Mildly low lung volumes with hypoventilatory changes. Diffusely increased density of both lungs could be artifactual. If there is continuing clinical concern PA and lateral views should be obtained. Electronically signed by: Saud Tapia M.D. 03/27/2017 7:08 AM Dictated Date/Time: 03/27/2017 7:06 AM
[2017-03-27] MEDS: ACETAMINOPHEN 325 MG TAB PO PRN (07:41)
[2017-03-27] MEDS: LACTOBACILLUS ACIDOPHILUS (FLORANEX) TAB PO SCH ×4 (07:41→18:21)
[2017-03-27] MEDS: INSULIN ASPART 100 UNITS/ML 3 ML PEN SC SCH ×5 (07:43→21:00)
--- NOTE | 2017-03-27 09:31 | Surgery Progress Note ---
Surgery Progress Note Date of Service Mar 27, 2017. Subjective + feeling well transferred to PCU last night for hypoxia Objective Vital Signs: Date Time Temp Pulse Resp B/P (MAP) Pulse Ox O2 Delivery O2 Flow Rate FiO2 03/27/17 08:00 Room Air 03/27/17 07:38 36.5 100 18 139/86 (103) 92 Room Air 03/27/17 05:40 36.5 85 20 152/90 (110) 100 Oxymask 10.0 03/27/17 05:05 37.2 114 20 98 10.0 03/27/17 05:02 114 20 98 Diffusion Mask 10.0 03/27/17 04:48 99 20 134/80 (98) 99 03/27/17 04:38 37.2 03/27/17 03:45 109 89 Nasal Cannula 2.0 03/27/17 03:40 36.5 120 30 112/81 (91) 84 Room Air 03/26/17 23:45 Room Air 03/26/17 22:50 36.3 97 16 140/85 (103) 92 Room Air 03/26/17 16:40 36.6 71 18 135/91 (106) 90 Room Air 03/26/17 15:45 Room Air Abdomen: + pertinent finding (remains erythematous) Laboratory Results: Results Past 24 Hours Test 03/26/17 11:56 03/26/17 17:30 03/26/17 20:48 03/27/17 04:45 Range/Units Bedside Glucose 130 100 180 70-90 mg/dl Sodium Level 140 136-145 mmol/L Potassium Level 3.8 3.5-5.1 mmol/L Chloride Level 105 98-107 mmol/L Carbon Dioxide Level 29 21-32 mmol/L Anion Gap 6.0 3-11 mmol/L Blood Urea Nitrogen 9 7-18 mg/dl Creatinine 0.67 0.60-1.20 mg/dl Est Creatinine Clear Calc Drug Dose 165.1 ml/min Estimated GFR () 126.5 Estimated GFR (Non- 109.2 BUN/Creatinine Ratio 13.9 10-20 Random Glucose 247 70-99 mg/dl Calcium Level 8.2 8.5-10.1 mg/dl Total Bilirubin 0.2 0.2-1 mg/dl Aspartate Amino Transf (AST/SGOT) 33 15-37 U/L Alanine Aminotransferase (ALT/SGPT) 50 12-78 U/L Alkaline Phosphatase 82 45-117 U/L Troponin I < 0.015 0-0.045 ng/ml Total Protein 6.4 6.4-8.2 gm/dl Albumin 2.2 3.4-5.0 gm/dl Globulin 4.2 2.5-4.0 gm/dl Albumin/Globulin Ratio 0.5 0.9-2 Test 03/27/17 04:46 03/27/17 05:35 03/27/17 06:51 Range/Units White Blood Count 9.28 4.8-10.8 K/uL Red Blood Count 4.33 4.2-5.4 M/uL Hemoglobin 12.3 12.0-16.0 g/dL Hematocrit 39.0 37-47 % Mean Corpuscular Volume 90.1 80-100 fL Mean Corpuscular Hemoglobin 28.4 25-34 pg Mean Corpuscular Hemoglobin Concent 31.5 32-36 g/dl Platelet Count 273 130-400 K/uL Mean Platelet Volume 10.5 7.4-10.4 fL Neutrophils (%) (Auto) 79.8 % Lymphocytes (%) (Auto) 12.6 % Monocytes (%) (Auto) 4.8 % Eosinophils (%) (Auto) 1.5 % Basophils (%) (Auto) 0.1 % Neutrophils # (Auto) 7.40 1.4-6.5 K/uL Lymphocytes # (Auto) 1.17 1.2-3.4 K/uL Monocytes # (Auto) 0.45 0.11-0.59 K/uL Eosinophils # (Auto) 0.14 0-0.5 K/uL Basophils # (Auto) 0.01 0-0.2 K/uL RDW Standard Deviation 48.9 36.4-46.3 fL RDW Coefficient of Variation 14.8 11.5-14.5 % Immature Granulocyte % (Auto) 1.2 % Immature Granulocyte # (Auto) 0.11 0.00-0.02 K/uL Prothrombin Time 10.0 9.0-12.0 SECONDS Prothromb Time International Ratio 0.9 0.9-1.1 Activated Partial Thromboplast Time 20.5 21.0-31.0 SECONDS Partial Thromboplastin Ratio 0.8 Lactic Acid Level 1.4 0.4-2.0 mmol/L Arterial Blood pH 7.35 7.35-7.45 Arterial Blood Partial Pressure CO2 47 35-46 mmHg Arterial Blood Partial Pressure O2 150 80-95 mm/Hg Arterial Blood HCO3 25 19-24 mmol/L Arterial Blood Oxygen Saturation 99.0 90-95 % Arterial Blood Base Excess -0.6 -9-1.8 mEq/L Arterial Blood Gas Delivery 10L Lyle Test POS POS Bedside Glucose 182 70-90 mg/dl Assessment & Plan cellulitis/panniculitis remains similar, no significant change in CT continue antibiotics as planned as above. pt seen. cellulitis appears unchanged though she states she feels better than yesterday/ less pain. no fluid to drain on CT will continue to follow though not much to add from surgical perspective
[2017-03-27] MEDS: DAPTOmycin IV 900 MG in SODIUM CHLORIDE 0.9% 50ML 50 ML IV SCH (12:40)
--- NOTE | 2017-03-27 17:09 | Infectious Disease Progress Nt ---
Progress Note Date of Service Mar 27, 2017. Subjective Pt evaluation today including: conversation w/ patient, physical exam, chart review, lab review, review of studies, conversation w/ senior clinical consultant, review of inpatient medication list Still with some discomfort in her lower abdomen. Remains afebrile. No other new complaints. Appears to be tolerating antibiotics without apparent difficulty. All Other Systems: Reviewed and Negative Medications Current Inpatient Medications Medications (Trade) Dose Ordered Sig/Everett Route Start Time Stop Time Status Last Admin Dose Admin Acetaminophen (Tylenol Tab) 650 mg Q4H PRN PO 03/22/17 03:15 04/21/17 03:14 03/27/17 07:41 650 MG Polyethylene (Miralax Powder Packet) 17 gm DAILY PRN PO 03/22/17 03:15 04/21/17 03:14 Ondansetron HCl (Zofran Inj) 4 mg Q6H PRN IV 03/22/17 03:15 04/21/17 03:14 03/27/17 16:28 4 MG Piperacillin Sod/ Tazobactam Sod 4.5 gm/Dextrose 120 ml @ 30 mls/hr Q8H IV 03/22/17 08:00 04/01/17 07:59 03/27/17 16:02 30 MLS/HR Lactobacillus Acidophilus (Floranex Tab) 4 tab TIDM PO 03/22/17 08:00 04/21/17 07:59 03/27/17 16:29 4 TAB Insulin Aspart (novoLOG ASPART) SLIDING SCALE G... ACHS SC 03/22/17 07:00 04/21/17 06:59 03/27/17 07:43 2 UNITS Piperacillin Sod/ Tazobactam Sod (Consult) 1 ea UD PRN N/A 03/22/17 05:30 04/21/17 05:29 Glucose (Glucose 40% Gel) 15-30 GRAMS 15 GRAMS... UD PRN PO 03/22/17 05:45 04/21/17 05:44 Glucose (Glucose Chew Tab) 4-8 Tablets 4 Tabl... UD PRN PO 03/22/17 05:45 04/21/17 05:44 Dextrose (Dextrose 50% 50ML Syringe) 25-50ML OF 50% DW IV FOR... UD PRN IV 03/22/17 05:45 04/21/17 05:44 Glucagon (Glucagon Inj) 1 mg UD PRN SQ 03/22/17 05:45 04/21/17 05:44 Ketorolac Tromethamine (Toradol Inj) 30 mg Q6H PRN IV 03/23/17 19:00 03/28/17 18:59 03/27/17 00:07 30 MG Clotrimazole (Clotrimazole Vag Crm) 1 appln HS PV 03/26/17 21:00 04/02/17 20:59 03/26/17 20:52 1 APPLN Ioversol (Optiray 320) 125 ml UD PRN IV 03/27/17 04:15 03/31/17 04:14 Objective Vital Signs Date Time Temp Pulse Resp B/P (MAP) Pulse Ox O2 Delivery O2 Flow Rate FiO2 03/27/17 15:22 36.7 79 22 165/82 (109) 91 Room Air 03/27/17 12:00 Room Air 03/27/17 11:14 36.4 81 20 129/73 (91) 95 Room Air 03/27/17 08:00 Room Air 03/27/17 07:38 36.5 100 18 139/86 (103) 92 Room Air 03/27/17 05:40 36.5 85 20 152/90 (110) 100 Oxymask 10.0 03/27/17 05:05 37.2 114 20 98 10.0 03/27/17 05:02 114 20 98 Diffusion Mask 10.0 03/27/17 04:48 99 20 134/80 (98) 99 03/27/17 04:38 37.2 03/27/17 03:45 109 89 Nasal Cannula 2.0 03/27/17 03:40 36.5 120 30 112/81 (91) 84 Room Air 03/26/17 23:45 Room Air 03/26/17 22:50 36.3 97 16 140/85 (103) 92 Room Air Physical Exam General Appearance: WD/WN, no apparent distress, + obese Eyes: normal inspection, sclerae normal ENT: normal ENT inspection, pharynx normal Neck: supple, no adenopathy, trachea midline Respiratory/Chest: chest non-tender, lungs clear, normal breath sounds, no respiratory distress Cardiovascular: regular rate, rhythm, no gallop, no murmur Abdomen: normal bowel sounds, soft, no organomegaly, + tenderness Extremities: non-tender, no calf tenderness Neurologic/Psychiatric: alert, oriented x 3 Skin: normal color, no rash, + pertinent finding (Erythema lower abdomen approximately the same) Lymphatic: no adenopathy Laboratory Results Last 24 Hours Test 03/26/17 17:30 03/26/17 20:48 03/27/17 04:45 03/27/17 04:46 Bedside Glucose 100 mg/dl 180 mg/dl Sodium Level 140 mmol/L Potassium Level 3.8 mmol/L Chloride Level 105 mmol/L Carbon Dioxide Level 29 mmol/L Anion Gap 6.0 mmol/L Blood Urea Nitrogen 9 mg/dl Creatinine 0.67 mg/dl Est Creatinine Clear Calc Drug Dose 165.1 ml/min Estimated GFR () 126.5 Estimated GFR (Non- 109.2 BUN/Creatinine Ratio 13.9 Random Glucose 247 mg/dl Calcium Level 8.2 mg/dl Total Bilirubin 0.2 mg/dl Aspartate Amino Transf (AST/SGOT) 33 U/L Alanine Aminotransferase (ALT/SGPT) 50 U/L Alkaline Phosphatase 82 U/L Troponin I < 0.015 ng/ml Total Protein 6.4 gm/dl Albumin 2.2 gm/dl Globulin 4.2 gm/dl Albumin/Globulin Ratio 0.5 White Blood Count 9.28 K/uL Red Blood Count 4.33 M/uL Hemoglobin 12.3 g/dL Hematocrit 39.0 % Mean Corpuscular Volume 90.1 fL Mean Corpuscular Hemoglobin 28.4 pg Mean Corpuscular Hemoglobin Concent 31.5 g/dl Platelet Count 273 K/uL Mean Platelet Volume 10.5 fL Neutrophils (%) (Auto) 79.8 % Lymphocytes (%) (Auto) 12.6 % Monocytes (%) (Auto) 4.8 % Eosinophils (%) (Auto) 1.5 % Basophils (%) (Auto) 0.1 % Neutrophils # (Auto) 7.40 K/uL Lymphocytes # (Auto) 1.17 K/uL Monocytes # (Auto) 0.45 K/uL Eosinophils # (Auto) 0.14 K/uL Basophils # (Auto) 0.01 K/uL RDW Standard Deviation 48.9 fL RDW Coefficient of Variation 14.8 % Immature Granulocyte % (Auto) 1.2 % Immature Granulocyte # (Auto) 0.11 K/uL Prothrombin Time 10.0 SECONDS Prothromb Time International Ratio 0.9 Activated Partial Thromboplast Time 20.5 SECONDS Partial Thromboplastin Ratio 0.8 Lactic Acid Level 1.4 mmol/L Test 03/27/17 05:35 03/27/17 06:51 03/27/17 11:18 03/27/17 16:02 Arterial Blood pH 7.35 Arterial Blood Partial Pressure CO2 47 mmHg Arterial Blood Partial Pressure O2 150 mm/Hg Arterial Blood HCO3 25 mmol/L Arterial Blood Oxygen Saturation 99.0 % Arterial Blood Base Excess -0.6 mEq/L Arterial Blood Gas Delivery 10L Lyle Test POS Bedside Glucose 182 mg/dl 119 mg/dl 97 mg/dl Assessment and Plan 41-year-old female with history of recurrent lower extremity cellulitis, now with lower quadrant and groin cellulitis with superficial draining abscess with P. mirabilis. Patient appears to be improving on current antibiotics, and will continue patient on Zosyn for now
--- NOTE | 2017-03-27 17:13 | Family Medicine Progress Note ---
Progress Note Date of Service Mar 27, 2017. Subjective Pt evaluation today including: conversation w/ patient, physical exam, chart review, lab review Pain: No pain reported PO Intake: Tolerating PO intake Voiding: no voiding problems Ms. Bhatt reports that the discomfort and heaviness across her abdomen has resolved. She states that the area has stopped draining. She feels well and denies chest pain, SOB, or syncopal episodes. Constitutional: No fever, No chills, No sweats, No weight loss Respiratory: No cough, No sputum, No wheezing, No shortness of breath Cardiovascular: + edema (bilateral chronic leg edema - left worse than right ), No chest pain, No orthopnea, No PND Abdomen: No pain, No nausea, No vomiting, No diarrhea All Other Systems: Reviewed and Negative Medications Current Inpatient Medications Medications (Trade) Dose Ordered Sig/Everett Route Start Time Stop Time Status Last Admin Dose Admin Acetaminophen (Tylenol Tab) 650 mg Q4H PRN PO 03/22/17 03:15 04/21/17 03:14 03/27/17 07:41 650 MG Polyethylene (Miralax Powder Packet) 17 gm DAILY PRN PO 03/22/17 03:15 04/21/17 03:14 Ondansetron HCl (Zofran Inj) 4 mg Q6H PRN IV 03/22/17 03:15 04/21/17 03:14 03/27/17 03:56 4 MG Piperacillin Sod/ Tazobactam Sod 4.5 gm/Dextrose 120 ml @ 30 mls/hr Q8H IV 03/22/17 08:00 04/01/17 07:59 03/27/17 09:10 30 MLS/HR Lactobacillus Acidophilus (Floranex Tab) 4 tab TIDM PO 03/22/17 08:00 04/21/17 07:59 03/27/17 12:40 4 TAB Insulin Aspart (novoLOG ASPART) SLIDING SCALE G... ACHS SC 03/22/17 07:00 04/21/17 06:59 03/27/17 07:43 2 UNITS Piperacillin Sod/ Tazobactam Sod (Consult) 1 ea UD PRN N/A 03/22/17 05:30 04/21/17 05:29 Glucose (Glucose 40% Gel) 15-30 GRAMS 15 GRAMS... UD PRN PO 03/22/17 05:45 04/21/17 05:44 Glucose (Glucose Chew Tab) 4-8 Tablets 4 Tabl... UD PRN PO 03/22/17 05:45 04/21/17 05:44 Dextrose (Dextrose 50% 50ML Syringe) 25-50ML OF 50% DW IV FOR... UD PRN IV 03/22/17 05:45 04/21/17 05:44 Glucagon (Glucagon Inj) 1 mg UD PRN SQ 03/22/17 05:45 04/21/17 05:44 Ketorolac Tromethamine (Toradol Inj) 30 mg Q6H PRN IV 03/23/17 19:00 03/28/17 18:59 03/27/17 00:07 30 MG Clotrimazole (Clotrimazole Vag Crm) 1 appln HS PV 03/26/17 21:00 04/02/17 20:59 03/26/17 20:52 1 APPLN Ioversol (Optiray 320) 125 ml UD PRN IV 03/27/17 04:15 03/31/17 04:14 Objective Vital Signs Date Time Temp Pulse Resp B/P (MAP) Pulse Ox O2 Delivery O2 Flow Rate FiO2 03/27/17 15:22 36.7 79 22 165/82 (109) 91 Room Air 03/27/17 12:00 Room Air 03/27/17 11:14 36.4 81 20 129/73 (91) 95 Room Air 03/27/17 08:00 Room Air 03/27/17 07:38 36.5 100 18 139/86 (103) 92 Room Air 03/27/17 05:40 36.5 85 20 152/90 (110) 100 Oxymask 10.0 03/27/17 05:05 37.2 114 20 98 10.0 03/27/17 05:02 114 20 98 Diffusion Mask 10.0 03/27/17 04:48 99 20 134/80 (98) 99 03/27/17 04:38 37.2 03/27/17 03:45 109 89 Nasal Cannula 2.0 03/27/17 03:40 36.5 120 30 112/81 (91) 84 Room Air 03/26/17 23:45 Room Air 03/26/17 22:50 36.3 97 16 140/85 (103) 92 Room Air 03/26/17 16:40 36.6 71 18 135/91 (106) 90 Room Air Physical Exam General Appearance: WD/WN, no apparent distress Respiratory/Chest: chest non-tender, lungs clear, normal breath sounds, no respiratory distress, no accessory muscle use Cardiovascular: regular rate, rhythm, no gallop, no JVD, no murmur, + pertinent finding (bilateral edema of both legs, left moreso than right. Left leg also appears reddened, and right leg has an open sore) Abdomen: normal bowel sounds, no organomegaly, no pulsatile mass, + pertinent finding (erythematous area extending from RLQ across to left - pale pink in color, skin is hardened ) Neurologic/Psychiatric: alert, normal mood/affect, oriented x 3 Laboratory Results 03/27/17 04:46 Red Blood Count 4.33, Mean Corpuscular Volume 90.1, Mean Corpuscular Hemoglobin 28.4, Mean Corpuscular Hemoglobin Concent 31.5, Mean Platelet Volume 10.5, Neutrophils (%) (Auto) 79.8, Lymphocytes (%) (Auto) 12.6, Monocytes (%) (Auto) 4.8, Eosinophils (%) (Auto) 1.5, Basophils (%) (Auto) 0.1, Neutrophils # (Auto) 7.40, Lymphocytes # (Auto) 1.17, Monocytes # (Auto) 0.45, Eosinophils # (Auto) 0.14, Basophils # (Auto) 0.01 03/27/17 04:45 Test 03/27/17 04:45 03/27/17 04:46 03/27/17 05:35 03/27/17 11:18 Anion Gap 6.0 mmol/L (3-11) Est Creatinine Clear Calc Drug Dose 165.1 ml/min Estimated GFR () 126.5 Estimated GFR (Non- 109.2 BUN/Creatinine Ratio 13.9 (10-20) Calcium Level 8.2 mg/dl (8.5-10.1) Total Bilirubin 0.2 mg/dl (0.2-1) Aspartate Amino Transf (AST/SGOT) 33 U/L (15-37) Alanine Aminotransferase (ALT/SGPT) 50 U/L (12-78) Alkaline Phosphatase 82 U/L (45-117) Troponin I < 0.015 ng/ml (0-0.045) Total Protein 6.4 gm/dl (6.4-8.2) Albumin 2.2 gm/dl (3.4-5.0) Globulin 4.2 gm/dl (2.5-4.0) Albumin/Globulin Ratio 0.5 (0.9-2) White Blood Count 9.28 K/uL (4.8-10.8) Red Blood Count 4.33 M/uL (4.2-5.4) Hemoglobin 12.3 g/dL (12.0-16.0) Hematocrit 39.0 % (37-47) Mean Corpuscular Volume 90.1 fL (80-100) Mean Corpuscular Hemoglobin 28.4 pg (25-34) Mean Corpuscular Hemoglobin Concent 31.5 g/dl (32-36) Platelet Count 273 K/uL (130-400) Mean Platelet Volume 10.5 fL (7.4-10.4) Neutrophils (%) (Auto) 79.8 % Lymphocytes (%) (Auto) 12.6 % Monocytes (%) (Auto) 4.8 % Eosinophils (%) (Auto) 1.5 % Basophils (%) (Auto) 0.1 % Neutrophils # (Auto) 7.40 K/uL (1.4-6.5) Lymphocytes # (Auto) 1.17 K/uL (1.2-3.4) Monocytes # (Auto) 0.45 K/uL (0.11-0.59) Eosinophils # (Auto) 0.14 K/uL (0-0.5) Basophils # (Auto) 0.01 K/uL (0-0.2) RDW Standard Deviation 48.9 fL (36.4-46.3) RDW Coefficient of Variation 14.8 % (11.5-14.5) Immature Granulocyte % (Auto) 1.2 % Immature Granulocyte # (Auto) 0.11 K/uL (0.00-0.02) Prothrombin Time 10.0 SECONDS (9.0-12.0) Prothromb Time International Ratio 0.9 (0.9-1.1) Activated Partial Thromboplast Time 20.5 SECONDS (21.0-31.0) Partial Thromboplastin Ratio 0.8 Lactic Acid Level 1.4 mmol/L (0.4-2.0) Arterial Blood pH 7.35 (7.35-7.45) Arterial Blood Partial Pressure CO2 47 mmHg (35-46) Arterial Blood Partial Pressure O2 150 mm/Hg (80-95) Arterial Blood HCO3 25 mmol/L (19-24) Arterial Blood Oxygen Saturation 99.0 % (90-95) Arterial Blood Base Excess -0.6 mEq/L (-9-1.8) Arterial Blood Gas Delivery 10L Lyle Test POS (POS) Bedside Glucose 119 mg/dl (70-90) Assessment and Plan 41 year old female with hx of recurrent cellulitis in legs presented with cellulitis of the abdominal wall Oxygen Desaturations - overnight, her oxygen sats dropped to the 80s and she was placed on O2 - CXR negative, CTPA negative - likely obstructive sleep apnea given hx of daytime drowsiness, body habitus, CO2 retention on AM ABG and nocturnal desaturations - will perform overnight pulse ox & early AM ABG to confirm - will need skilled nursing CPAP Abdominal Wall Cellulitis: - erythematous area looks pale pink, appears to have regressed from yesterday - wound culture positive for proteus mirabilis. Will d/c on ten days of Levaquin 500mg BID - Continue Zosyn, clindamycin and Daptomycin Left lower extremity swelling: - ?venous stasis as longstanding, with negative doppler US - will monitor erythematous left leg - likely worsening stasis due to being in the hospital for the past few days Diabetes Mellitus Type 2 - Continue sliding scale insulin (range: 100-130 with correction factor of 30) - will f/u in clinic regarding lifestyle changes for managing diabetes VTE Prophylaxis - Heparin SQ Q8H Code - Full Disposition - transfer back to med/surg as she is improving clinically Resident Physician Supervision Note: I interviewed and examined the patient. Discussed with Dr. Anguiano and agree with findings and plan as documented in the note. Any exceptions or clarifications are listed here: None Documented By: Khanh Bañuelos feeling better. no sob. all other ROS otherwise negative except for as above. explained SUKH vitals noted nad breathing unlabored no pallor or icterus abdominal wall cellulitis w sepsis -ongoing improvement, still unclear when will be truly safe to change to PO abx, but is improving DM - lifestyle change strongly probable SUKH - overnight pulse ox. with that and abg possibly can qualify for CPAP without sleep study. if not - outpt sleep study as soon as can be arranged. DVT proph - lovenox Resident Tracking Resident Involvement: Resident Care Provided Care Provided: Adult Hospital Medicine
[2017-03-27] MEDS: CLOTRIMAZOLE VAG CR 45 GM TUBE PV SCH (21:18)
[2017-03-28] MEDS: ONDANSETRON INJ 2 MG/ML 2 ML VIAL IV PRN ×2 (05:25→20:14)
[2017-03-28] MEDS: KETOROLAC TROMETHAMINE 30 MG/ML VIAL IV PRN (05:26)
[2017-03-28 06:37] LABS: MEAN CELL VOLUME 90.3 fL (80-100); MEAN CORPUSCULAR HEMOGLOBIN 29.1 pg (25-34); MEAN CORPUSCULAR HGB CONC 32.2 g/dl (32-36); MEAN PLATELET VOLUME 11.5 fL (7.4-10.4); PLATELET COUNT 264 K/uL (130-400); RED BLOOD COUNT 4.54 M/uL (4.2-5.4); WHITE BLOOD COUNT 10.43 K/uL (4.8-10.8)
[2017-03-28 06:47] LABS: PARTIAL THROMBOPLASTIN RATIO 0.9
[2017-03-28 07:19] VITALS: BP 125/78; PULSE 93; TEMP 36.8; O2SAT 92
[2017-03-28 07:30] VITALS: O2SAT 92
[2017-03-28] MEDS: PIPERACILL/TAZOBAC IV 4.5 GM in DEXTROSE 5% 100ML 100 ML IV SCH ×3 (08:00→23:42)
[2017-03-28] MEDS: ACETAMINOPHEN 325 MG TAB PO PRN (08:01)
[2017-03-28] MEDS: LACTOBACILLUS ACIDOPHILUS (FLORANEX) TAB PO SCH ×3 (08:03→20:14)
[2017-03-28] MEDS: INSULIN ASPART 100 UNITS/ML 3 ML PEN SC SCH ×4 (08:09→21:42)
[2017-03-28] MEDS: ENOXAPARIN 40 MG/0.4 ML SYR SQ SCH (09:38)
--- NOTE | 2017-03-28 09:45 | Surgery Progress Note ---
Surgery Progress Note Date of Service Mar 28, 2017. Subjective no new changes. still with pressure on her pannus. Objective Vital Signs: Date Time Temp Pulse Resp B/P (MAP) Pulse Ox O2 Delivery O2 Flow Rate FiO2 03/28/17 07:19 36.8 93 23 125/78 (94) 92 Nasal Cannula 2.0 03/27/17 23:39 Room Air 03/27/17 23:19 36.8 84 18 158/98 (118) 96 Room Air 03/27/17 22:18 36.8 82 18 145/103 (117) 94 Room Air 03/27/17 17:18 36.7 79 22 91 10.0 03/27/17 17:00 Room Air 03/27/17 16:00 Room Air 03/27/17 15:22 36.7 79 22 165/82 (109) 91 Room Air 03/27/17 12:00 Room Air 03/27/17 11:14 36.4 81 20 129/73 (91) 95 Room Air General Appearance: no apparent distress Head: atraumatic Respiratory/Chest: no respiratory distress, no accessory muscle use Abdomen: + pertinent finding (large pannus with erythema. not much change clinically. ) Laboratory Results: Results Past 24 Hours Test 03/27/17 11:18 03/27/17 16:02 03/27/17 20:35 03/28/17 06:17 Range/Units Bedside Glucose 119 97 118 70-90 mg/dl White Blood Count 10.43 4.8-10.8 K/uL Red Blood Count 4.54 4.2-5.4 M/uL Hemoglobin 13.2 12.0-16.0 g/dL Hematocrit 41.0 37-47 % Mean Corpuscular Volume 90.3 80-100 fL Mean Corpuscular Hemoglobin 29.1 25-34 pg Mean Corpuscular Hemoglobin Concent 32.2 32-36 g/dl RDW Standard Deviation 49.3 36.4-46.3 fL RDW Coefficient of Variation 14.8 11.5-14.5 % Platelet Count 264 130-400 K/uL Mean Platelet Volume 11.5 7.4-10.4 fL Activated Partial Thromboplast Time 23.6 21.0-31.0 SECONDS Partial Thromboplastin Ratio 0.9 Test 03/28/17 07:51 Range/Units Bedside Glucose 132 70-90 mg/dl Assessment & Plan 03/28/17 continue current care antibiotics per ID still a chance that this will develop into an abcess/fluid so we will continue to follow along until discharge. 03/27/17 cellulitis/panniculitis remains similar, no significant change in CT continue antibiotics as planned as above. pt seen. cellulitis appears unchanged though she states she feels better than yesterday/ less pain. no fluid to drain on CT will continue to follow though not much to add from surgical perspective cellulitis/panniculitis remains similar, no significant change in CT continue antibiotics as planned as above. pt seen. cellulitis appears unchanged though she states she feels better than yesterday/ less pain. no fluid to drain on CT will continue to follow though not much to add from surgical perspective
[2017-03-28] MEDS ORDERED: NURSING VERBAL MED ORDER SCH (10:30)
--- NOTE | 2017-03-28 11:50 | Family Medicine Progress Note ---
Progress Note Date of Service Mar 28, 2017. Subjective Pt evaluation today including: conversation w/ patient, physical exam, chart review, lab review, review of inpatient medication list Pain: No pain reported PO Intake: Tolerating PO intake Voiding: no voiding problems Ms. Bhatt reports that she feels well today. She states that there was some more draining of her cellulitis, but that it is currently dry. She reports a headache upon waking, but that she often has these and they resolve as the day goes on. She states that her left leg is no longer as erythematous as before and she feels it is improving. She has, however, developed a yeast infection and has been prescribed cream for that. Constitutional: No fever, No chills, No sweats Respiratory: No cough, No sputum, No wheezing, No shortness of breath Cardiovascular: + edema (bilateral edema of lower limbs, left worse than right), No chest pain, No orthopnea, No PND Abdomen: No pain, No nausea, No vomiting, No diarrhea Female : + problem reported (yeast infection) All Other Systems: Reviewed and Negative Medications Current Inpatient Medications Medications (Trade) Dose Ordered Sig/Everett Route Start Time Stop Time Status Last Admin Dose Admin Acetaminophen (Tylenol Tab) 650 mg Q4H PRN PO 03/22/17 03:15 04/21/17 03:14 03/28/17 08:01 650 MG Polyethylene (Miralax Powder Packet) 17 gm DAILY PRN PO 03/22/17 03:15 04/21/17 03:14 Ondansetron HCl (Zofran Inj) 4 mg Q6H PRN IV 03/22/17 03:15 04/21/17 03:14 03/28/17 05:25 4 MG Piperacillin Sod/ Tazobactam Sod 4.5 gm/Dextrose 120 ml @ 30 mls/hr Q8H IV 03/22/17 08:00 04/01/17 07:59 03/28/17 08:00 30 MLS/HR Lactobacillus Acidophilus (Floranex Tab) 4 tab TIDM PO 03/22/17 08:00 04/21/17 07:59 03/28/17 08:03 4 TAB Insulin Aspart (novoLOG ASPART) SLIDING SCALE G... ACHS SC 03/22/17 07:00 04/21/17 06:59 03/28/17 08:09 1 UNITS Piperacillin Sod/ Tazobactam Sod (Consult) 1 ea UD PRN N/A 03/22/17 05:30 04/21/17 05:29 Glucose (Glucose 40% Gel) 15-30 GRAMS 15 GRAMS... UD PRN PO 03/22/17 05:45 04/21/17 05:44 Glucose (Glucose Chew Tab) 4-8 Tablets 4 Tabl... UD PRN PO 03/22/17 05:45 04/21/17 05:44 Dextrose (Dextrose 50% 50ML Syringe) 25-50ML OF 50% DW IV FOR... UD PRN IV 03/22/17 05:45 04/21/17 05:44 Glucagon (Glucagon Inj) 1 mg UD PRN SQ 03/22/17 05:45 04/21/17 05:44 Ketorolac Tromethamine (Toradol Inj) 30 mg Q6H PRN IV 03/23/17 19:00 03/28/17 18:59 03/28/17 05:26 30 MG Clotrimazole (Clotrimazole Vag Crm) 1 appln HS PV 03/26/17 21:00 04/02/17 20:59 03/27/17 21:18 1 APPLN Ioversol (Optiray 320) 125 ml UD PRN IV 03/27/17 04:15 03/31/17 04:14 Enoxaparin Sodium (Lovenox Inj) 40 mg QAM SQ 03/28/17 09:00 04/27/17 08:59 03/28/17 09:38 40 MG Miconazole Nitrate (Desenex Powder) 1 appln BID EXT 03/28/17 21:00 04/27/17 20:59 Objective Vital Signs Date Time Temp Pulse Resp B/P (MAP) Pulse Ox O2 Delivery O2 Flow Rate FiO2 03/28/17 07:19 36.8 93 23 125/78 (94) 92 Nasal Cannula 2.0 03/27/17 23:39 Room Air 03/27/17 23:19 36.8 84 18 158/98 (118) 96 Room Air 03/27/17 22:18 36.8 82 18 145/103 (117) 94 Room Air 03/27/17 17:18 36.7 79 22 91 10.0 03/27/17 17:00 Room Air 03/27/17 16:00 Room Air 03/27/17 15:22 36.7 79 22 165/82 (109) 91 Room Air 03/27/17 12:00 Room Air Physical Exam General Appearance: WD/WN, no apparent distress Respiratory/Chest: chest non-tender, lungs clear, normal breath sounds, no respiratory distress, no accessory muscle use Cardiovascular: regular rate, rhythm, no gallop, no JVD, no murmur, + pertinent finding (bilateral lower limb edema, left worse than right. Left leg less erythematous than yesterday, still warm to touch. No tenderness on palpation.) Abdomen: normal bowel sounds, non tender, no organomegaly, no pulsatile mass, + pertinent finding (erythematous area extending from RLQ across abdomen. Erythema has improved, not as warm, hard or tender as yesterday.) Neurologic/Psychiatric: alert, normal mood/affect, oriented x 3 Laboratory Results Test 03/28/17 06:17 03/28/17 07:51 RDW Standard Deviation 49.3 fL (36.4-46.3) RDW Coefficient of Variation 14.8 % (11.5-14.5) Mean Platelet Volume 11.5 fL (7.4-10.4) Activated Partial Thromboplast Time 23.6 SECONDS (21.0-31.0) Partial Thromboplastin Ratio 0.9 Bedside Glucose 132 mg/dl (70-90) Assessment and Plan 41 year old female with hx of recurrent cellulitis in legs presented with cellulitis of the abdominal wall Sleep Apnea - overnight pulse ox performed - showed significant desaturations throughout the night with 428 apneic events recorded - nocturnal desaturations likely due to obesity hypoventilation syndrome - requires non-invasive ventilation therapy Abdominal Wall Cellulitis: - erythematous area looks pale pink, about the same as yesterday. Less tender and hard from yesterday. Not currently draining. - according to surgery - still potential for abscess formation - will continue to monitor - wound culture positive for proteus mirabilis. Will d/c on ten days of Levaquin 500mg BID - Continue Zosyn, clindamycin and Daptomycin Left lower extremity swelling: - ?venous stasis as longstanding, with negative doppler US - left leg erythema improved from yesterday - will continue to monitor Diabetes Mellitus Type 2 - Continue sliding scale insulin (range: 100-130 with correction factor of 30) - will f/u in clinic regarding lifestyle changes for managing diabetes VTE Prophylaxis - lovenox Code - Full Disposition - remains on med/surg Resident Physician Supervision Note: I interviewed and examined the patient. Discussed with Dr. Anguiano and agree with findings and plan as documented in the note. Any exceptions or clarifications are listed here: None Documented By: Khnah Bañuelos feeling better. O2 sats bad overnight. ABG showing hypercapnea as well. she notes has sometimes said she snores/stops breahting enough at night it scares him. will noted nad breathing unlabored no pallor or icterus abdominal wall cellulitis w sepsis - improving but still unclear when she'll finally be stable off IV abx. fortunately has not required surgical drainage, but infection has been difficult to clear SUKH/probable OHS, hypoxia - appears to relate to morbid obesity. enormous amount of time <88% on overnigth pulse ox. ABG showing hypercapnea. appears that she would strongly benefit from nocturnal noninvasive ventilation -- BIPAP/ trilogy type devices. repeat ABG early AM anticipate high enough pCO2 to qualify for this without sleep study. severe enough that even though she's likely been like this at home for a long time, likely would lead to deterioration of health far quicker than "regular" SUKH Resident Tracking Resident Involvement: Resident Care Provided Care Provided: Adult Hospital Medicine
[2017-03-28 12:55] LABS: ARTERIAL BLOOD GAS BASE EXCESS 5.1 mEq/L (-9-1.8); ARTERIAL BLOOD GAS HCO3 31 mmol/L (19-24); ARTERIAL BLOOD GAS PO2 84 mm/Hg (80-95); ARTERIAL BLOOD GAS pH 7.42 (7.35-7.45)
[2017-03-28 12:58] LABS: ALLEN TEST POS (POS); O2 ADMINISTRATION 4L
[2017-03-28 15:00] VITALS: BP 151/87; PULSE 94; TEMP 36.5; O2SAT 98
--- NOTE | 2017-03-28 15:44 | Infectious Disease Progress Nt ---
Progress Note Date of Service Mar 28, 2017. Subjective Pt evaluation today including: conversation w/ patient, physical exam, chart review, lab review, review of studies, conversation w/ licensed tax consultant, review of inpatient medication list complaining of vaginal irritation. Abdominal pain better. Remains afebrile. All Other Systems: Reviewed and Negative Medications Current Inpatient Medications Medications (Trade) Dose Ordered Sig/Everett Route Start Time Stop Time Status Last Admin Dose Admin Acetaminophen (Tylenol Tab) 650 mg Q4H PRN PO 03/22/17 03:15 04/21/17 03:14 03/28/17 08:01 650 MG Polyethylene (Miralax Powder Packet) 17 gm DAILY PRN PO 03/22/17 03:15 04/21/17 03:14 Ondansetron HCl (Zofran Inj) 4 mg Q6H PRN IV 03/22/17 03:15 04/21/17 03:14 03/28/17 05:25 4 MG Piperacillin Sod/ Tazobactam Sod 4.5 gm/Dextrose 120 ml @ 30 mls/hr Q8H IV 03/22/17 08:00 04/01/17 07:59 03/28/17 08:00 30 MLS/HR Lactobacillus Acidophilus (Floranex Tab) 4 tab TIDM PO 03/22/17 08:00 04/21/17 07:59 03/28/17 13:41 4 TAB Insulin Aspart (novoLOG ASPART) SLIDING SCALE G... ACHS SC 03/22/17 07:00 04/21/17 06:59 03/28/17 13:43 1 UNITS Piperacillin Sod/ Tazobactam Sod (Consult) 1 ea UD PRN N/A 03/22/17 05:30 04/21/17 05:29 Glucose (Glucose 40% Gel) 15-30 GRAMS 15 GRAMS... UD PRN PO 03/22/17 05:45 04/21/17 05:44 Glucose (Glucose Chew Tab) 4-8 Tablets 4 Tabl... UD PRN PO 03/22/17 05:45 04/21/17 05:44 Dextrose (Dextrose 50% 50ML Syringe) 25-50ML OF 50% DW IV FOR... UD PRN IV 03/22/17 05:45 04/21/17 05:44 Glucagon (Glucagon Inj) 1 mg UD PRN SQ 03/22/17 05:45 04/21/17 05:44 Ketorolac Tromethamine (Toradol Inj) 30 mg Q6H PRN IV 03/23/17 19:00 03/28/17 18:59 03/28/17 05:26 30 MG Clotrimazole (Clotrimazole Vag Crm) 1 appln HS PV 03/26/17 21:00 04/02/17 20:59 03/27/17 21:18 1 APPLN Ioversol (Optiray 320) 125 ml UD PRN IV 03/27/17 04:15 03/31/17 04:14 Enoxaparin Sodium (Lovenox Inj) 40 mg QAM SQ 03/28/17 09:00 04/27/17 08:59 03/28/17 09:38 40 MG Miconazole Nitrate (Desenex Powder) 1 appln BID EXT 03/28/17 21:00 04/27/17 20:59 Objective Vital Signs Date Time Temp Pulse Resp B/P (MAP) Pulse Ox O2 Delivery O2 Flow Rate FiO2 03/28/17 07:30 92 Oxymask 2.0 Nasal Cannula 03/28/17 07:19 36.8 93 23 125/78 (94) 92 Nasal Cannula 2.0 03/27/17 23:39 Room Air 03/27/17 23:19 36.8 84 18 158/98 (118) 96 Room Air 03/27/17 22:18 36.8 82 18 145/103 (117) 94 Room Air 03/27/17 17:18 36.7 79 22 91 10.0 03/27/17 17:00 Room Air 03/27/17 16:00 Room Air Physical Exam General Appearance: WD/WN ( all), no apparent distress, + severe distress, + obese Eyes: normal inspection, EOMI, sclerae normal (, that was a job) ENT: normal ENT inspection, hearing grossly normal, pharynx normal ( either ) Neck: supple, no adenopathy, thyroid normal, trachea midline Respiratory/Chest: chest non-tender, lungs clear, normal breath sounds, no respiratory distress (leat any a distinguishing markings) Cardiovascular: regular rate, rhythm, no gallop, no murmur Abdomen: normal bowel sounds, soft, no organomegaly, + tenderness ( slight lower quadrant) Extremities: non-tender, no calf tenderness Neurologic/Psychiatric: alert, oriented x 3 Skin: normal color, no rash, + pertinent finding ( improving lower abdominal cellulitis) Lymphatic: no adenopathy Laboratory Results Last 24 Hours Test 03/27/17 16:02 03/27/17 20:35 03/28/17 06:17 03/28/17 07:51 Bedside Glucose 97 mg/dl 118 mg/dl 132 mg/dl White Blood Count 10.43 K/uL Red Blood Count 4.54 M/uL Hemoglobin 13.2 g/dL Hematocrit 41.0 % Mean Corpuscular Volume 90.3 fL Mean Corpuscular Hemoglobin 29.1 pg Mean Corpuscular Hemoglobin Concent 32.2 g/dl RDW Standard Deviation 49.3 fL RDW Coefficient of Variation 14.8 % Platelet Count 264 K/uL Mean Platelet Volume 11.5 fL Activated Partial Thromboplast Time 23.6 SECONDS Partial Thromboplastin Ratio 0.9 Test 03/28/17 12:21 03/28/17 12:27 Bedside Glucose 136 mg/dl Arterial Blood pH 7.42 Arterial Blood Partial Pressure CO2 48 mmHg Arterial Blood Partial Pressure O2 84 mm/Hg Arterial Blood HCO3 31 mmol/L Arterial Blood Oxygen Saturation 96.0 % Arterial Blood Base Excess 5.1 mEq/L Arterial Blood Gas Delivery 4L Lyle Test POS Assessment and Plan 41-year-old female with history of recurrent lower extremity cellulitis, now with lower quadrant and groin cellulitis with superficial draining abscess with P. mirabilis. Patient appears to be improving and agree that she should be able to be transitioned to oral levofloxacin for another 7-10 days.
[2017-03-28] MEDS: MICONAZOLE NITRATE POWDER 43 GM EXT SCH (21:39)
[2017-03-28] MEDS: CLOTRIMAZOLE VAG CR 45 GM TUBE PV SCH (21:39)
[2017-03-28 23:32] VITALS: BP 154/109; PULSE 84; TEMP 36.9; O2SAT 94
[2017-03-29] VITALS (7 sets, daily range): BP systolic 64–171; BP diastolic 30–119; PULSE 80–88; TEMP 36.6–37; O2SAT 92–100
[2017-03-29 05:49] LABS: ARTERIAL BLD GAS O2 SATURATION 84.8 % (90-95); ARTERIAL BLOOD GAS BASE EXCESS 3.5 mEq/L (-9-1.8); ARTERIAL BLOOD GAS HCO3 31 mmol/L (19-24); ARTERIAL BLOOD GAS PO2 56 mm/Hg (80-95); ARTERIAL BLOOD GAS pH 7.33 (7.35-7.45)
[2017-03-29 05:57] LABS: ALLEN TEST POS (POS); O2 ADMINISTRATION ROOM AIR
[2017-03-29] MEDS: INSULIN ASPART 100 UNITS/ML 3 ML PEN SC SCH ×4 (08:00→21:00)
[2017-03-29] MEDS: PIPERACILL/TAZOBAC IV 4.5 GM in DEXTROSE 5% 100ML 100 ML IV SCH ×2 (08:12→18:38)
[2017-03-29] MEDS: LACTOBACILLUS ACIDOPHILUS (FLORANEX) TAB PO SCH ×3 (08:56→18:33)
[2017-03-29] MEDS: ENOXAPARIN 40 MG/0.4 ML SYR SQ SCH (08:57)
[2017-03-29] MEDS: MICONAZOLE NITRATE POWDER 43 GM EXT SCH ×2 (08:57→20:35)
[2017-03-29] MEDS: ACETAMINOPHEN 325 MG TAB PO PRN (11:44)
[2017-03-29] MEDS: ONDANSETRON INJ 2 MG/ML 2 ML VIAL IV PRN ×2 (11:44→21:07)
--- NOTE | 2017-03-29 15:51 | Family Medicine Progress Note ---
Progress Note Date of Service Mar 29, 2017. Subjective Pt evaluation today including: conversation w/ patient, physical exam, chart review, lab review, review of inpatient medication list Pain: No pain reported PO Intake: Tolerating PO intake Voiding: no voiding problems Ms. Bhatt reports that she feels well today. She reports a decrease in the heaviness and discomfort she has been feeling over her RLQ. She stated that she was draining more fluid last night, but that it has been dry since. Her vaginal irritation has been improving from yesterday as well. Constitutional: No fever, No chills, No sweats, No weakness Respiratory: No cough, No sputum, No wheezing, No shortness of breath, No dyspnea on exertion Cardiovascular: + edema (bilateral lower extremity edema), No chest pain, No orthopnea Abdomen: No pain, No nausea, No vomiting, No diarrhea All Other Systems: Reviewed and Negative Medications Current Inpatient Medications Medications (Trade) Dose Ordered Sig/Everett Route Start Time Stop Time Status Last Admin Dose Admin Acetaminophen (Tylenol Tab) 650 mg Q4H PRN PO 03/22/17 03:15 04/21/17 03:14 03/29/17 11:44 650 MG Polyethylene (Miralax Powder Packet) 17 gm DAILY PRN PO 03/22/17 03:15 04/21/17 03:14 Ondansetron HCl (Zofran Inj) 4 mg Q6H PRN IV 03/22/17 03:15 04/21/17 03:14 03/29/17 11:44 4 MG Piperacillin Sod/ Tazobactam Sod 4.5 gm/Dextrose 120 ml @ 30 mls/hr Q8H IV 03/22/17 08:00 04/01/17 07:59 03/29/17 08:12 30 MLS/HR Lactobacillus Acidophilus (Floranex Tab) 4 tab TIDM PO 03/22/17 08:00 04/21/17 07:59 03/29/17 12:46 4 TAB Insulin Aspart (novoLOG ASPART) SLIDING SCALE G... ACHS SC 03/22/17 07:00 04/21/17 06:59 03/29/17 12:46 1 UNITS Piperacillin Sod/ Tazobactam Sod (Consult) 1 ea UD PRN N/A 03/22/17 05:30 04/21/17 05:29 Glucose (Glucose 40% Gel) 15-30 GRAMS 15 GRAMS... UD PRN PO 03/22/17 05:45 04/21/17 05:44 Glucose (Glucose Chew Tab) 4-8 Tablets 4 Tabl... UD PRN PO 03/22/17 05:45 04/21/17 05:44 Dextrose (Dextrose 50% 50ML Syringe) 25-50ML OF 50% DW IV FOR... UD PRN IV 03/22/17 05:45 04/21/17 05:44 Glucagon (Glucagon Inj) 1 mg UD PRN SQ 03/22/17 05:45 04/21/17 05:44 Clotrimazole (Clotrimazole Vag Crm) 1 appln HS PV 03/26/17 21:00 04/02/17 20:59 03/28/17 21:39 1 APPLN Ioversol (Optiray 320) 125 ml UD PRN IV 03/27/17 04:15 03/31/17 04:14 Enoxaparin Sodium (Lovenox Inj) 40 mg QAM SQ 03/28/17 09:00 04/27/17 08:59 03/29/17 08:57 40 MG Miconazole Nitrate (Desenex Powder) 1 appln BID EXT 03/28/17 21:00 04/27/17 20:59 03/29/17 08:57 1 APPLN Objective Vital Signs Date Time Temp Pulse Resp B/P (MAP) Pulse Ox O2 Delivery O2 Flow Rate FiO2 03/29/17 15:40 36.6 88 18 149/95 (113) 100 Oxymask 10.0 03/29/17 08:00 95 Oxymask 10.0 03/29/17 07:42 37.0 80 21 133/66 (88) 92 Room Air 03/28/17 23:45 Venturi Mask 10.0 03/28/17 23:32 36.9 84 17 154/109 (124) 94 Oxymask 10.0 03/28/17 16:00 Mask 10.0 Physical Exam General Appearance: WD/WN, no apparent distress Neck: supple Respiratory/Chest: chest non-tender, lungs clear, normal breath sounds, no respiratory distress, no accessory muscle use Cardiovascular: regular rate, rhythm, no gallop, no JVD, no murmur, + pertinent finding (bilateral lower limb edema - left leg is also slightly erythematous) Abdomen: normal bowel sounds, non tender, soft, no organomegaly, no pulsatile mass, + pertinent finding (erythematous lesion in RLQ extending to left - RLQ feels hard and fluctuant with opening for fluid drainage) Neurologic/Psychiatric: alert, normal mood/affect, oriented x 3 Laboratory Results Test 03/29/17 05:29 03/29/17 11:44 Arterial Blood pH 7.33 (7.35-7.45) Arterial Blood Partial Pressure CO2 60 mmHg (35-46) Arterial Blood Partial Pressure O2 56 mm/Hg (80-95) Arterial Blood HCO3 31 mmol/L (19-24) Arterial Blood Oxygen Saturation 84.8 % (90-95) Arterial Blood Base Excess 3.5 mEq/L (-9-1.8) Arterial Blood Gas Delivery ROOM AIR Lyle Test POS (POS) Bedside Glucose 133 mg/dl (70-90) Assessment and Plan 41 year old female with hx of recurrent cellulitis in legs presented with cellulitis of the abdominal wall Sleep Apnea - hydrodynamicist ABG performed - showed pCO2 of 60 - nocturnal desaturations likely due to sleep apnea/obesity hypoventilation syndrome - will start bipap tonight - as per case management - she qualifies for bipap on d/c for two months but will need an official sleep study done Abdominal Wall Cellulitis: - erythematous area looks pale pink, about the same as yesterday. There appears to be a superficial abscess that drains intermittently - wound culture positive for proteus mirabilis. Will d/c on ten days of Levaquin 500mg BID. Aiming for d/c on Friday - Continue IV Zosyn Left lower extremity swelling: - ?venous stasis as longstanding, with negative doppler US - left leg erythema continuing to improve - will continue to monitor Diabetes Mellitus Type 2 - Continue sliding scale insulin (range: 100-130 with correction factor of 30) - will f/u in clinic regarding lifestyle changes for managing diabetes - Dr. Bañuelos had a discussion today with Ms. Bhatt and her as he is a diabetic as well about diabetes management VTE Prophylaxis - lovenox Code - Full Disposition - remains on med/surg Resident Physician Supervision Note: I interviewed and examined the patient. Discussed with Dr. Anguiano and agree with findings and plan as documented in the note. Any exceptions or clarifications are listed here: None Documented By: Khanh Bañuelos feelign Ok. and dtr present. discussed DM, SUKH/OHS. vitals noted nad breathing unlabored no pallor or icterus abdominal wall cellulitis w sepsis - slowly improving DM2 - lifestyle changes reiterated SUKH/OHS - actually does appear to need more urgent set up of noninvasive pressure support (such as trilogy) when sleeping otherwise as above Resident Tracking Resident Involvement: Resident Care Provided Care Provided: Adult Hospital Medicine
[2017-03-29] MEDS: CLOTRIMAZOLE VAG CR 45 GM TUBE PV SCH (20:36)
[2017-03-30] MEDS: PIPERACILL/TAZOBAC IV 4.5 GM in DEXTROSE 5% 100ML 100 ML IV SCH ×3 (00:05→16:33)
[2017-03-30 07:00] VITALS: BP 144/83; PULSE 80; TEMP 36.8; O2SAT 90
[2017-03-30 07:11] LABS: HEMATOCRIT 41.2 % (37-47); MEAN CELL VOLUME 91.2 fL (80-100); MEAN CORPUSCULAR HGB CONC 31.8 g/dl (32-36); MEAN PLATELET VOLUME 10.2 fL (7.4-10.4); PLATELET COUNT 312 K/uL (130-400); RED BLOOD COUNT 4.52 M/uL (4.2-5.4); WHITE BLOOD COUNT 13.19 K/uL (4.8-10.8)
[2017-03-30] MEDS: ACETAMINOPHEN 325 MG TAB PO PRN (08:32)
[2017-03-30] MEDS: MICONAZOLE NITRATE POWDER 43 GM EXT SCH ×2 (08:33→19:53)
[2017-03-30] MEDS: ENOXAPARIN 40 MG/0.4 ML SYR SQ SCH (08:33)
[2017-03-30] MEDS: LACTOBACILLUS ACIDOPHILUS (FLORANEX) TAB PO SCH ×3 (08:33→17:11)
[2017-03-30] MEDS: INSULIN ASPART 100 UNITS/ML 3 ML PEN SC SCH ×3 (08:42→21:35)
[2017-03-30 10:48] VITALS: O2SAT 86
[2017-03-30] MEDS: ONDANSETRON INJ 2 MG/ML 2 ML VIAL IV PRN (11:39)
[2017-03-30 14:53] VITALS: BP 161/105; PULSE 107; PULSE 115; TEMP 36.9; O2SAT 96
[2017-03-30 15:53] LABS: HEMATOCRIT 42.1 % (37-47); MEAN CELL VOLUME 90.9 fL (80-100); MEAN CORPUSCULAR HEMOGLOBIN 28.9 pg (25-34); MEAN CORPUSCULAR HGB CONC 31.8 g/dl (32-36); MEAN PLATELET VOLUME 10.2 fL (7.4-10.4); PLATELET COUNT 318 K/uL (130-400); RED BLOOD COUNT 4.63 M/uL (4.2-5.4); WHITE BLOOD COUNT 11.65 K/uL (4.8-10.8)
--- NOTE | 2017-03-30 15:54 | DIAGNOSTIC IMAGING REPORT ---
CHEST ONE VIEW PORTABLE CLINICAL HISTORY: respiratory failure. R/o pneumonia dyspnea COMPARISON STUDY: No previous studies for comparison. FINDINGS: Moderate cardiomegaly. Increased pulmonary vasculature. Diaphragms are smooth. IMPRESSION: Findings suggesting developing pulmonary edema. Moderate cardiomegaly. The above report was generated using voice recognition software. It may contain grammatical, syntax or spelling errors. Electronically signed by: Quan Ontiveros M.D. 03/30/2017 3:52 PM Dictated Date/Time: 03/30/2017 3:51 PM
[2017-03-30 15:57] LABS: ISTAT ALLEN TEST Pass; ISTAT ARTERIAL BLOOD GAS HCO3 34 meq/L (19-24); ISTAT ARTERIAL BLOOD GAS PCO2 52 mmHg (35-46); ISTAT ARTERIAL BLOOD GAS PO2 116 mmHg (80-95); ISTAT ARTERIAL BLOOD GAS pH 7.43 (7.35-7.45); ISTAT CARBON DIOXIDE 36 mEq/l (24-31); ISTAT SITE L Radial
[2017-03-30] MEDS: METHYLPREDNISOLONE IV 60 MG in SYRINGE 0 ML IV SCH ×2 (16:00→21:34)
[2017-03-30 16:25] VITALS: BP 112/97; PULSE 86; TEMP 37.4; O2SAT 96
[2017-03-30 16:30] LABS: CALCIUM 8.9 mg/dl (8.5-10.1); CREATININE 0.86 mg/dl (0.60-1.20); POTASSIUM 4.3 mmol/L (3.5-5.1)
--- NOTE | 2017-03-30 16:58 | Family Medicine Progress Note ---
Progress Note Date of Service Mar 30, 2017. Subjective Pt evaluation today including: conversation w/ patient, physical exam, chart review, lab review, review of inpatient medication list Pain: No pain reported PO Intake: Tolerating PO intake Voiding: no voiding problems Ms. Bhatt reports that she has a headache today, that was relieved by Tylenol. She tried BiPAP last night for the first time and reported it was difficult to sleep with the mask on. She feels that her cellulitis is improving, as well as the swelling in her legs. She denies the presence of any chest pain, SOB or palpitations. She reports her vaginal infection is improving. Constitutional: No fever, No chills, No sweats Respiratory: No cough, No sputum, No wheezing, No shortness of breath Cardiovascular: + edema (bilateral leg edema), No chest pain Abdomen: No pain, No nausea, No vomiting All Other Systems: Reviewed and Negative Medications Current Inpatient Medications Medications (Trade) Dose Ordered Sig/Everett Route Start Time Stop Time Status Last Admin Dose Admin Acetaminophen (Tylenol Tab) 650 mg Q4H PRN PO 03/22/17 03:15 04/21/17 03:14 03/30/17 08:32 650 MG Polyethylene (Miralax Powder Packet) 17 gm DAILY PRN PO 03/22/17 03:15 04/21/17 03:14 Ondansetron HCl (Zofran Inj) 4 mg Q6H PRN IV 03/22/17 03:15 04/21/17 03:14 03/30/17 11:39 4 MG Piperacillin Sod/ Tazobactam Sod 4.5 gm/Dextrose 120 ml @ 30 mls/hr Q8H IV 03/22/17 08:00 04/01/17 07:59 03/30/17 08:28 30 MLS/HR Lactobacillus Acidophilus (Floranex Tab) 4 tab TIDM PO 03/22/17 08:00 04/21/17 07:59 03/30/17 12:37 4 TAB Insulin Aspart (novoLOG ASPART) SLIDING SCALE G... ACHS SC 03/22/17 07:00 04/21/17 06:59 03/30/17 12:41 1 UNITS Piperacillin Sod/ Tazobactam Sod (Consult) 1 ea UD PRN N/A 03/22/17 05:30 04/21/17 05:29 Glucose (Glucose 40% Gel) 15-30 GRAMS 15 GRAMS... UD PRN PO 03/22/17 05:45 04/21/17 05:44 Glucose (Glucose Chew Tab) 4-8 Tablets 4 Tabl... UD PRN PO 03/22/17 05:45 04/21/17 05:44 Dextrose (Dextrose 50% 50ML Syringe) 25-50ML OF 50% DW IV FOR... UD PRN IV 03/22/17 05:45 04/21/17 05:44 Glucagon (Glucagon Inj) 1 mg UD PRN SQ 03/22/17 05:45 04/21/17 05:44 Clotrimazole (Clotrimazole Vag Crm) 1 appln HS PV 03/26/17 21:00 04/02/17 20:59 03/29/17 20:36 1 APPLN Ioversol (Optiray 320) 125 ml UD PRN IV 03/27/17 04:15 03/31/17 04:14 Enoxaparin Sodium (Lovenox Inj) 40 mg QAM SQ 03/28/17 09:00 04/27/17 08:59 03/30/17 08:33 40 MG Miconazole Nitrate (Desenex Powder) 1 appln BID EXT 03/28/17 21:00 04/27/17 20:59 03/30/17 08:33 1 APPLN Objective Vital Signs Date Time Temp Pulse Resp B/P (MAP) Pulse Ox O2 Delivery O2 Flow Rate FiO2 03/30/17 10:48 86 Room Air 03/30/17 08:56 Room Air 03/30/17 07:00 36.8 80 18 144/83 (103) 90 Room Air 03/30/17 00:10 Venturi Mask 10.0 03/29/17 23:32 36.7 84 20 144/85 (104) 94 Oxymask 10.0 03/29/17 22:15 10.0 03/29/17 19:44 171/119 (136) 03/29/17 19:38 35 64/30 (41) 03/29/17 15:45 100 Oxymask 10.0 03/29/17 15:40 36.6 88 18 149/95 (113) 100 Oxymask 10.0 Physical Exam General Appearance: WD/WN, no apparent distress Respiratory/Chest: chest non-tender, lungs clear, normal breath sounds, no respiratory distress, no accessory muscle use Cardiovascular: regular rate, rhythm, no gallop, no JVD, no murmur Abdomen: normal bowel sounds, non tender, soft, + pertinent finding (RLQ erythema, spreading to LLQ, warm to touch. Superficial abscess over RLQ. Erythematous blotches extending above cellulitic area) Neurologic/Psychiatric: alert, normal mood/affect, oriented x 3 Laboratory Results 03/30/17 06:52 Test 03/30/17 06:52 03/30/17 11:52 Red Blood Count 4.52 M/uL (4.2-5.4) Mean Corpuscular Volume 91.2 fL (80-100) Mean Corpuscular Hemoglobin 29.0 pg (25-34) Mean Corpuscular Hemoglobin Concent 31.8 g/dl (32-36) RDW Standard Deviation 49.5 fL (36.4-46.3) RDW Coefficient of Variation 14.7 % (11.5-14.5) Mean Platelet Volume 10.2 fL (7.4-10.4) Bedside Glucose 141 mg/dl (70-90) Assessment and Plan 41 year old female with hx of recurrent cellulitis in legs presented with cellulitis of the abdominal wall Sleep Apnea - continue BiPAP at nights - nocturnal desaturations likely due to sleep apnea/obesity hypoventilation syndrome - discharge with BiPAP - later this afternoon, Ms. Bhatt had an episode where she became hypoxic with sats in the 70s, was acutely confused and disoriented. She was repositioned to sit up, put on oxygen, and instructed to take deep breaths which resolved her symptoms - likely due to a combination of OHS and lying down for most of the day - ABG showed hypercapnia with CO2 of 50, after symptom resolution. Was likely higher before but then decreased with deep breathing - CBC, BMP ordered and were normal. WBC 11.65, decreased from this AM - chest xray clear, no evidence of infective process - methylprednisone ordered q6h and hydroxyzine prn for itching - currently on CPAP Abdominal Wall Cellulitis: - erythematous area spreading beyond usual margins. Superficial abscess present over RLQ, not draining. - wound culture positive for proteus mirabilis. Will d/c on ten days of Levaquin 500mg BID. Aiming for d/c on Friday - Continue IV Zosyn Left lower extremity swelling: - ?venous stasis as longstanding, with negative doppler US - left leg erythema looks the same as yesterday - appears to be normal for her Diabetes Mellitus Type 2 - Continue sliding scale insulin (range: 100-130 with correction factor of 30) - will f/u in clinic regarding lifestyle changes for managing diabetes VTE Prophylaxis - lovenox Code - Full Disposition - transferred to PCU Resident Physician Supervision Note: I interviewed and examined the patient. Discussed with [Silvio] and agree with findings and plan as documented in the note. Any exceptions or clarifications are listed here: [None] Documented By: Khanh Bañuelos initially seen as above, then Dr Anguiano and i revisited as we were called due to acute distress. itchy rash, sob, confusion. no f/c/s. no new abdominal pain vitals w difficult tracing on pulse ox but reliable tracigs seemed mostly high 80 to mid 90's. confused but no focal neuro deficits. abdominal wall erythema ongoing diffuse but no crepitis, a few blotchy patches appearing not quite wheal like; back with multiple papules pruritic. lungs quiet diminished air entry but cta without r/r/w. poor spontaneous effort but then with prompting breathes deeper, no accessory muscles, no cyanosis. acute hypoxic/hypercapnic respiratory failure - improved with prompted hyperventilation (ABG taken about a minute into nursing helping have her breathe more deeply) - suspect mostly due to OHS (chronic) worsened by deconditioning from having been in hospital for >1wk, as well as spending more time horizontal (with gravity then playing more of a role in OHS) -- bipap. however, CXR raises question of pulmonary edema - lasix x1 follow for results, get echo (OHS mechanics coudl be provoking cardiomyopathy) abdominal wall cellulitis - suspect mostly residual inflammation changes, likely can change to PO rash - ?nothing to provoke allergic. heat rash. follow, steroids for now ( hold on antihistamines since could alter mentation) Resident Tracking Resident Involvement: Resident Care Provided Care Provided: Adult [facility] Medicine
[2017-03-30 17:09] VITALS: O2SAT 95
[2017-03-30] MEDS ORDERED: FUROSEMIDE INJ 40 MG in SYRINGE 0 ML IV ONE (17:15)
[2017-03-30 19:00] VITALS: BP 154/95; PULSE 95; TEMP 37; O2SAT 93
[2017-03-30] MEDS: hydrOXYzine HCL 25 MG TAB PO PRN (19:53)
[2017-03-30] MEDS: CLOTRIMAZOLE VAG CR 45 GM TUBE PV SCH (19:54)
[2017-03-31] VITALS (8 sets, daily range): BP systolic 149–166; BP diastolic 88–129; PULSE 64–102; TEMP 36.6–37.1; O2SAT 90–97
[2017-03-31] MEDS: PIPERACILL/TAZOBAC IV 4.5 GM in DEXTROSE 5% 100ML 100 ML IV SCH ×3 (00:16→16:37)
[2017-03-31] MEDS: METHYLPREDNISOLONE IV 60 MG in SYRINGE 0 ML IV SCH ×4 (04:09→21:30)
[2017-03-31 05:47] LABS: HEMATOCRIT 42.6 % (37-47); MEAN CELL VOLUME 90.1 fL (80-100); MEAN CORPUSCULAR HEMOGLOBIN 29.6 pg (25-34); MEAN CORPUSCULAR HGB CONC 32.9 g/dl (32-36); MEAN PLATELET VOLUME 10.8 fL (7.4-10.4); PLATELET COUNT 297 K/uL (130-400); RED BLOOD COUNT 4.73 M/uL (4.2-5.4); WHITE BLOOD COUNT 13.38 K/uL (4.8-10.8)
[2017-03-31] MEDS ORDERED: PERFLUTREN LIPID MICROSPHERE (DEFINITY) IV ONE (07:53)
[2017-03-31] MEDS: LACTOBACILLUS ACIDOPHILUS (FLORANEX) TAB PO SCH ×3 (08:09→16:40)
[2017-03-31] MEDS: INSULIN ASPART 100 UNITS/ML 3 ML PEN SC SCH ×4 (08:10→21:30)
[2017-03-31] MEDS: ONDANSETRON INJ 2 MG/ML 2 ML VIAL IV PRN (08:10)
[2017-03-31] MEDS: MICONAZOLE NITRATE POWDER 43 GM EXT SCH ×2 (08:11→20:36)
[2017-03-31] MEDS: ENOXAPARIN 40 MG/0.4 ML SYR SQ SCH (08:41)
--- NOTE | 2017-03-31 10:52 | Family Medicine Progress Note ---
Progress Note Date of Service Mar 31, 2017. Subjective Pt evaluation today including: conversation w/ patient, physical exam, chart review, lab review Pain: none Voiding: no voiding problems Pt feels well, says she slept 6 hours last night with BiPap mask. She says she is not conscious of her snoring although daughter and have told her it is very loud at home, and pt has experienced morning headaches and fatigue more recently. Pt is eating and voiding well. Complains of mild pain "kane horse" on right calf. Says the "blister" that opened up yesterday on her left perez is covered with a bandage today. Also complains of itchiness all over due to a rash that she says broke out after her last dose of Lovenox. Also complains of itchiness over her cellulitis on her lower abdomen, and that the area is still warm. Constitutional: No fever, No chills, No sweats Eyes: No worsening of vision, No eye pain Respiratory: No cough, No sputum, No wheezing Cardiovascular: + edema (reports that LT leg is always bigger and swollen, RT leg also usually swollen ), No chest pain Abdomen: + pain (pain due to cellulitis infection on her lower abdomen, that she says initially felt painful and like there was a "ball" in her lower right abdomen.), No vomiting, No diarrhea, No constipation Female : + dysuria (had dysuria that pt says is resolving with medication given for yeast infection), No urinary frequency Endo: No excessive thirst, No excessive urination Skin: + rash (diffuse rash on trunk and upper arms pt says came after last dose of lovenox), + itch (itchy diffuse rash, and infected area on lower abdomen also itchy. Better with meds) Objective Physical Exam General Appearance: no apparent distress Eyes: normal inspection, PERRL, EOMI, sclerae normal ENT: hearing grossly normal Respiratory/Chest: lungs clear, no respiratory distress, no accessory muscle use Cardiovascular: regular rate, rhythm, no JVD, no murmur Extremities: normal range of motion, + calf tenderness (mild tenderness on palpation of Rt LE. Denies pain on flexion at RT ankle.), + swelling (swelling and erythema present on LE b/l. 2x2 small bandage over blister on RT LE. LT LE is greater in size compared to RT LE.) Neurologic/Psychiatric: alert, normal mood/affect, oriented x 3 Skin: + rash (diffuse blanching non raised blotchy rash present over chest, antecubital areas b/l, and back.), + pertinent finding (skin on lower abdomen is erythematous and mildly stiff. No evidence of oozing or break in skin. ) Assessment and Plan 41 y/o F with no PMHx and no established PCP admitted 03/22/17 for acute cellulitis of lower abdomen. Cellulitis - Pt admitted for cellulitis infection of skin over lower abdominal area. - per ID, lesion is positive for Proteus mirabilis - pansensitive to antibiotics. - area of infection still appears erythematous and may not be improving as expected. ID Dr. Sanchez scheduled to consult tomorrow, so have ordered extension of IV Zosyn stop date to 04/03/17. Will observe for improvement before starting PO Levaquin and discharging home. Hypoxic/Hypercapnic respiratory failure secondary to Sleep apnea/Obesity hypoventilation syndrome - continue BiPap machine due to lower O2 sats while sleeping. Will continue to observe O2 sats for improvement. - Will require home sleep study to qualify for CPAP machine. Pt will likely require DC with supplemental O2, which can be titrated closer to dc date. Rash - non specific/allergic rash noted on trunk and arms, pruritic. Controlled with hydroxizine. - follow closely Leg swelling - stable, chronic stasis of lower extremities, LT>>RT. Pt c/o cramping quality to RT calf which is not new for her, but is persistent. Has h/o DVT. - Doppler of LLE wnl - ordered doppler of RLE today, awaiting results. DVT ppx - continue lovenox - SCD's Code status - FULL Disposition - pt lives at home with and 2 teenage kids. Anticipate DC back home when medically ready. Pt's family is currently on vacation. - likely to require supplemental O2 on DC. Continued [facility] stay due to: multiple IV medications needed Discharge planning: home Reviewed: Pt Seen/Exam by Me History sitting in chair denies in any new complaints continues to have lower abdomen redness Constitutional: denies: fever Respiratory: positive: other (continuing to use bipap at night) Cardiovascular: denies chest pain General Appearance: no apparent distress Respiratory: lungs clear, no respiratory distress Cardiovascular: regular rate, rhythm Neurologic/Psychiatric: alert, oriented x 3 Skin Characteristics: other (lower abdomen with pitting edema and erythema +) Assessment/Plan Resident Physician Supervision Note: I was present with Dr. Rader in bedside. I verified the nath history and physical, reviewed labs and image studies, discussed the case with the resident and agree with the findings and care plan.
[2017-03-31] MEDS: hydrOXYzine HCL 25 MG TAB PO PRN (12:49)
--- NOTE | 2017-03-31 16:15 | ECHOCARDIOGRAM REPORT ---
*NOTICE TO RECEIVING LIBERTARIAN AGENCY This information is strictly Confidential and protected under [place] law. [place] law prohibits you from making any further disclosure of this information unless further disclosure is expressly permitted by the written consent of the person to whom it pertains or is authorized by law. A general authorization for the release of medical or other information is not sufficient for this purpose. Hospital accepts no responsibility if the information is made available to any other person, INCLUDING THE PATIENT. Interpretation Summary * Name: NOHELIA CARRENO Study Date: 03/31/2017 07:30 AM BP: 165/98 mmHg * Patient Location: .2E\S\E204\S\1 HR: 83 * : 1975 (M/d/yyyy) Gender: Female Height: 56 in * Age: 41 yrs Ethnicity: [place] Weight: 325 lb * Ordering Physician: Khanh Bañuelos * Referring Physician: Self, Referred * Performed By: Steve Carrero RCS * * Reason For Study: Questionable CHF * BSA: 2.2 m2 * Normal biventricular systolic function. * Class 1 left ventricular diastolic dysfunction. * Normal chamber dimensions. * No significant valvular abnormalities. * The study was technically difficult. Procedure Details * A complete two-dimensional transthoracic echocardiogram was performed (2D, M-mode, Doppler and color flow Doppler). * The study was technically difficult. * There were technical limitations due to patient'sbody habitus * A contrast injection of Definity was performed to improve assessment of LV function. * Contrast was injected into an intravenous site in the right arm. * One vial of Definity ultrasound contrast was diluted in normal saline to a total volume of 10 ml. A total of '20' ml of solution was administered during imaging. * Lot # [id number] of Definity utilized for procedure. * Expiration date [id number]. * The attending nurse who injected the contrast agent was Steve Hinojosa RN. Left Ventricle * The left ventricle is normal in size. * There is normal left ventricular wall thickness. * Ejection Fraction = 60-65%. * Left ventricular systolic function is normal. * A full diastolic examination was done with clinical findings of Class I diastolic dysfunction. * The left ventricular wall motion is normal. Right Ventricle * The right ventricle is normal in size and function. * The right ventricular systolic function is normal as assessed by tricuspid annular plane systolic excursion (TAPSE) (normal >1.5 cm). Atria * The left atrial size is normal. * Right atrium not well visualized. * Right atrial size is normal. Mitral Valve * The mitral valve is normal. * There is no mitral valve stenosis. * There is no mitral regurgitation noted. Tricuspid Valve * The tricuspid valve is not well visualized. * Significant tricuspid regurgitation is absent. Aortic Valve * The aortic valve is not well visualized. * Aortic stenosis is absent. * There is no significant aortic regurgitation. Pulmonic Valve * The pulmonic valve is not well visualized. * There is no significant pulmonary regurgitation. Great Vessels * The aortic root is normal size. Pericardium/Pleural * There is no pericardial effusion. Great Vessels * Normal inferior vena cava diameter and respiratory variation suggests normal central venous pressure. MMode 2D Measurements and Calculations IVSd 0.98 cm IVSs 1.5 cm LVIDd 5.1 cm LVIDs 3.5 cm LVPWd 1.0 cm LVPWs 1.6 cm IVS/LVPW 0.94 FS 32.2 % EDV(Teich) 125.1 ml ESV(Teich) 50.0 ml EF(Teich) 60.1 % EDV(cubed) 134.4 ml ESV(cubed) 41.9 ml EF(cubed) 68.8 % % IVS thick 53.0 % % LVPW thick 52.2 % LV mass(C)d 191.1 grams LV mass(C)dI 87.6 grams/m\S\2 LV mass(C)s 199.1 grams LV mass(C)sI 91.2 grams/m\S\2 CO(Teich) 6.5 l/min CI(Teich) 3.0 l/min/m\S\2 SV(Teich) 75.1 ml SI(Teich) 34.4 ml/m\S\2 CO(cubed) 8.0 l/min CI(cubed) 3.6 l/min/m\S\2 SV(cubed) 92.5 ml SI(cubed) 42.4 ml/m\S\2 Ao root diam 3.6 cm Ao root area 10.3 cm\S\2 ACS 2.1 cm LA dimension 3.8 cm asc Aorta Diam 3.0 cm LA/Ao 1.0 LVAd ap4 46.9 cm\S\2 LVLd ap4 9.7 cm EDV(MOD-sp4) 183.0 ml LVAs ap4 24.2 cm\S\2 LVLs ap4 7.7 cm ESV(MOD-sp4) 63.0 ml EF(MOD-sp4) 65.6 % LVAd ap2 47.7 cm\S\2 LVLd ap2 10.2 cm EDV(MOD-sp2) 180.0 ml LVAs ap2 27.4 cm\S\2 LVLs ap2 7.7 cm ESV(MOD-sp2) 80.0 ml EF(MOD-sp2) 55.6 % CO(MOD-sp4) 10.3 l/min CI(MOD-sp4) 4.7 l/min/m\S\2 SV(MOD-sp4) 120.0 ml SI(MOD-sp4) 55.0 ml/m\S\2 CO(MOD-sp2) 8.6 l/min CI(MOD-sp2) 3.9 l/min/m\S\2 SV(MOD-sp2) 100.0 ml SI(MOD-sp2) 45.8 ml/m\S\2 Doppler Measurements and Calculations MV E max kathy 90.9 cm/sec MV A max kathy 93.5 cm/sec MV E/A 0.97 MV P1/2t max kathy 115.8 cm/sec MV P1/2t 78.6 msec MVA(P1/2t) 2.8 cm\S\2 MV dec slope 431.8 cm/sec\S\2 MV dec time 0.28 sec Ao V2 max 129.1 cm/sec Ao max PG 6.7 mmHg Ao max PG (full) 2.7 mmHg LV V1 max PG 4.0 mmHg LV V1 max 99.6 cm/sec PA V2 max 115.6 cm/sec PA max PG 5.4 mmHg
--- NOTE | 2017-03-31 18:27 | Infectious Disease Progress Nt ---
Progress Note Date of Service Mar 31, 2017. Subjective Pt evaluation today including: conversation w/ patient, physical exam, chart review, lab review, review of studies, conversation w/ sales enablement consultant, review of inpatient medication list Complaining of pruritus after injection of Lovenox. Otherwise feeling better. Still with some lower abdominal pain. No fever. No worsening drainage. All Other Systems: Reviewed and Negative Medications Current Inpatient Medications Medications (Trade) Dose Ordered Sig/Everett Route Start Time Stop Time Status Last Admin Dose Admin Acetaminophen (Tylenol Tab) 650 mg Q4H PRN PO 03/22/17 03:15 04/21/17 03:14 03/30/17 08:32 650 MG Polyethylene (Miralax Powder Packet) 17 gm DAILY PRN PO 03/22/17 03:15 04/21/17 03:14 Ondansetron HCl (Zofran Inj) 4 mg Q6H PRN IV 03/22/17 03:15 04/21/17 03:14 03/31/17 08:10 4 MG Piperacillin Sod/ Tazobactam Sod 4.5 gm/Dextrose 120 ml @ 30 mls/hr Q8H IV 03/22/17 08:00 04/03/17 07:59 03/31/17 16:37 30 MLS/HR Lactobacillus Acidophilus (Floranex Tab) 4 tab TIDM PO 03/22/17 08:00 04/21/17 07:59 03/31/17 16:40 4 TAB Insulin Aspart (novoLOG ASPART) SLIDING SCALE G... ACHS SC 03/22/17 07:00 04/21/17 06:59 03/31/17 16:39 5 UNITS Piperacillin Sod/ Tazobactam Sod (Consult) 1 ea UD PRN N/A 03/22/17 05:30 04/21/17 05:29 Glucose (Glucose 40% Gel) 15-30 GRAMS 15 GRAMS... UD PRN PO 03/22/17 05:45 04/21/17 05:44 Glucose (Glucose Chew Tab) 4-8 Tablets 4 Tabl... UD PRN PO 03/22/17 05:45 04/21/17 05:44 Dextrose (Dextrose 50% 50ML Syringe) 25-50ML OF 50% DW IV FOR... UD PRN IV 03/22/17 05:45 04/21/17 05:44 Glucagon (Glucagon Inj) 1 mg UD PRN SQ 03/22/17 05:45 04/21/17 05:44 Clotrimazole (Clotrimazole Vag Crm) 1 appln HS PV 03/26/17 21:00 04/02/17 20:59 03/30/17 19:54 1 APPLN Enoxaparin Sodium (Lovenox Inj) 40 mg QAM SQ 03/28/17 09:00 04/27/17 08:59 03/30/17 08:33 40 MG Miconazole Nitrate (Desenex Powder) 1 appln BID EXT 03/28/17 21:00 04/27/17 20:59 03/31/17 08:11 1 APPLN Methylprednisolone Sodium Succinate 60 mg/Syringe 0.96 ml @ 1.5 mls/min Q6H IV 03/30/17 16:00 04/29/17 15:59 03/31/17 16:37 1.5 MLS/MIN Hydroxyzine HCl (Vistaril Tab) 25 mg Q6H PRN PO 03/30/17 16:15 04/29/17 16:14 03/31/17 12:49 25 MG Objective Vital Signs Date Time Temp Pulse Resp B/P (MAP) Pulse Ox O2 Delivery O2 Flow Rate FiO2 03/31/17 15:51 37.1 89 20 166/91 (116) 96 Oxymask 6.0 03/31/17 12:00 Mask 6.0 03/31/17 11:36 36.8 101 27 149/91 (110) 96 Nasal Cannula 6.0 03/31/17 08:07 36.8 80 26 159/98 (118) 90 Mask 6.0 03/31/17 08:00 Mask 6.0 03/31/17 04:00 BiPAP 70 03/31/17 03:49 37.0 83 24 165/98 (120) 94 CPAP 03/31/17 02:17 95 100 03/31/17 00:10 36.7 64 20 152/88 (109) 97 CPAP 03/31/17 00:02 BiPAP 100 03/30/17 20:00 Mask 6.0 03/30/17 19:00 37.0 95 18 154/95 (114) 93 Mask 6.0 Physical Exam General Appearance: WD/WN, no apparent distress Eyes: normal inspection, sclerae normal ENT: normal ENT inspection, pharynx normal Neck: supple, no adenopathy, trachea midline Respiratory/Chest: lungs clear, normal breath sounds, no respiratory distress Cardiovascular: regular rate, rhythm, no gallop, no murmur Abdomen: normal bowel sounds, non tender, soft, no organomegaly Extremities: normal capillary refill, + pertinent finding ( Improving lower extremity cellulitis) Neurologic/Psychiatric: alert, oriented x 3 Skin: normal color, + pertinent finding ( still with some erythema lower quadrant, improved from admission) Lymphatic: no adenopathy Laboratory Results Last 24 Hours Test 03/30/17 20:14 03/31/17 05:19 03/31/17 07:03 03/31/17 11:05 Bedside Glucose 140 mg/dl 186 mg/dl 237 mg/dl White Blood Count 13.38 K/uL Red Blood Count 4.73 M/uL Hemoglobin 14.0 g/dL Hematocrit 42.6 % Mean Corpuscular Volume 90.1 fL Mean Corpuscular Hemoglobin 29.6 pg Mean Corpuscular Hemoglobin Concent 32.9 g/dl RDW Standard Deviation 47.6 fL RDW Coefficient of Variation 14.4 % Platelet Count 297 K/uL Mean Platelet Volume 10.8 fL [~ rep ct add3]] CHEST ONE VIEW PORTABLE CLINICAL HISTORY: respiratory failure. R/o pneumonia dyspnea COMPARISON STUDY: No previous studies for comparison. FINDINGS: Moderate cardiomegaly. Increased pulmonary vasculature. Diaphragms are smooth. IMPRESSION: Findings suggesting developing pulmonary edema. Moderate cardiomegaly. The above report was generated using voice recognition software. It may contain grammatical, syntax or spelling errors. Electronically signed by: Quan Ontiveros M.D. 03/30/2017 3:52 PM Dictated Date/Time: 03/30/2017 3:51 PM Assessment and Plan 41-year-old female with history of recurrent lower extremity cellulitis, now with lower quadrant and groin cellulitis with superficial draining abscess with P. mirabilis. Patient appears to be improving on current regimen, will discuss transition to oral antibiotics with hospitalist service. Will continue to follow.
--- NOTE | 2017-03-31 20:04 | DIAGNOSTIC IMAGING REPORT ---
ULTRASOUND RIGHT LOWER EXTREMITY VENOUS CLINICAL HISTORY: Right leg swelling. COMPARISON STUDY: No priors. TECHNIQUE: Real-time, grayscale, and color Doppler sonography of the deep veins of the right lower extremity was performed from the inguinal crease to the calf. Compression and augmentation were utilized. FINDINGS: There is no sonographic evidence of deep venous thrombosis identified in the right lower extremity. The common femoral, superficial femoral, and popliteal veins are patent and normally compressible. The greater saphenous vein and the profunda femoris vein at the junction with the common femoral vein are clear. The visualized calf veins are patent. IMPRESSION: There is no sonographic evidence of deep venous thrombosis identified in the right lower extremity. Electronically signed by: Rafiq Majano M.D. 03/31/2017 8:03 PM Dictated Date/Time: 03/31/2017 8:02 PM
[2017-03-31] MEDS: CLOTRIMAZOLE VAG CR 45 GM TUBE PV SCH (20:37)
[2017-04-01] VITALS (10 sets, daily range): BP systolic 122–170; BP diastolic 71–112; PULSE 61–103; TEMP 36.3–36.9; O2SAT 91–99
[2017-04-01] MEDS: PIPERACILL/TAZOBAC IV 4.5 GM in DEXTROSE 5% 100ML 100 ML IV SCH ×2 (00:06→07:47)
[2017-04-01] MEDS: hydrOXYzine HCL 25 MG TAB PO PRN ×2 (00:06→07:45)
[2017-04-01] MEDS: METHYLPREDNISOLONE IV 60 MG in SYRINGE 0 ML IV SCH ×2 (04:54→11:17)
[2017-04-01 05:51] LABS: HEMATOCRIT 42.7 % (37-47); MEAN CELL VOLUME 90.5 fL (80-100); MEAN CORPUSCULAR HEMOGLOBIN 28.8 pg (25-34); MEAN CORPUSCULAR HGB CONC 31.9 g/dl (32-36); MEAN PLATELET VOLUME 10.4 fL (7.4-10.4); PLATELET COUNT 343 K/uL (130-400); RED BLOOD COUNT 4.72 M/uL (4.2-5.4); WHITE BLOOD COUNT 16.84 K/uL (4.8-10.8)
[2017-04-01 06:28] LABS: BUN/CREATININE RATIO 16.8 (10-20); CREATININE 0.88 mg/dl (0.60-1.20); POTASSIUM 4.4 mmol/L (3.5-5.1)
[2017-04-01] MEDS: INSULIN ASPART 100 UNITS/ML 3 ML PEN SC SCH ×4 (07:44→20:41)
[2017-04-01] MEDS: ENOXAPARIN 40 MG/0.4 ML SYR SQ SCH (07:44)
[2017-04-01] MEDS: LACTOBACILLUS ACIDOPHILUS (FLORANEX) TAB PO SCH ×3 (07:45→17:47)
[2017-04-01] MEDS: MICONAZOLE NITRATE POWDER 43 GM EXT SCH ×2 (07:45→20:43)
[2017-04-01] MEDS ORDERED: FUROSEMIDE INJ 40 MG in SYRINGE 0 ML IV SCH (10:45)
--- NOTE | 2017-04-01 12:03 | Family Medicine Progress Note ---
Progress Note Date of Service Apr 01, 2017. Subjective Pt evaluation today including: conversation w/ patient Voiding: no voiding problems, no incontinence Pt reports feeling well today, denies headache or fatigue. Says she is feeling more comfortable using the CPAP machine overnight and says she feels better rested than before. Pt reports area over lower abdominal wall is feeling better , is less hot to touch and less itchy. Pt denies any itchiness associated with truncal rash. Pt expressed feeling down today, saying that she misses her family and that she is upset her is leaving for vacation to the beach [place] her. Pt denies suicidality, and says talking with the flour blender was somewhat helpful yesterday. Constitutional: No fever, No chills, No sweats, No fatigue Respiratory: No cough, No sputum, No shortness of breath Cardiovascular: No chest pain, No palpitations Abdomen: No vomiting, No diarrhea, No constipation Musculoskeletal: + swelling (chronic swelling present) Female : No dysuria, No incontinence Psychiatric: + depression symptoms (pt reports feeling teary, but denies suicidality), No insomnia Skin: + rash (pt says cellulitis feels improved, less itchy and less puffy; rash still present on trunk but pt reports improvement) Medications Current Inpatient Medications Medications (Trade) Dose Ordered Sig/Everett Route Start Time Stop Time Status Last Admin Dose Admin Acetaminophen (Tylenol Tab) 650 mg Q4H PRN PO 03/22/17 03:15 04/21/17 03:14 03/30/17 08:32 650 MG Polyethylene (Miralax Powder Packet) 17 gm DAILY PRN PO 03/22/17 03:15 04/21/17 03:14 Ondansetron HCl (Zofran Inj) 4 mg Q6H PRN IV 03/22/17 03:15 04/21/17 03:14 03/31/17 08:10 4 MG Piperacillin Sod/ Tazobactam Sod 4.5 gm/Dextrose 120 ml @ 30 mls/hr Q8H IV 03/22/17 08:00 04/03/17 07:59 04/01/17 07:47 30 MLS/HR Lactobacillus Acidophilus (Floranex Tab) 4 tab TIDM PO 03/22/17 08:00 04/21/17 07:59 04/01/17 07:45 4 TAB Insulin Aspart (novoLOG ASPART) SLIDING SCALE G... ACHS SC 03/22/17 07:00 04/21/17 06:59 04/01/17 07:44 6 UNITS Piperacillin Sod/ Tazobactam Sod (Consult) 1 ea UD PRN N/A 03/22/17 05:30 04/21/17 05:29 Glucose (Glucose 40% Gel) 15-30 GRAMS 15 GRAMS... UD PRN PO 03/22/17 05:45 04/21/17 05:44 Glucose (Glucose Chew Tab) 4-8 Tablets 4 Tabl... UD PRN PO 03/22/17 05:45 04/21/17 05:44 Dextrose (Dextrose 50% 50ML Syringe) 25-50ML OF 50% DW IV FOR... UD PRN IV 03/22/17 05:45 04/21/17 05:44 Glucagon (Glucagon Inj) 1 mg UD PRN SQ 03/22/17 05:45 04/21/17 05:44 Clotrimazole (Clotrimazole Vag Crm) 1 appln HS PV 03/26/17 21:00 04/02/17 20:59 03/31/17 20:37 1 APPLN Enoxaparin Sodium (Lovenox Inj) 40 mg QAM SQ 03/28/17 09:00 04/27/17 08:59 04/01/17 07:44 40 MG Miconazole Nitrate (Desenex Powder) 1 appln BID EXT 03/28/17 21:00 04/27/17 20:59 04/01/17 07:45 1 APPLN Methylprednisolone Sodium Succinate 60 mg/Syringe 0.96 ml @ 1.5 mls/min Q6H IV 03/30/17 16:00 04/29/17 15:59 04/01/17 04:54 1.5 MLS/MIN Hydroxyzine HCl (Vistaril Tab) 25 mg Q6H PRN PO 03/30/17 16:15 04/29/17 16:14 04/01/17 07:45 25 MG Furosemide 40 mg/ Syringe 4 ml @ 4 mls/min TODAY@1045 IV 04/01/17 10:45 04/01/17 12:00 Objective Vital Signs Date Time Temp Pulse Resp B/P (MAP) Pulse Ox O2 Delivery O2 Flow Rate FiO2 04/01/17 11:10 36.8 85 24 170/88 (115) 97 168/108 (128) 04/01/17 08:00 Oxymask 5.0 04/01/17 07:48 36.9 94 23 134/81 (98) 98 BiPAP 04/01/17 04:14 36.5 61 20 122/71 (88) 99 CPAP 70 04/01/17 04:00 Nasal Cannula 2.0 04/01/17 02:40 66 97 10.0 04/01/17 00:00 Nasal Cannula 2.0 03/31/17 23:41 36.7 88 30 151/92 (111) 90 Oxymask 3.0 03/31/17 20:00 Room Air 2.0 Oxymask 03/31/17 19:36 36.6 102 24 157/104 (121) 90 165/129 (141) 03/31/17 16:00 Room Air 2.0 Oxymask 03/31/17 15:51 37.1 89 20 166/91 (116) 96 Oxymask 6.0 Physical Exam General Appearance: WD/WN, no apparent distress Eyes: normal inspection, PERRL, EOMI Respiratory/Chest: lungs clear, normal breath sounds, no respiratory distress Cardiovascular: regular rate, rhythm, no JVD, no murmur Skin: warm/dry, + rash (erythema, warmth and mild edema noted on lower abdominal wall; concomitant rash on trunk area notably less erythematous compared to yesterday; LE erythema and warmth due to chronic stasis noted.) Laboratory Results 04/01/17 05:28 04/01/17 05:28 Test 04/01/17 05:28 04/01/17 06:27 Red Blood Count 4.72 M/uL (4.2-5.4) Mean Corpuscular Volume 90.5 fL (80-100) Mean Corpuscular Hemoglobin 28.8 pg (25-34) Mean Corpuscular Hemoglobin Concent 31.9 g/dl (32-36) RDW Standard Deviation 47.6 fL (36.4-46.3) RDW Coefficient of Variation 14.5 % (11.5-14.5) Mean Platelet Volume 10.4 fL (7.4-10.4) Anion Gap 7.0 mmol/L (3-11) Est Creatinine Clear Calc Drug Dose 122.7 ml/min Estimated GFR () 94.6 Estimated GFR (Non- 81.6 BUN/Creatinine Ratio 16.8 (10-20) Calcium Level 9.0 mg/dl (8.5-10.1) Bedside Glucose 196 mg/dl (70-90) Assessment and Plan 41 y/o F with no PMHx and no established PCP admitted 03/22/17 for acute cellulitis of lower abdomen. Cellulitis - lower abdominal area and both legs. - per ID, lesion is positive for Proteus mirabilis - pansensitive to antibiotics. - area of infection appears to be improving as of today. Per ID Dr. Sanchez switching to PO Levoquin. - Underlying venous stasis likely contributing - IV lasix helping as well Hypoxic/Hypercapnic respiratory failure secondary to Sleep apnea/Obesity hypoventilation syndrome - continue CPAP while sleeping, marked improvement in O2 sats overnight (98-99). - admissions manager is working on acquiring Trilogy machine for use after DC. - Will require home sleep study in outpatient. Rash - improving - non specific/allergic rash noted on trunk and arms, pruritic. Controlled with hydroxizine. - pt was on high dose Solumedrol 60mg TID for this. Will begin taper per pharm recs: continue 60mg BID today and tomorrow, will then switch to PO Prednisone 50 BID 04/03/17 for 3 days, then decrease by 10 mg q3days until finished. New diagnosis of Type 2 DM - pt has had slow weight gain since 2004, and symptoms of polyuria/polydipsia more recently. - initiating steroid taper to help with high BS in hospital (200s). - ordering addition of Lantus to help correct BS. Leg swelling - stable, chronic stasis of lower extremities, LT>>RT. Pt c/o cramping quality to RT calf which is not new for her, but is persistent. Has h/o DVT. - Doppler of LLE and RLE wnl, no evidence of DVT. - Pt reports feeling less pain in calf after stretching and moving it more while in bed. DVT ppx - continue lovenox - SCD's Code status - FULL Disposition - pt lives at home with and 2 teenage kids. Anticipate DC back home when medically ready. Pt's family is currently on vacation till Friday. - will go home with Trilogy machine, antibiotics and steroid taper. Will also go home with diabetic medication. Continued [facility] stay due to: multiple IV medications needed Discharge planning: home Reviewed: Pt Seen/Exam by Me History redness better today feels lasix has helped with edema as well Constitutional: denies: fever Respiratory: negative: short of breath Cardiovascular: denies chest pain Gastrointestinal/Abdominal: negative: abdominal pain General Appearance: no apparent distress Respiratory: lungs clear, no respiratory distress Cardiovascular: regular rate, rhythm Extremities: other (both lower extremity and lower abd pannus with improved edema today) Neurologic/Psychiatric: alert, oriented x 3 Assessment/Plan Resident Physician Supervision Note: I was present with Dr. Rader in bedside. I verified the nath history and physical, reviewed labs and image studies, discussed the case with the resident and agree with the findings and care plan.
--- NOTE | 2017-04-01 15:06 | Infectious Disease Progress Nt ---
Progress Note Date of Service Apr 01, 2017. Subjective Pt evaluation today including: conversation w/ patient, physical exam, chart review, lab review, review of studies, conversation w/ bus info consultant, review of inpatient medication list Offers no new complaints today. Abdominal pain less. No fever. Less short of breath. All Other Systems: Reviewed and Negative Medications Current Inpatient Medications Medications (Trade) Dose Ordered Sig/Everett Route Start Time Stop Time Status Last Admin Dose Admin Acetaminophen (Tylenol Tab) 650 mg Q4H PRN PO 03/22/17 03:15 04/21/17 03:14 03/30/17 08:32 650 MG Polyethylene (Miralax Powder Packet) 17 gm DAILY PRN PO 03/22/17 03:15 04/21/17 03:14 Ondansetron HCl (Zofran Inj) 4 mg Q6H PRN IV 03/22/17 03:15 04/21/17 03:14 03/31/17 08:10 4 MG Lactobacillus Acidophilus (Floranex Tab) 4 tab TIDM PO 03/22/17 08:00 04/21/17 07:59 04/01/17 11:17 4 TAB Insulin Aspart (novoLOG ASPART) SLIDING SCALE G... ACHS SC 03/22/17 07:00 04/21/17 06:59 04/01/17 12:10 4 UNITS Glucose (Glucose 40% Gel) 15-30 GRAMS 15 GRAMS... UD PRN PO 03/22/17 05:45 04/21/17 05:44 Glucose (Glucose Chew Tab) 4-8 Tablets 4 Tabl... UD PRN PO 03/22/17 05:45 04/21/17 05:44 Dextrose (Dextrose 50% 50ML Syringe) 25-50ML OF 50% DW IV FOR... UD PRN IV 03/22/17 05:45 04/21/17 05:44 Glucagon (Glucagon Inj) 1 mg UD PRN SQ 03/22/17 05:45 04/21/17 05:44 Clotrimazole (Clotrimazole Vag Crm) 1 appln HS PV 03/26/17 21:00 04/02/17 20:59 03/31/17 20:37 1 APPLN Enoxaparin Sodium (Lovenox Inj) 40 mg QAM SQ 03/28/17 09:00 04/27/17 08:59 04/01/17 07:44 40 MG Miconazole Nitrate (Desenex Powder) 1 appln BID EXT 03/28/17 21:00 04/27/17 20:59 04/01/17 07:45 1 APPLN Hydroxyzine HCl (Vistaril Tab) 25 mg Q6H PRN PO 03/30/17 16:15 04/29/17 16:14 04/01/17 07:45 25 MG Levofloxacin (Levaquin Tab) 500 mg DAILY@11 PO 04/01/17 16:00 04/11/17 10:59 Methylprednisolone Sodium Succinate 60 mg/Syringe 0.96 ml @ 1.5 mls/min Q12H IV 04/01/17 21:00 04/02/17 21:01 Objective Vital Signs Date Time Temp Pulse Resp B/P (MAP) Pulse Ox O2 Delivery O2 Flow Rate FiO2 04/01/17 12:10 Oxymask 5.0 04/01/17 11:10 36.8 85 24 170/88 (115) 97 168/108 (128) 04/01/17 08:00 Oxymask 5.0 04/01/17 07:48 36.9 94 23 134/81 (98) 98 BiPAP 04/01/17 04:14 36.5 61 20 122/71 (88) 99 CPAP 70 04/01/17 04:00 Nasal Cannula 2.0 04/01/17 02:40 66 97 10.0 04/01/17 00:00 Nasal Cannula 2.0 03/31/17 23:41 36.7 88 30 151/92 (111) 90 Oxymask 3.0 03/31/17 20:00 Room Air 2.0 Oxymask 03/31/17 19:36 36.6 102 24 157/104 (121) 90 165/129 (141) 03/31/17 16:00 Room Air 2.0 Oxymask 03/31/17 15:51 37.1 89 20 166/91 (116) 96 Oxymask 6.0 Physical Exam General Appearance: WD/WN, no apparent distress Eyes: normal inspection, sclerae normal ENT: normal ENT inspection, pharynx normal Neck: supple, no adenopathy, trachea midline Respiratory/Chest: lungs clear, normal breath sounds, no respiratory distress Cardiovascular: regular rate, rhythm, no gallop, no murmur Abdomen: normal bowel sounds, soft, no organomegaly, + tenderness (Mild lower) Extremities: non-tender, no calf tenderness Neurologic/Psychiatric: alert, oriented x 3 Skin: normal color, no rash, + pertinent finding (Cellulitis improving) Lymphatic: no adenopathy Laboratory Results Last 24 Hours Test 03/31/17 15:54 03/31/17 20:47 04/01/17 05:28 04/01/17 06:27 Bedside Glucose 263 mg/dl 210 mg/dl 196 mg/dl White Blood Count 16.84 K/uL Red Blood Count 4.72 M/uL Hemoglobin 13.6 g/dL Hematocrit 42.7 % Mean Corpuscular Volume 90.5 fL Mean Corpuscular Hemoglobin 28.8 pg Mean Corpuscular Hemoglobin Concent 31.9 g/dl RDW Standard Deviation 47.6 fL RDW Coefficient of Variation 14.5 % Platelet Count 343 K/uL Mean Platelet Volume 10.4 fL Sodium Level 138 mmol/L Potassium Level 4.4 mmol/L Chloride Level 101 mmol/L Carbon Dioxide Level 30 mmol/L Anion Gap 7.0 mmol/L Blood Urea Nitrogen 15 mg/dl Creatinine 0.88 mg/dl Est Creatinine Clear Calc Drug Dose 122.7 ml/min Estimated GFR () 94.6 Estimated GFR (Non- 81.6 BUN/Creatinine Ratio 16.8 Random Glucose 206 mg/dl Calcium Level 9.0 mg/dl Test 04/01/17 11:30 Bedside Glucose 203 mg/dl Assessment and Plan 41-year-old female with history of recurrent lower extremity cellulitis, now with lower quadrant and groin cellulitis with superficial draining abscess with P. mirabilis. Patient appears to be improving on current regimen, will discuss transition to oral antibiotics with hospitalist service. Will continue to follow.
[2017-04-01] MEDS: LEVOFLOXACIN 500 MG TAB PO SCH (16:40)
[2017-04-01] MEDS: CLOTRIMAZOLE VAG CR 45 GM TUBE PV SCH (20:42)
[2017-04-01] MEDS ORDERED: METHYLPREDNISOLONE IV 60 MG in SYRINGE 0 ML IV SCH (21:00)
[2017-04-01 21:16] LABS: ARTERIAL BLOOD GAS BASE EXCESS 5.3 mEq/L (-9-1.8); ARTERIAL BLOOD GAS HCO3 30 mmol/L (19-24); ARTERIAL BLOOD GAS PO2 87 mm/Hg (80-95); ARTERIAL BLOOD GAS pH 7.46 (7.35-7.45)
[2017-04-01 21:17] LABS: ALLEN TEST POS (POS); O2 ADMINISTRATION 5 L
[2017-04-02] VITALS (12 sets, daily range): BP systolic 134–185; BP diastolic 70–118; PULSE 55–96; TEMP 36.4–36.8; O2SAT 92–99; Ht 167.6 cm; Wt 148.2 kg
--- NOTE | 2017-04-02 06:55 | Family Medicine Progress Note ---
Progress Note Date of Service Apr 02, 2017. Subjective Pt evaluation today including: conversation w/ patient, physical exam, chart review, lab review Voiding: no voiding problems Pt reports feeling well today, and is using her oxymask without any issues. Pt denies pain anywhere, but says she feels more puffy today. Pt reports sleeping well and eating well. Constitutional: No fever, No chills, No sweats Respiratory: No cough, No sputum, No shortness of breath, No dyspnea at rest Cardiovascular: No chest pain, No palpitations Female : No dysuria Psychiatric: + depression symptoms (pt reports feeling down because of an argument with her , she denies suicidality.) Skin: No itch Medications Current Inpatient Medications Medications (Trade) Dose Ordered Sig/Everett Route Start Time Stop Time Status Last Admin Dose Admin Acetaminophen (Tylenol Tab) 650 mg Q4H PRN PO 03/22/17 03:15 04/21/17 03:14 03/30/17 08:32 650 MG Polyethylene (Miralax Powder Packet) 17 gm DAILY PRN PO 03/22/17 03:15 04/21/17 03:14 Ondansetron HCl (Zofran Inj) 4 mg Q6H PRN IV 03/22/17 03:15 04/21/17 03:14 03/31/17 08:10 4 MG Lactobacillus Acidophilus (Floranex Tab) 4 tab TIDM PO 03/22/17 08:00 04/21/17 07:59 04/02/17 07:54 4 TAB Insulin Aspart (novoLOG ASPART) SLIDING SCALE G... ACHS SC 03/22/17 07:00 04/21/17 06:59 04/01/17 17:49 8 UNITS Glucose (Glucose 40% Gel) 15-30 GRAMS 15 GRAMS... UD PRN PO 03/22/17 05:45 04/21/17 05:44 Glucose (Glucose Chew Tab) 4-8 Tablets 4 Tabl... UD PRN PO 03/22/17 05:45 04/21/17 05:44 Dextrose (Dextrose 50% 50ML Syringe) 25-50ML OF 50% DW IV FOR... UD PRN IV 03/22/17 05:45 04/21/17 05:44 Glucagon (Glucagon Inj) 1 mg UD PRN SQ 03/22/17 05:45 04/21/17 05:44 Clotrimazole (Clotrimazole Vag Crm) 1 appln HS PV 03/26/17 21:00 04/02/17 20:59 04/01/17 20:42 1 APPLN Enoxaparin Sodium (Lovenox Inj) 40 mg QAM SQ 03/28/17 09:00 04/27/17 08:59 04/02/17 07:53 40 MG Miconazole Nitrate (Desenex Powder) 1 appln BID EXT 03/28/17 21:00 04/27/17 20:59 04/02/17 07:54 1 APPLN Hydroxyzine HCl (Vistaril Tab) 25 mg Q6H PRN PO 03/30/17 16:15 04/29/17 16:14 04/01/17 07:45 25 MG Levofloxacin (Levaquin Tab) 500 mg DAILY@11 PO 04/01/17 16:00 04/11/17 10:59 04/01/17 16:40 500 MG Prednisone (PredniSONE TAB) 40 mg DAILY PO 04/03/17 09:00 05/03/17 08:59 Furosemide 40 mg/ Syringe 4 ml @ 4 mls/min DAILY IV 04/03/17 09:00 05/03/17 08:59 Objective Physical Exam General Appearance: WD/WN, no apparent distress, + obese Eyes: normal inspection, PERRL, EOMI Respiratory/Chest: lungs clear, normal breath sounds, no respiratory distress, no accessory muscle use Cardiovascular: regular rate, rhythm, no gallop, no JVD Abdomen: normal bowel sounds Skin: warm/dry, no rash, + pertinent finding (lower abdominal wall erythema and warmth; erythema and warmth in LE b/l with 2x2 bandage on lower RT perez, healing blister.) Laboratory Results 04/02/17 07:55 04/02/17 07:55 Test 04/02/17 06:52 04/02/17 07:39 04/02/17 07:55 Bedside Glucose 112 mg/dl (70-90) Arterial Blood pH 7.43 (7.35-7.45) Arterial Blood Partial Pressure CO2 48 mmHg (35-46) Arterial Blood Partial Pressure O2 92 mm/Hg (80-95) Arterial Blood HCO3 32 mmol/L (19-24) Arterial Blood Oxygen Saturation 97.1 % (90-95) Arterial Blood Base Excess 6.2 mEq/L (-9-1.8) Arterial Blood Gas Delivery FIO2 50% Lyle Test POS (POS) Red Blood Count 4.68 M/uL (4.2-5.4) Mean Corpuscular Volume 90.2 fL (80-100) Mean Corpuscular Hemoglobin 29.5 pg (25-34) Mean Corpuscular Hemoglobin Concent 32.7 g/dl (32-36) RDW Standard Deviation 49.1 fL (36.4-46.3) RDW Coefficient of Variation 15.2 % (11.5-14.5) Mean Platelet Volume 10.5 fL (7.4-10.4) Anion Gap 6.0 mmol/L (3-11) Est Creatinine Clear Calc Drug Dose 140.3 ml/min Estimated GFR () 107.8 Estimated GFR (Non- 93.0 BUN/Creatinine Ratio 30.3 (10-20) Calcium Level 9.4 mg/dl (8.5-10.1) Assessment and Plan 41 y/o F with no PMHx and no established PCP admitted 03/22/17 for acute cellulitis of lower abdomen. Cellulitis - lower abdominal area and both legs. - per ID, lesion is positive for Proteus mirabilis - pansensitive to antibiotics. - area of infection appears to be improving as of today. Per ID Dr. Sanchez switching to PO Levoquin. - Underlying venous stasis likely contributing. Erythema worse today likely from worsening venous stasis from sitting in chair all day yesterday - Continue IV lasix Hypoxic/Hypercapnic respiratory failure secondary to Sleep apnea/Obesity hypoventilation syndrome - continue CPAP while sleeping, marked improvement in O2 sats overnight (98-99). - PFT's show FEV1/FVC 84%, with no significant change with bronchodilator - no obstructive pattern. 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 - Will require home sleep study in outpatient. - taper steroids Rash - improving - non specific/allergic rash noted on trunk and arms, pruritic. Controlled with hydroxizine. - pt was on high dose Solumedrol 60mg TID for this. Will begin taper per pharm recs: continue 60mg BID today and tomorrow, will then switch to PO Prednisone 50 BID 04/03/17 for 3 days, then decrease by 10 mg q3days until finished. New diagnosis of Type 2 DM - pt has had slow weight gain since 2004, and symptoms of polyuria/polydipsia more recently. - taper steroids. - ordering addition of Lantus to help correct BS. - ordered Diabetic education Leg swelling - stable, chronic stasis of lower extremities, LT>>RT. Pt c/o cramping quality to RT calf which is not new for her, but is persistent. Has h/o DVT. - Doppler of LLE and RLE wnl, no evidence of DVT. - Pt reports feeling less pain in calf after stretching and moving it more while in bed. - ordered Lasix x1 today to help lessen edema. DVT ppx - continue lovenox - SCD's Code status - FULL Disposition - pt lives at home with and 2 teenage kids. Anticipate DC back home when medically ready. Pt's family is currently on vacation till Friday. - will go home with BiPap machine, antibiotics and steroid taper. Will also go home with diabetic medication. Continued [facility] stay due to: multiple IV medications needed Discharge planning: home Reviewed: Pt Seen/Exam by Me History redness worse today requiring 5L oxygen while laying in bed Constitutional: denies: fever Respiratory: negative: short of breath Cardiovascular: denies chest pain General Appearance: no apparent distress Respiratory: no respiratory distress Cardiovascular: regular rate, rhythm Neurologic/Psychiatric: alert, oriented x 3 Skin Characteristics: other (erythema in lower abdomen pannus and legs worse today) Assessment/Plan Resident Physician Supervision Note: I was present with Dr. Rader in bedside. I verified the nath history and physical, reviewed labs and image studies, discussed the case with the resident and agree with the findings and care plan.
[2017-04-02] MEDS: ENOXAPARIN 40 MG/0.4 ML SYR SQ SCH (07:53)
[2017-04-02] MEDS: LACTOBACILLUS ACIDOPHILUS (FLORANEX) TAB PO SCH ×3 (07:54→16:53)
[2017-04-02] MEDS: MICONAZOLE NITRATE POWDER 43 GM EXT SCH ×2 (07:54→21:00)
[2017-04-02] MEDS ORDERED: METHYLPREDNISOLONE IV 40 MG in SYRINGE 0 ML IV SCH (08:00)
[2017-04-02 08:06] LABS: HEMATOCRIT 42.2 % (37-47); MEAN CELL VOLUME 90.2 fL (80-100); MEAN CORPUSCULAR HEMOGLOBIN 29.5 pg (25-34); MEAN CORPUSCULAR HGB CONC 32.7 g/dl (32-36); MEAN PLATELET VOLUME 10.5 fL (7.4-10.4); PLATELET COUNT 295 K/uL (130-400); RED BLOOD COUNT 4.68 M/uL (4.2-5.4); WHITE BLOOD COUNT 15.35 K/uL (4.8-10.8)
[2017-04-02 08:07] LABS: ARTERIAL BLD GAS O2 SATURATION 97.1 % (90-95); ARTERIAL BLOOD GAS BASE EXCESS 6.2 mEq/L (-9-1.8); ARTERIAL BLOOD GAS HCO3 32 mmol/L (19-24); ARTERIAL BLOOD GAS PO2 92 mm/Hg (80-95); ARTERIAL BLOOD GAS pH 7.43 (7.35-7.45)
[2017-04-02 08:08] LABS: ALLEN TEST POS (POS); O2 ADMINISTRATION FIO2 50%
[2017-04-02] MEDS: INSULIN ASPART 100 UNITS/ML 3 ML PEN SC SCH ×4 (08:28→21:00)
[2017-04-02 08:48] LABS: BUN/CREATININE RATIO 30.3 (10-20); CALCIUM 9.4 mg/dl (8.5-10.1); CREATININE 0.79 mg/dl (0.60-1.20)
[2017-04-02] MEDS ORDERED: FUROSEMIDE INJ 40 MG in SYRINGE 0 ML IV ONE (09:30)
[2017-04-02] MEDS: LEVOFLOXACIN 500 MG TAB PO SCH (11:42)
--- NOTE | 2017-04-02 12:32 | Infectious Disease Progress Nt ---
Progress Note Date of Service Apr 02, 2017. Subjective Pt evaluation today including: conversation w/ patient, physical exam, chart review, lab review, review of studies, conversation w/ senior application security consultant, review of inpatient medication list Patient feeling better. No fever. Abdominal pain less. No increase in redness or swelling. No worsening shortness of breath. All Other Systems: Reviewed and Negative Medications Current Inpatient Medications Medications (Trade) Dose Ordered Sig/Everett Route Start Time Stop Time Status Last Admin Dose Admin Acetaminophen (Tylenol Tab) 650 mg Q4H PRN PO 03/22/17 03:15 04/21/17 03:14 03/30/17 08:32 650 MG Polyethylene (Miralax Powder Packet) 17 gm DAILY PRN PO 03/22/17 03:15 04/21/17 03:14 Ondansetron HCl (Zofran Inj) 4 mg Q6H PRN IV 03/22/17 03:15 04/21/17 03:14 03/31/17 08:10 4 MG Lactobacillus Acidophilus (Floranex Tab) 4 tab TIDM PO 03/22/17 08:00 04/21/17 07:59 04/02/17 11:42 4 TAB Insulin Aspart (novoLOG ASPART) SLIDING SCALE G... ACHS SC 03/22/17 07:00 04/21/17 06:59 04/02/17 11:45 11 UNITS Glucose (Glucose 40% Gel) 15-30 GRAMS 15 GRAMS... UD PRN PO 03/22/17 05:45 04/21/17 05:44 Glucose (Glucose Chew Tab) 4-8 Tablets 4 Tabl... UD PRN PO 03/22/17 05:45 04/21/17 05:44 Dextrose (Dextrose 50% 50ML Syringe) 25-50ML OF 50% DW IV FOR... UD PRN IV 03/22/17 05:45 04/21/17 05:44 Glucagon (Glucagon Inj) 1 mg UD PRN SQ 03/22/17 05:45 04/21/17 05:44 Clotrimazole (Clotrimazole Vag Crm) 1 appln HS PV 03/26/17 21:00 04/02/17 20:59 04/01/17 20:42 1 APPLN Enoxaparin Sodium (Lovenox Inj) 40 mg QAM SQ 03/28/17 09:00 04/27/17 08:59 04/02/17 07:53 40 MG Miconazole Nitrate (Desenex Powder) 1 appln BID EXT 03/28/17 21:00 04/27/17 20:59 04/02/17 07:54 1 APPLN Hydroxyzine HCl (Vistaril Tab) 25 mg Q6H PRN PO 03/30/17 16:15 04/29/17 16:14 04/01/17 07:45 25 MG Levofloxacin (Levaquin Tab) 500 mg DAILY@11 PO 04/01/17 16:00 04/11/17 10:59 04/02/17 11:42 500 MG Prednisone (PredniSONE TAB) 40 mg DAILY PO 04/03/17 09:00 05/03/17 08:59 Furosemide 40 mg/ Syringe 4 ml @ 4 mls/min DAILY IV 04/03/17 09:00 05/03/17 08:59 Objective Vital Signs Date Time Temp Pulse Resp B/P (MAP) Pulse Ox O2 Delivery O2 Flow Rate FiO2 04/02/17 12:06 36.8 71 19 92 Nasal Cannula 3.0 04/02/17 12:00 97 Mask 5.0 04/02/17 11:48 143/100 (114) 04/02/17 08:00 96 Mask 5.0 04/02/17 07:02 36.6 58 21 142/75 (97) 99 BiPAP 04/02/17 04:15 36.4 55 18 134/70 (91) 99 BiPAP 04/02/17 04:00 Oxymask CPAP 04/02/17 03:16 65 98 50 04/01/17 23:59 149/100 (116) 04/01/17 23:59 Oxymask 5.0 04/01/17 22:55 36.3 76 18 144/112 (123) 96 Oxymask 5.0 04/01/17 20:00 92 Oxymask 04/01/17 19:42 36.7 101 18 165/111 (129) 92 Oxymask 5.0 04/01/17 16:00 91 Oxymask 2.0 04/01/17 15:45 36.6 103 18 135/86 (102) 91 Oxymask 2.0 Physical Exam General Appearance: WD/WN, no apparent distress Eyes: normal inspection, EOMI, sclerae normal ENT: normal ENT inspection, pharynx normal Neck: supple, no adenopathy, thyroid normal, trachea midline Respiratory/Chest: chest non-tender, lungs clear, normal breath sounds, no respiratory distress Cardiovascular: regular rate, rhythm, no gallop, no murmur Abdomen: normal bowel sounds, non tender, soft, no organomegaly Extremities: non-tender, no calf tenderness, + swelling Neurologic/Psychiatric: alert, oriented x 3 Skin: normal color, + pertinent finding ( Improving cellulitis) Lymphatic: no adenopathy Laboratory Results Last 24 Hours Test 04/01/17 16:15 04/01/17 20:17 04/01/17 21:02 04/02/17 06:52 Bedside Glucose 216 mg/dl 140 mg/dl 112 mg/dl Arterial Blood pH 7.46 Arterial Blood Partial Pressure CO2 43 mmHg Arterial Blood Partial Pressure O2 87 mm/Hg Arterial Blood HCO3 30 mmol/L Arterial Blood Oxygen Saturation 97.0 % Arterial Blood Base Excess 5.3 mEq/L Arterial Blood Gas Delivery 5 L Lyle Test POS Test 04/02/17 07:39 04/02/17 07:55 Arterial Blood pH 7.43 Arterial Blood Partial Pressure CO2 48 mmHg Arterial Blood Partial Pressure O2 92 mm/Hg Arterial Blood HCO3 32 mmol/L Arterial Blood Oxygen Saturation 97.1 % Arterial Blood Base Excess 6.2 mEq/L Arterial Blood Gas Delivery FIO2 50% Lyle Test POS White Blood Count 15.35 K/uL Red Blood Count 4.68 M/uL Hemoglobin 13.8 g/dL Hematocrit 42.2 % Mean Corpuscular Volume 90.2 fL Mean Corpuscular Hemoglobin 29.5 pg Mean Corpuscular Hemoglobin Concent 32.7 g/dl RDW Standard Deviation 49.1 fL RDW Coefficient of Variation 15.2 % Platelet Count 295 K/uL Mean Platelet Volume 10.5 fL Sodium Level 138 mmol/L Potassium Level 4.0 mmol/L Chloride Level 101 mmol/L Carbon Dioxide Level 31 mmol/L Anion Gap 6.0 mmol/L Blood Urea Nitrogen 24 mg/dl Creatinine 0.79 mg/dl Est Creatinine Clear Calc Drug Dose 140.3 ml/min Estimated GFR () 107.8 Estimated GFR (Non- 93.0 BUN/Creatinine Ratio 30.3 Random Glucose 105 mg/dl Calcium Level 9.4 mg/dl Assessment and Plan 41-year-old female with history of recurrent lower extremity cellulitis, now with lower quadrant and groin cellulitis with superficial draining abscess with P. mirabilis. Patient appears to be improving in feel patient can be transitioned to oral antibiotic with levofloxacin as discussed. Will continue to follow.
[2017-04-03] VITALS (8 sets, daily range): BP systolic 126–166; BP diastolic 99–102; PULSE 52–108; TEMP 36.6–36.7; O2SAT 91–99
[2017-04-03 05:55] LABS: HEMATOCRIT 44.6 % (37-47); MEAN CELL VOLUME 90.3 fL (80-100); MEAN CORPUSCULAR HEMOGLOBIN 28.1 pg (25-34); MEAN CORPUSCULAR HGB CONC 31.2 g/dl (32-36); MEAN PLATELET VOLUME 10.6 fL (7.4-10.4); PLATELET COUNT 275 K/uL (130-400); RED BLOOD COUNT 4.94 M/uL (4.2-5.4); WHITE BLOOD COUNT 10.52 K/uL (4.8-10.8)
[2017-04-03 06:22] LABS: CALCIUM 8.9 mg/dl (8.5-10.1); CREATININE 0.83 mg/dl (0.60-1.20); POTASSIUM 3.9 mmol/L (3.5-5.1)
[2017-04-03] MEDS: LACTOBACILLUS ACIDOPHILUS (FLORANEX) TAB PO SCH ×3 (08:05→16:48)
[2017-04-03] MEDS: MICONAZOLE NITRATE POWDER 43 GM EXT SCH (08:05)
[2017-04-03] MEDS: ENOXAPARIN 40 MG/0.4 ML SYR SQ SCH (08:06)
[2017-04-03] MEDS: INSULIN ASPART 100 UNITS/ML 3 ML PEN SC SCH ×3 (08:14→16:46)
--- NOTE | 2017-04-03 08:25 | Family Medicine Progress Note ---
Progress Note Date of Service Apr 03, 2017. Subjective Pt evaluation today including: conversation w/ patient, physical exam, chart review, lab review Voiding: no voiding problems Constitutional: No fever, No chills, No sweats Respiratory: No cough, No sputum, No dyspnea at rest Cardiovascular: No chest pain, No orthopnea, No palpitations Abdomen: No pain, No nausea, No vomiting, No diarrhea, No constipation Skin: + see HPI, No itch Additional Comments: Pt is up and alert, sitting in bed finishing breakfast. Pt reports no problems overnight, slept well and anticipating DC. Pt complains of some numbness in her toes and legs feeling "restless" but alleviated by moving her legs around while in bed. Pt states that her parents have offered to pick her up and have her stay with them until her and daughter return from beach vacation. Pt denies pain anywhere, and says her cellulitis on lower abdominal wall is less puffy and less itchy. Assessment and Plan 41 y/o F with no PMHx and no established PCP admitted 03/22/17 for acute cellulitis of lower abdomen. Cellulitis - lower abdominal area and both legs. - per ID, lesion is positive for Proteus mirabilis - pansensitive to antibiotics. - area of infection appears to be improving as of today. Per ID Dr. Sanchez switching to PO Levoquin. - Underlying venous stasis likely contributing. Erythema worse today likely from worsening venous stasis from sitting in chair all day yesterday - Continue IV lasix Hypoxic/Hypercapnic respiratory failure secondary to Sleep apnea/Obesity hypoventilation syndrome - continue CPAP while sleeping, marked improvement in O2 sats overnight (98-99). - PFT's show FEV1/FVC 84%, with no significant change with bronchodilator - no obstructive pattern. 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 - Will require home sleep study in outpatient. - taper steroids Rash - improving - non specific/allergic rash noted on trunk and arms, pruritic. Controlled with hydroxizine. - pt was on high dose Solumedrol 60mg TID for this. Will begin taper per pharm recs: continue 60mg BID today and tomorrow, will then switch to PO Prednisone 50 BID 04/03/17 for 3 days, then decrease by 10 mg q3days until finished. New diagnosis of Type 2 DM - pt has had slow weight gain since 2004, and symptoms of polyuria/polydipsia more recently. - taper steroids. - ordering addition of Lantus to help correct BS. - ordered Diabetic education Leg swelling - stable, chronic stasis of lower extremities, LT>>RT. Pt c/o cramping quality to RT calf which is not new for her, but is persistent. Has h/o DVT. - Doppler of LLE and RLE wnl, no evidence of DVT. - Pt reports feeling less pain in calf after stretching and moving it more while in bed. - ordered Lasix x1 today to help lessen edema. DVT ppx - continue lovenox - SCD's Code status - FULL Disposition - pt lives at home with and 2 teenage kids. Anticipate DC back home when medically ready. Pt's family is currently on vacation till Friday. - will go home with BiPap machine, antibiotics and steroid taper. Will also go home with diabetic medication.
[2017-04-03] MEDS ORDERED: FUROSEMIDE INJ 40 MG in SYRINGE 0 ML IV SCH (09:00)
[2017-04-03] MEDS: LEVOFLOXACIN 500 MG TAB PO SCH (11:50)
--- NOTE | 2017-04-03 13:31 | Infectious Disease Progress Nt ---
Progress Note Date of Service Apr 03, 2017. Subjective Pt evaluation today including: conversation w/ patient, physical exam, chart review, lab review, review of studies, conversation w/ reservoir engineering consultant, review of inpatient medication list Improving daily. Abdominal pain less. No fever. Tolerating Abx. All Other Systems: Reviewed and Negative Medications Current Inpatient Medications Medications (Trade) Dose Ordered Sig/Everett Route Start Time Stop Time Status Last Admin Dose Admin Acetaminophen (Tylenol Tab) 650 mg Q4H PRN PO 03/22/17 03:15 04/21/17 03:14 03/30/17 08:32 650 MG Polyethylene (Miralax Powder Packet) 17 gm DAILY PRN PO 03/22/17 03:15 04/21/17 03:14 Ondansetron HCl (Zofran Inj) 4 mg Q6H PRN IV 03/22/17 03:15 04/21/17 03:14 03/31/17 08:10 4 MG Lactobacillus Acidophilus (Floranex Tab) 4 tab TIDM PO 03/22/17 08:00 04/21/17 07:59 04/03/17 11:50 4 TAB Insulin Aspart (novoLOG ASPART) SLIDING SCALE G... ACHS SC 03/22/17 07:00 04/21/17 06:59 04/03/17 11:52 5 UNITS Glucose (Glucose 40% Gel) 15-30 GRAMS 15 GRAMS... UD PRN PO 03/22/17 05:45 04/21/17 05:44 Glucose (Glucose Chew Tab) 4-8 Tablets 4 Tabl... UD PRN PO 03/22/17 05:45 04/21/17 05:44 Dextrose (Dextrose 50% 50ML Syringe) 25-50ML OF 50% DW IV FOR... UD PRN IV 03/22/17 05:45 04/21/17 05:44 Glucagon (Glucagon Inj) 1 mg UD PRN SQ 03/22/17 05:45 04/21/17 05:44 Enoxaparin Sodium (Lovenox Inj) 40 mg QAM SQ 03/28/17 09:00 04/27/17 08:59 04/03/17 08:06 40 MG Miconazole Nitrate (Desenex Powder) 1 appln BID EXT 03/28/17 21:00 04/27/17 20:59 04/03/17 08:05 1 APPLN Hydroxyzine HCl (Vistaril Tab) 25 mg Q6H PRN PO 03/30/17 16:15 04/29/17 16:14 04/01/17 07:45 25 MG Levofloxacin (Levaquin Tab) 500 mg DAILY@11 PO 04/01/17 16:00 04/11/17 10:59 04/03/17 11:50 500 MG Prednisone (PredniSONE TAB) 40 mg DAILY PO 04/03/17 09:00 05/03/17 08:59 04/03/17 08:05 40 MG Furosemide 40 mg/ Syringe 4 ml @ 4 mls/min DAILY IV 04/03/17 09:00 05/03/17 08:59 04/03/17 08:06 4 MLS/MIN Objective Vital Signs Date Time Temp Pulse Resp B/P (MAP) Pulse Ox O2 Delivery O2 Flow Rate FiO2 04/03/17 12:16 36.7 92 20 126/99 (108) 92 04/03/17 12:00 95 Room Air 04/03/17 08:03 36.7 84 21 149/99 (116) 98 BiPAP 04/03/17 08:00 96 Room Air 04/03/17 05:30 52 99 50 04/03/17 04:00 BiPAP 50 04/03/17 03:51 36.6 85 18 155/101 (119) 91 Room Air 04/03/17 00:00 Room Air 04/03/17 00:00 36.7 108 20 166/102 (123) 96 Room Air 04/02/17 20:00 94 Room Air 5.0 04/02/17 19:32 36.7 96 22 185/118 (140) 94 Room Air 04/02/17 16:00 92 Oxymask 5.0 04/02/17 15:53 36.6 88 22 149/104 (119) 92 Oxymask 5.0 Physical Exam General Appearance: WD/WN, no apparent distress Eyes: normal inspection, sclerae normal ENT: normal ENT inspection, pharynx normal Neck: supple, no adenopathy, trachea midline Respiratory/Chest: lungs clear, normal breath sounds, no respiratory distress Cardiovascular: regular rate, rhythm, no gallop, no murmur Abdomen: normal bowel sounds, non tender, soft, no organomegaly Extremities: non-tender, no calf tenderness Neurologic/Psychiatric: alert, oriented x 3 Skin: normal color, no rash, + pertinent finding (improving cellulitis) Lymphatic: no adenopathy Laboratory Results Last 24 Hours Test 04/02/17 16:10 04/02/17 20:19 04/03/17 05:28 04/03/17 06:22 Bedside Glucose 124 mg/dl 203 mg/dl 92 mg/dl White Blood Count 10.52 K/uL Red Blood Count 4.94 M/uL Hemoglobin 13.9 g/dL Hematocrit 44.6 % Mean Corpuscular Volume 90.3 fL Mean Corpuscular Hemoglobin 28.1 pg Mean Corpuscular Hemoglobin Concent 31.2 g/dl RDW Standard Deviation 49.6 fL RDW Coefficient of Variation 15.0 % Platelet Count 275 K/uL Mean Platelet Volume 10.6 fL Sodium Level 141 mmol/L Potassium Level 3.9 mmol/L Chloride Level 104 mmol/L Carbon Dioxide Level 32 mmol/L Anion Gap 5.0 mmol/L Blood Urea Nitrogen 24 mg/dl Creatinine 0.83 mg/dl Est Creatinine Clear Calc Drug Dose 133.5 ml/min Estimated GFR () 101.5 Estimated GFR (Non- 87.6 BUN/Creatinine Ratio 29.0 Random Glucose 104 mg/dl Calcium Level 8.9 mg/dl Test 04/03/17 11:05 Bedside Glucose 134 mg/dl Assessment and Plan 41-year-old female with history of recurrent lower extremity cellulitis, now with lower quadrant and groin cellulitis with superficial draining abscess with P. mirabilis. Patient now on levofloxacin to complete 10 days Rx.
[2017-04-03] MEDS ORDERED: METF500T5 PO (15:11)
[2017-04-03] MEDS ORDERED: PRED10TA PO (15:11)
[2017-04-03] MEDS ORDERED: LVQ500 PO (15:11)
--- NOTE | 2017-04-03 15:33 | Discharge Instructions ---
Discharge Instructions Date of Service Apr 03, 2017. Admission Reason for Admission: Abdominal Wall Cellulitis Discharge Discharge Diagnosis / Problem: Abdominal wall cellulitis Discharge Goals Goal(s): Decrease discomfort, Improve function, Increase independence, Improve nutritional status, Learn about illness Activity Recommendations Activity Limitations: per Instructions/Follow-up section . Instructions / Follow-Up Instructions / Follow-Up 1. You are being given Levofloxacin for your cellulitis. Please finish these pills through next Friday as directed. Talk with your doctor at your appointment on Friday about your cellulitis. If worsening, your doctor may prescribe a longer course of antibiotics as she sees fit. 2. For itching and inflammation, you are being given Prednisone. It is important that you take these tapered doses as directed, because your body has been treated with enough so as to become dependent on the medicine temporarily. Pills are only 10mg each, so you will have to take multiple pills each day as follows: Day 1-2: take 4 pills each day Days 3-5: take 3 pills each day Days 6-8: take 2 pills each day Days 9-11: take 1 pill each day 3. We diagnosed you with Diabetes Type 2 during your stay here. You are being given Metformin for this, please take with food. Talk with your doctor about your diabetes. 4. You have edema, and this makes your cellulitis worse. Phil compression stockings are available over the counter, please get a pair for yourself and wear as directed every day. 5. We diagnosed you with Obstructive Sleep Apnea, which is when you stop breathing at times while you sleep. We recommend that your doctor order a sleep study for you. 6. You are scheduled a follow up appointment with Dr. Jakob Anguiano. Please make sure to discuss your stay here at the hospital completely and ask any further questions that you may have. Current Hospital Diet Patient's current hospital diet: Diabetes Type 2 Diet Discharge Diet Recommended Diet: Diabetes Type 2 Diet Pending Studies Studies pending at discharge: no Laboratory Results Hemoglobin A1c Test 03/21/17 23:30 Range/Units Estimated Average Glucose 154 mg/dl Hemoglobin A1c 7.0 H 4.5-5.6 % Medical Emergencies . Who to Call and When: Medical Emergencies: If at any time you feel your situation is an emergency, please call 911 immediately. . Non-Emergent Contact Non-Emergency issues call your: Primary Care Provider . . "Provider Documentation" section prepared by Joelle Rader. . VTE Core Measure Inpt VTE Proph given/why not?: Enoxaparin (Lovenox)SQ, SCD's Resident Involvement: Resident Care Provided Care Provided: Adult Hospital Medicine
--- NOTE | 2017-04-03 15:43 | Discharge Summary ---
Discharge Summary Date of Service Apr 03, 2017. (Joelle Rader M.D.) Discharge Summary Admission Date: Mar 22, 2017 at 03:15 Discharge Date: Apr 03, 2017 Discharge Disposition: Home Principal Diagnosis: Abdominal Wall Cellulitis Problems/Secondary Diagnoses: New Diagnosis of Type 2 Diabetes, Obstructive Sleep Apnea (Joelle Rader M.D.) Medication Reconciliation New Medications: Metformin Hcl Er (Glucophage Er) 500 Mg Tab 1 TAB PO DAILY for 30 Days, #30 TAB 0 Refills Take with food. Prednisone (Prednisone) 10 Mg Tab 10 MG PO UD for 11 Days, #26 TAB 4 tabs x 2 days (40mg/day) 3 tabs x 3 days (30mg/day 2 tabs x 3 days (20mg/day) 1 tab x 3 days (10mg/day) Levofloxacin (Levofloxacin) 500 Mg Tab 500 MG PO DAILY@11 for 5 Days, #5 TAB 0 Refills Continued Medications: Acetaminophen (Tylenol) 500 Mg Tab 1000 MG PO PRN UD, TAB Ibuprofen (Advil) 200 Mg Tab 400 MG PO Q4H PRN for Pain, TAB Discharge Exam Subjective Pt evaluation today including: conversation w/ patient, physical exam, chart review, lab review Voiding: no voiding problems Constitutional: No fever, No chills, No sweats Respiratory: No cough, No sputum, No dyspnea at rest Cardiovascular: No chest pain, No orthopnea, No palpitations Abdomen: No pain, No nausea, No vomiting, No diarrhea, No constipation Skin: + see HPI, No itch Additional Comments: Pt is up and alert, sitting in bed finishing breakfast. Pt reports no problems overnight, slept well and anticipating DC. Pt complains of some numbness in her toes and legs feeling "restless" but alleviated by moving her legs around while in bed. Pt states that her parents have offered to pick her up and have her stay with them until her and daughter return from beach vacation. Pt denies pain anywhere, and says her cellulitis on lower abdominal wall is less puffy and less itchy. Physical Exam: General Appearance: WD/WN, no apparent distress, + obese Eyes: normal inspection, PERRL, EOMI Respiratory/Chest: lungs clear, normal breath sounds, no respiratory distress, no accessory muscle use Cardiovascular: regular rate, rhythm, no edema, no JVD, normal peripheral pulses Abdomen / GI: normal bowel sounds, soft Extremities: + inflammation (erythema and swelling present b/l, improved moderately since admission) Neurologic/Psychiatric: alert, normal mood/affect Skin: warm/dry, + pertinent finding (Joelle Rader M.D.) redness in lower abdomen and legs much improved leg swelling better as well has been using bipap at [facility] Review of Systems: Constitutional: No fever Respiratory: + shortness of breath (with exertion) Cardiovascular: No chest pain Abdomen: No pain Physical Exam: General Appearance: no apparent distress Respiratory/Chest: lungs clear, no respiratory distress Cardiovascular: regular rate, rhythm Skin: + pallor (erythema in lower abdomen and legs much improved) (Mallory Orta M.D.) Hospital Course 41 y/o F admitted for acute cellulitis of lower abdomen. Cellulitis of the lower anterior abdominal wall and bilateral lower legs - Area of infection appears to be improving as of today. Per ID Dr. Sanchez switching to PO Levaquin ending on Apr 08 - Underlying venous stasis likely contributing to cellulitis of lower legs. Erythema worse day of discharge likely from worsening venous stasis from sitting in chair all day yesterday Hypoxic/Hypercapnic respiratory failure secondary to Sleep apnea/Obesity hypoventilation syndrome - Continue BiPAP while sleeping, marked improvement in O2 sats when in use. - PFT's show FEV1/FVC 84%, with no significant change with bronchodilator - not an obstructive pattern. - Per Respiratory therapist, will be sent home with portable O2, 2L to be used during the day. - Will require home sleep study in outpatient. Truncal rash - improving - Non specific/allergic rash noted on trunk and arms, pruritic. Controlled with hydroxizine. - Pt was on high dose Solumedrol 60mg TID for this. Have begun taper with Prednione per pharm recs. Taper Prednisone thusly starting post discharge: Day 1-2: take 40mg each day Days 3-5: take 30mg each day Days 6-8: take 20mg each day Days 9-11: take 10mg each day New diagnosis of Type 2 DM - Pt has had slow weight gain since 2004, and symptoms of polyuria/polydipsia more recently. - Pt going home on Metformin XR 500mg OD. Increase to 1000 mg OD as tolerated. - Pt given Diabetic education Leg swelling - Stable, chronic stasis of lower extremities, LT>>RT. Pt c/o cramping quality to RT calf which is not new for her, but is persistent. Has h/o DVT. - Doppler of LLE and RLE wnl, no evidence of DVT. - Pt reports feeling less pain in calf today. - Ordered Lasix x1 to help lessen edema while in hospital. - Recommend pt elevates feet and lies supine after activity/exercise. Recommend low-salt diet. Code status - FULL Total Time Spent: Greater than 30 minutes This includes examination of the patient, discharge planning, medication reconciliation, and communication with other providers. (Joelle Rader M.D.) Resident Physician Supervision Note: I was present with Dr. Rader in bedside. I verified the nath history and physical, reviewed labs and image studies, discussed the case with the resident and agree with the findings and care plan. Total Time Spent: Greater than 30 minutes (Mallory Orta M.D.) Discharge Instructions Please refer to the electronic Patient Visit Report (Discharge Instructions) for additional information. (Joelle Rader M.D.) Additional Copies To Jakob Anguiano M.D. Resident Tracking Resident Involvement: Resident Care Provided Care Provided: Adult [facility] (Joelle Rader M.D.)
--- NOTE | 2017-04-07 07:46 | PULMONARY FUNCTION TEST ---
CLINICAL DATA: The patient is a 41-year-old female with a weight of 312 pounds and a height of 66 inches, referred for evaluation of dyspnea. Spirometry, pre and post bronchodilator was performed. FINDINGS: Prebronchodilator spirometry demonstrates very mild restrictive changes. FVC was 75% of predicted. FEV1 was 79% of predicted. [id number] was 103% of predicted. FEV1/FVC ratio was 105% of predicted. There was no significant change after inhaled bronchodilator. FVC improved 5% and FEV1 improved 4%. IMPRESSION: Very mild restrictive changes suggested, most likely secondary to the patient's weight. There is no evidence of obstructive airways disease and no significant improvement after inhaled bronchodilator.
== END 2017-04-03 16:54 | disposition home or self-care (01) | DRG 637 ==
LOC: C.EDB 22:53 → C.MSN 03-22 03:15 → ENRESERV 03-22 03:43 → C.2T 03-27 05:06 → ENRESERV 03-27 16:06 → C.MSW 03-27 16:51 → ENRESERV 03-30 15:29 → C.2E 03-30 16:17
PROVIDERS: ADMIT Family Medicine; ATTEND Family Medicine
DX: E11.628 Type 2 diabetes mellitus with other skin complications (principal); J96.01 Acute respiratory failure with hypoxia; J96.02 Acute respiratory failure with hypercapnia; E66.2 Morbid (severe) obesity with alveolar hypoventilation; Z68.43 Body mass index [BMI] 50.0-59.9, adult; L03.311 Cellulitis of abdominal wall; L03.116 Cellulitis of left lower limb; L03.115 Cellulitis of right lower limb; L02.211 Cutaneous abscess of abdominal wall; R30.0 Dysuria; B96.4 Proteus (mirabilis) (morganii) as the cause of diseases classified elsewhere; R00.0 Tachycardia, unspecified; R21 Rash and other nonspecific skin eruption; Z86.718 Personal history of other venous thrombosis and embolism; Z79.899 Other long term (current) drug therapy; Z79.2 Long term (current) use of antibiotics; I87.8 Other specified disorders of veins

== ENCOUNTER → 2017-04-21 | Outpatient (CLI) | payer OTHER ==
[~2017-04-21] MED LIST changes: +LVQ500 PO; +METF500T5 PO
[2017-04-21 17:28] LABS: BLOOD UREA NITROGEN 11 mg/dl (7-18); BUN/CREATININE RATIO 15.9 (10-20); CALCIUM 9.3 mg/dl (8.5-10.1); CARBON DIOXIDE 25 mmol/L (21-32); CHLORIDE 107 mmol/L (98-107); CREATININE 0.68 mg/dl (0.60-1.20); GLUCOSE 101 mg/dl (70-99); POTASSIUM 3.7 mmol/L (3.5-5.1); SODIUM 142 mmol/L (136-145)
[2017-04-21 17:31] LABS: RATIO 12.8 mcg/mg (0-30.0)
== END | disposition home or self-care (01) ==
LOC: C.LAB 15:21
PROVIDERS: ATTEND Student in an Organized Health Care Education/Training Program
DX: E11.9 Type 2 diabetes mellitus without complications (principal); R53.83 Other fatigue

== ENCOUNTER → 2017-05-29 | Outpatient (CLI) | payer OTHER ==
--- NOTE | 2017-05-30 06:01 | SPLIT NIGHT TECHNICIAN REPORT ---
[facility] Split Night Polysomnogram - Hydraulic Spinner Report Study date: 05/29/2017 Referring Physician: Dr. Geronimo Paz D.O. Name: NOHELIA CARRENO Hydraulic Spinner: Perla Ferrari [facility] [[email or web address]]. Date of : 1975 Height: 42 years, Height 170.18 cm Sex: Female Weight: 144.7 kgs Age: 42 BMI: Medications: 49.96 Lisinopril 10 mg, Metformin 1000 mg, Multi Vitamins Patient History 42 yr. old female here tonight for a split night sleep study. Patient has been on CPAP since a recent hospital stay, tonight is her first sleep study. Patients [place] Sleepiness Scale Score is 24/24. Test started on room air with ETC02. Parameters Monitored NPSG: E1-M2, E2-M1, Fp1-M2, Fp2-M1, F3-M2, F4-M2, F4-M1, C3-M2, C4-M2, C4-M1, O1-M2, O2-M2, O2-M1, T3-M2, T4-M1, P3-M2, P4-M1, CHIN1, CHIN2, HR, EKG, Legs, PFLOW, SNOR, FLOW, CFLOW, Tidal Volume, THOR, ABDO, SpO2, PLTH, CPRESS, ETCO2 Wave, ETCO2, pH SLEEP SUMMARY DATA DIAGNOSTIC TREATMENT Lights Out: 11:00:16 PM NONE Lights On: 1:11:46 AM 5:33:46 AM Total Recording Time (TRT): 131.9 min. 261.1 min. Total Sleep Time (TST): 98.0 min. 257.5 min. NREM Time: 98.0 min. 168.5 min. REM Time: 0.0 min. 89.0 min. Sleep Period Time (SPT): 120.5 min. 260.5 min. Sleep Efficiency (SE): 74 % 99 % Sleep Latency: 7.5 min. NONE min. Arousal Index: 69.2 3.7 PAP Treatment Levels: 6, 8, 10, 11, 12, 13 * Optimal Pressure(s) SLEEP STAGING DATA DIAGNOSTIC TREATMENT Duration (min) TST % Duration (min) TST % Stage Wake: 33.9 min. -- 3.6 min. -- WASO: 26.0 min. -- 3.0 min. -- NREM: 98.0 min. 100 % 168.5 min. 65 % Stage N1: 9.0 min. 9 % 5.0 min. 2 % Stage N2: 89.0 min. 91 % 57.0 min. 22 % Stage N3: 0.0 min. 0 % 106.5 min. 41 % REM: 0.0 min. 0 % 89.0 min. 35 % POSITIONAL DATA Event Count Index Event Count Index Supine: N/A N/A N/A N/A Supine NREM: N/A N/A N/A N/A Supine REM: N/A N/A N/A N/A Non-Supine: 169 102.2 53 12.3 Non-Supine NREM: 169 102.2 41 14.6 Non-Supine REM: N/A N/A 12 8.1 AROUSAL SUMMARY DATA: Event Count Index Event Count Index Apnea Arousals: 43 46.5 3 3.3 Hypopnea Arousals: 53 32.4 6 1.4 Snore Arousals: 13 8.0 2 0.5 PLM Arousals: 0 0.0 0 0.0 Non-Specific Arousals: 3 1.8 4 0.9 Total Arousals: 113 69.2 16 3.7 MYOCLONUS (PLM) Event Count Index Event Count Index PLM: 1 0.6 4 0.9 PLM AROUSAL: 0 0.0 0 0.0 PLM W/O AROUSAL 1 0.6 4 0.9 PLM W/RESP EVENT 0 0.0 0 0.0 MYOCLONUS (PLM) Event Count Index Event Count Index LM: 1 22.7 10 2.3 LM AROUSAL: 1 0.6 2 0.5 LM W/O AROUSAL LM W/RESP EVENT LM NON SPECIFIC 17 10.4 11 2.6 HEART RATE DATA DIAGNOSTIC TREATMENT Sleep (bpm): 92 85 REM (bpm): N/A 90 NREM (bpm): 72 88 Tachycardia Count: 0 0 Tachycardia Duration: 0.00 0 Bradycardia Count: 0 0 Bradycardia Duration: 0.00 0 DIAGNOSTIC PORTION TREATMENT PORTION RESPIRATORY DATA Event Count Index Event Count Index AHI: -- 102.2 -- 12.3 RDI: -- 103.5 -- 12 Obstructive Apnea: 76 46.5 14 3.3 Central Apnea: 0 0.0 0 0.0 Mixed Apnea: 0 0.0 0 0.0 Hypopnea: 91 55.7 39 9.1 RERA: 2 1.2 0 0.0 Total Apneas: 76 46.5 14 3.3 RESPIRATORY DATA REM NREM SLEEP REM NREM SLEEP Supine Position: Obstructive Apneas: N/A N/A N/A N/A N/A N/A Central Apneas: N/A N/A N/A N/A N/A N/A Mixed Apneas: N/A N/A N/A N/A N/A N/A Hypopneas: N/A N/A N/A N/A N/A N/A RERA N/A N/A N/A N/A N/A N/A Total Supine Events: N/A N/A N/A N/A N/A N/A Supine AHI: N/A N/A N/A N/A N/A N/A Supine RDI: N/A N/A N/A N/A N/A N/A REM NREM SLEEP REM NREM SLEEP Non-Supine Position: Obstructive Apneas: N/A 76 76 1 13 14 Central Apneas: N/A 0 0 0 0 0 Mixed Apneas: N/A 0 0 0 0 0 Hypopneas: N/A 91 91 11 28 39 RERA N/A 2 2 0 0 0 Total Supine Events: N/A 169 169 12 41 53 Supine AHI: N/A 102.2 102.2 8.1 14.6 12.3 Supine RDI: N/A 103.5 103.5 8.1 14.6 12.3 OXYGEN DESTAURATION DATA: Event Count Index Event Count Index REM Desaturations: N/A N/A 18 12.1 NREM Desaturations: 145 88.8 42 15.0 SNORE DATA DIAGNOSTIC TREATMENT Snore Time: 13.7 1:12:46 AM Snore TST%: 6 4 Snore Arousal Count: 13 2 Snore Arousal Index: 8.0 0.5 Desaturation Event Summary: Minimum %SpO2 Event Count Mean/Min/Max Duration(sec.) Desaturation Index % Time In Bed > 90 63 24.5 / 5.3 / 57.5 22.8 43.3 86 - 90 42 21.7 / 4.5 / 53.0 21.0 31.4 81 - 85 15 21.4 / 4.5 / 40.0 68.6 3.4 76 - 80 10 20.3 / 4.8 / 45.5 102.9 1.5 71 - 75 23 23.9 / 8.8 / 56.0 137.9 2.6 66 - 70 53 21.5 / 7.5 / 54.0 172.6 4.8 61 - 65 70 17.2 / 8.0 / 46.5 159.7 6.9 56 - 60 15 14.1 / 9.3 / 26.3 51.9 4.5 51 - 55 0 N/A 0.0 1.4 < 50 0 N/A 0.0 0.2 OXYGEN SATURATION DATA DIAGNOSTIC TREATMENT SpO2 Mean Sleep: 72 % 89 % SpO2 Mean REM: N/A % 90 % SpO2 Mean NREM: 72 % 88 % SpO2 Minimum Sleep: 47 % 56 % SpO2 Minimum REM: N/A % 75 % SpO2 Minimum NREM: 47 % 56 % Time Below 90% (TST): 77.4 63.8 Time Below 88% (TST): 72.3 28.6 Total REM NREM Awake <50% 0.6 min. 0.0 min. 0.6 min. 0.0 min. 51 - 60% 22.7 min. 0.0 min. 22.5 min. 0.2 min. 61 - 70% 44.7 min. 0.0 min. 43.9 min. 0.8 min. 71 - 80% 15.8 min. 0.9 min. 13.5 min. 1.5 min. 81 - 90% 133.2 min. 46.0 min. 76.3 min. 10.9 min. 91 - 100% 166.0 min. 42.1 min. 109.1 min. 14.8 min. Average 85 90 82 89 Minimum SpO2 47 75 47 57 Desaturation Event Index 32.5 12.1 42.1 19.2 # Desat. Events below 89% 202 16 178 8 Time(%) with Saturation below 89% 31.0 2.4 26.3 2.3 Time(min.) with Saturation below 89% 118.6 9.3 100.6 8.7 Recording Hydraulic Spinner Comments: MS. Carreno slept in the right, left, and supine positions. Tachycardia and PLMs noted. No bruxism noted. Snoring was noted and scored as a 4 on a scale of 0 through 5. (0=no snoring, 5=snoring loud enough to be heard through a closed door or down the english way) At 1:11 am MS. Carreno met specific Split-Night criteria during the diagnostic portion of this study. CPAP was initiated at +6 CMH2O and up-titrated to an optimal level of +12 CMH2O Cflex 2, which nearly eliminated all respiratory events and snoring. A small [employer] and [employer] Simplus was used during titration. MS. Carreno awoke to use the restroom once during the night. MS. Carreno stated, I had a bad headache early in the night. The final report will be interpreted and signed by a sleep physician. The completed physician report will then be placed in the patient medical record. Therapy Event: Therapy (cm H20) 0 6 8 10 11 12 13 Total Time at Pressure (min.) 131.9 7.9 13.1 35.8 82.7 42.9 78.7 TST at Pressure (min.) 98.0 7.8 13.1 35.3 81.2 42.9 77.2 # Periods 1 1 1 1 1 1 1 Sleep Onset (min.) 7.5 0.1 0.0 0.0 0.0 0.0 0.0 REM Onset (min.) N/A N/A N/A 2.6 0.0 27.6 0.0 Sleep Efficiency % 74 99 100 98 98 100 98 Wakefulness (%) 25.7 0.9 0.0 1.4 1.8 0.0 1.9 Wakefulness (min.) 33.9 0.1 0.0 0.5 1.5 0.0 1.5 NREM 1 (%) 6.8 19.1 0.0 1.4 3.0 0.0 0.6 NREM 1 (min.) 9.0 1.5 0.0 0.5 2.5 0.0 0.5 NREM 2 (%) 67.5 80.0 66.5 4.2 14.3 15.5 27.9 NREM 2 (min.) 89.0 6.3 8.7 1.5 11.9 6.6 22.0 NREM 3 (%) 0.0 0.0 33.5 3.1 55.0 49.0 43.8 NREM 3 (min.) 0.0 0.0 4.4 1.1 45.5 21.0 34.5 REM (%) 0.0 0.0 0.0 89.9 25.8 35.6 25.7 REM (min.) 0.0 0.0 0.0 32.2 21.3 15.3 20.2 # Arousals 113 6 3 2 3 0 2 Arousal Index 69.2 46.2 13.7 3.4 2.2 0.0 1.6 # Snore 189 26 68 33 501 31 14 Snore Index 115.7 200.1 311.7 56.1 370.2 43.4 10.9 AHI 102.2 123.1 64.2 6.8 5.2 8.4 4.7 AHI Supine N/A N/A N/A N/A N/A N/A N/A AHI Non-Supine 102.2 123.1 64.2 6.8 5.2 8.4 4.7 NREM AHI 102.2 123.1 64.2 38.6 6.0 4.3 1.1 REM AHI N/A N/A N/A 3.7 2.8 15.7 14.8 RDI 103.5 123.1 64.2 6.8 5.2 8.4 4.7 # Obstructive 76 12 0 0 1 0 1 # Central Ap 0 0 0 0 0 0 0 # Mixed 0 0 0 0 0 0 0 # Hypopneas 91 4 14 4 6 6 5 RERAS 2 0 0 0 0 0 0 Total Respiratory Events 169 16 14 4 7 6 6 Time Below SpO2 89.00% (min.) 74.8 5.9 13.1 9.4 3.6 2.1 1.0 Mean NREM SpO2 (%) 72 83 68 74 90 90 92 Mean REM SpO2 (%) N/A N/A N/A 89 90 91 91 Mean Sleep SpO2 (%) 72 83 68 88 90 90 91 Min NREM SpO2 (%) 47 68 56 58 83 86 89 Min REM SpO2 (%) N/A N/A N/A 75 86 86 85 Position Supine (min.) 0.0 0.0 0.0 0.0 0.0 0.0 0.0 Position Non-supine (min.) 98.0 7.8 13.1 35.3 81.2 42.9 77.2 LM Index Sleep 23.3 7.7 4.6 3.4 3.0 0.0 4.7 LM Index NREM 23.3 7.7 4.6 38.6 4.0 0.0 6.3 LM Index REM N/A N/A N/A 0.0 0.0 0.0 0.0 Mean Heart Rate (bpm) 92 80 97 80 85 85 86 Min Heart Rate (bpm) 56 62 77 58 59 67 65
--- NOTE | 2017-05-31 00:04 | POLYSOMNOGRAPH REPORT ---
CLINICAL DATA: A 42-year-old female with a BMI of 50, referred by Dr. Dionicio Paz for a split night sleep study. She has been on CPAP since her recent hospital stay. Her Brimley sleepiness score is 24/24. This was a split night study. SLEEP ARCHITECTURE: For the diagnostic portion of the study, total sleep period was 120.5 minutes. Total sleep time was 98 minutes, all non-REM sleep. Sleep latency was 7.5 minutes. Sleep efficiency was 74%. Arousal index was 69.2. Sleep consisted of stage N1 9%, and stage N2 91%. For the treatment portion of the study, sleep period was 260.5 minutes. Total sleep time was 257.5 minutes divided between 168.5 minutes of non-REM sleep and 89 minutes of REM sleep. Sleep latency was immediate. Sleep efficiency was 99%. Arousal index was 3.7. Sleep consisted of stage N1 2%, stage N2 22%, stage 3 41%, and REM 35%. AROUSAL DATA: Prior to treatment, 113 arousals were recorded for an index of 69.2 per hour. With treatment, 16 arousals were recorded for an index of 3.7 per hour. PERIODIC LIMB MOVEMENTS DATA: Prior to treatment, 17 limb movements during sleep were noted for an index of 10.4 per hour. During treatment, 11 limb movements were noted for an index of 2.6 per hour. ELECTROCARDIOGRAM: Heart rates ranged from 72-92 beats per minute. No arrhythmias were noted. RESPIRATORY DATA: Very severe sleep apnea was documented prior to treatment. The diagnostic AHI was 102.2. There were 76 obstructive apneic episodes and 91 hypopneic episodes. The mean AHI with treatment was 12.3. There were 14 obstructive apneic episodes and 39 hypopneic episodes. OXIMETRY DATA: Severe hypoxemia was seen prior to treatment. Oxygen melissa was 47% during non-REM sleep prior to treatment. Mean saturation for the treatment was 89%. [employer]'S COMMENTS AND TREATMENT SUMMARY: The patient slept in the right, left, and supine positions. Snoring was severe, rated 4 on a scale of 1-5. At 1:11 a.m. the patient met split night criteria. The patient used a small [employer] Simplus mask. She was started on 6 cm of water CPAP and was titrated for final pressure setting at 13 cm of water pressure, C-Flex setting #2. At her final pressure setting, patient slept for 77.2 minutes with an apnea-hypopnea index of 4.7 and with correction with a final pressure setting of 13 cm of water pressure at C-Flex setting #2. IMPRESSION: Very severe sleep apnea/hypopnea with severe nocturnal hypoxemia with an apnea-hypopnea index of 102.2 and oxygen melissa of 47% and corrected with CPAP at 13 cm of water pressure, C-Flex setting #2, utilizing a small [employer] Simplus mask. RECOMMENDATIONS: The patient should be placed on CPAP at 13 cm water pressure, C-flex setting #2 with the above-noted interface. Follow within 90 days to document efficacy and compliance is recommended. [facility] ISL[facility] PSYCHIATRIC CENTERJustine
== END | disposition home or self-care (01) ==
LOC: C.NEUR 21:00
PROVIDERS: ATTEND Family Medicine
DX: G47.30 Sleep apnea, unspecified (principal)

== ENCOUNTER → 2017-08-13 | Outpatient (CLI) | payer OTHER ==
--- NOTE | 2017-08-13 11:10 | DIAGNOSTIC IMAGING REPORT ---
ULTRASOUND OF THE PELVIS CLINICAL HISTORY: Heavy menses. COMPARISON STUDY: Pelvic CT dated 03/26/2017. TECHNIQUE: Real-time, grayscale, and color flow sonography of the pelvis is performed both transabdominally and endovaginally. Images are reviewed in the transverse and longitudinal planes. FINDINGS: Uterus: The uterus is normal in size and heterogeneous in echotexture, measuring 8.9 x 4.3 x 5.4 cm. Endometrium: The endometrium is normal in appearance, and the endometrial stripe is normal in thickness measuring up to 0.5 cm. Ovaries: The right ovary was not visualized. Left ovary is normal in appearance, measuring 2.9 x 1.8 x 1.5 cm. Normal Doppler waveforms are shown within the right ovary. Pelvis: There is no free fluid in the cul-de-sac. No concerning adnexal lesion is seen. IMPRESSION: 1. The uterus is normal in size and heterogeneous in echotexture. 2. The right ovary is normal in appearance. The left ovary was not visualized. 3. No adnexal abnormality is seen. Electronically signed by: Rafiq Majano M.D. 08/13/2017 11:09 AM Dictated Date/Time: 08/13/2017 11:07 AM
== END | disposition home or self-care (01) ==
LOC: C.ULTR 10:23
PROVIDERS: ATTEND Student in an Organized Health Care Education/Training Program
DX: N94.6 Dysmenorrhea, unspecified (principal); N92.0 Excessive and frequent menstruation with regular cycle

== ENCOUNTER 2017-10-17 12:28 | Emergency (ER) | payer OTHER ==
[~2017-10-17] VITALS: Ht 170.2 cm; Wt 127.6 kg
[2017-10-17] VITALS (9 sets, daily range): BP systolic 102–134; BP diastolic 57–91; PULSE 66–109; TEMP 36.8–37.1; O2SAT 97–100; Ht 170.2 cm; Wt 127.6 kg
--- NOTE | 2017-10-17 14:29 | EMERGENCY ROOM VISIT NOTE ---
History First contact with patient: 14:02 Chief Complaint: VAGINAL BLEEDING Stated Complaint: LOST BLOOD History of Present Illness The patient is a 42 year old female who presents to the Emergency Room with complaints of heavy vaginal bleeding that started yesterday. The patient is not due for her menses. She already had her period this month. She describes lower abdominal cramping. The patient also passed numerous clots the size of her hand. She is now feeling weak and lightheaded. The bleeding has subsided this morning. She also is complaining of shortness of breath with exertion. She denies any chest pain. The patient is . She called her family doctor who advised her to come here for evaluation. Review of Systems 10 system review performed and negative unless noted in HPI or below Past Medical/Surgical History Medical Problems: (1) Abdominal wall cellulitis (2) Cellulitis (3) Herpetic chayito (4) Herpetic chayito (5) History of blood clots (6) On home oxygen therapy (7) Pain in joint involving right ankle and foot Social History Smoking Status: Never Smoker Alcohol Use: occasionally Drug Use: none Marital Status: Housing Status: lives with family Occupation Status: employed Current/Historical Medications Scheduled Ferrous Sulfate (Kp Ferrous Sulfate), 1 TAB PO BID Ibuprofen (Advil), 600 MG PO DIRECTED Levofloxacin (Levaquin), 1 DOSE PO DAILY Lisinopril (Lisinopril), 20 MG PO DAILY Metformin Hcl Er (Glucophage Er), 1,000 MG PO DAILY Multiple Vitamin (Multi Vitamin), 1 TAB PO DAILY Norethindrone Acetate (Aygestin), 1 TAB PO UD Physical Exam Vital Signs Date Time Temp Pulse Resp B/P (MAP) Pulse Ox O2 Delivery O2 Flow Rate FiO2 10/17/17 23:31 94 18 116/58 99 Room Air 10/17/17 22:45 36.8 89 20 133/59 100 4.0 10/17/17 22:21 90 10/17/17 22:15 37.0 100 20 102/64 98 10/17/17 22:01 111/72 10/17/17 22:00 37.0 109 20 111/72 99 10/17/17 21:46 100 20 122/78 100 10/17/17 21:35 36.8 81 18 104/57 98 10/17/17 21:31 97 18 112/75 98 10/17/17 21:30 103 22 99 10/17/17 21:20 134/91 10/17/17 21:19 37.0 88 18 134/91 97 10/17/17 21:00 82 17 129/78 100 10/17/17 20:57 117/65 10/17/17 20:56 37.1 66 18 117/65 98 10/17/17 20:45 67 20 123/59 98 10/17/17 20:43 123/63 10/17/17 20:42 36.8 83 18 123/63 98 10/17/17 20:33 36.8 76 18 104/57 99 0.0 10/17/17 20:32 104/57 10/17/17 20:30 76 17 97 10/17/17 20:15 84 24 98 10/17/17 20:01 107/62 10/17/17 20:00 77 22 99 10/17/17 19:00 96 10/17/17 18:26 105/67 125/82 144/103 10/17/17 18:25 90 18 105/67 97 Room Air 10/17/17 17:23 99 18 119/67 100 Room Air 10/17/17 16:10 89 18 111/68 100 Room Air 10/17/17 14:23 114 10/17/17 14:11 124 20 142/67 100 Room Air 10/17/17 12:38 36.7 119 18 118/75 98 Room Air Physical Exam VITALS: Vitals are noted on the nurse's note and reviewed by myself. Vital signs stable. GENERAL: 42-year-old female, in no acute distress, nondiaphoretic, well- developed well-nourished. SKIN: The skin was without rashes, erythema, edema, or bruising. HEAD: Normocephalic atraumatic. NECK: Supple without nuchal rigidity. No JVD. HEART: Regular rate and rhythm without murmurs gallops or rubs. LUNGS: Clear to auscultation bilaterally without wheezes, rales or rhonchi. No accessory muscle use. ABDOMEN: Positive bowel sounds x 4.Soft, nontender, without organomegaly. No guarding or rebound tenderness. MUSCULOSKELETAL: Mild erythema noted to the ankles left greater than right. Nonpitting edema in the lower extremities bilaterally. No tenderness. ( Erythema is reportedly chronic) NEURO: Patient was alert and oriented to person place and time. Normal sensation to touch. No focal neurological deficits. Medical Decision & Procedures ER Provider Diagnostic Interpretation: CTA chest 1. No evidence for pulmonary embolus with limitations as described above. 2. Stable mildly enlarged left supraclavicular and left superior mediastinal lymph nodes. Electronically signed by: Stanford Acuña M.D. 10/17/2017 5:24 PM Dictated Date/Time: 10/17/2017 5:09 PM The status of this report is Signed. Draft = Not yet reviewed or approved by Radiologist. Signed = Reviewed and approved by Radiologist. pelvic IMPRESSION: 1. Thickened endometrium, which could be normal in the premenopausal setting. However, endometrial hyperplasia to be considered in this setting of elevated estrogen. Gynecologic consultation for consideration for endometrial biopsy if there is clinical concern. Follow-up in pelvic ultrasound 6-12 weeks could also be considered. 2. No evidence of ovarian torsion. Electronically signed by: Saud Tapia M.D. 10/17/2017 3:55 PM Dictated Date/Time: 10/17/2017 3:51 PM The status of this report is Signed. Draft = Not yet reviewed or approved by Radiologist. Signed = Reviewed and approved by Radiologist. <AttendingPhy></AttendingPhy> <FamilyPhy>Jakob Anguiano M.D.</FamilyPhy > <PrimaryPhy>Jakob Anguiano M.D.</PrimaryPhy> <UnitNumber>[id number]</ UnitNumber> <VisitNumber>[id number]</VisitNumber> <PatientName>NOHELIA CARRENO< /PatientName> <DateOfBirth>1975</DateOfBirth> <Location>[facility]</Location> < ServiceDate>10/17/17</ServiceDate> <MNE>ESINDI</MNE> <OrderingPhy>Kady Summers PA-C</OrderingPhy> <OrderingPhyMNE>f rep ord mne</OrderingPhyMNE> < DictatingPhyMNE>f rep dict mne</DictatingPhyMNE> <CCListMNE>f rep ct mne</ CCListMNE> <AdmittingPhyMNE>f pt admit dr francisco</AdmittingPhyMNE> <AttendingPhyMNE >f pt attend dr francisco</AttendingPhyMNE> <ConsultingPhyMNE>f pt consult dr francisco</ConsultingPhyMNE> <FamilyPhyMNE>f pt fam dr francisco</FamilyPhyMNE> <OtherPhyMNE>f pt other dr francisco</OtherPhyMNE> < PrimaryPhyMNE>f pt prim Laboratory Results 10/17/17 14:40 Red Blood Count 3.09, Mean Corpuscular Volume 88.0, Mean Corpuscular Hemoglobin 29.8, Mean Corpuscular Hemoglobin Concent 33.8, Mean Platelet Volume 10.8, Neutrophils (%) (Auto) 74.5, Lymphocytes (%) (Auto) 19.0, Monocytes (%) (Auto) 5.5, Eosinophils (%) (Auto) 0.5, Basophils (%) (Auto) 0.1, Neutrophils # (Auto) 12.32, Lymphocytes # (Auto) 3.15, Monocytes # (Auto) 0.91, Eosinophils # (Auto) 0.08, Basophils # (Auto) 0.02 10/17/17 14:40 Test 10/17/17 14:15 10/17/17 14:40 10/17/17 21:20 Urine Crystals CALCIUM OXALATE (NONE Urine Pathogenic Casts /lpf (0) Urine Test NEG (NEG) White Blood Count 16.54 K/uL (4.8-10.8) Red Blood Count 3.09 M/uL (4.2-5.4) Hemoglobin 9.2 g/dL (12.0-16.0) Hematocrit 27.2 % (37-47) Mean Corpuscular Volume 88.0 fL (80-100) Mean Corpuscular Hemoglobin 29.8 pg (25-34) Mean Corpuscular Hemoglobin Concent 33.8 g/dl (32-36) Platelet Count 340 K/uL (130-400) Mean Platelet Volume 10.8 fL (7.4-10.4) Neutrophils (%) (Auto) 74.5 % Lymphocytes (%) (Auto) 19.0 % Monocytes (%) (Auto) 5.5 % Eosinophils (%) (Auto) 0.5 % Basophils (%) (Auto) 0.1 % Neutrophils # (Auto) 12.32 K/uL (1.4-6.5) Lymphocytes # (Auto) 3.15 K/uL (1.2-3.4) Monocytes # (Auto) 0.91 K/uL (0.11-0.59) Eosinophils # (Auto) 0.08 K/uL (0-0.5) Basophils # (Auto) 0.02 K/uL (0-0.2) RDW Standard Deviation 44.5 fL (36.4-46.3) RDW Coefficient of Variation 13.9 % (11.5-14.5) Immature Granulocyte % (Auto) 0.4 % Immature Granulocyte # (Auto) 0.06 K/uL (0.00-0.02) Prothrombin Time 10.6 SECONDS (9.0-12.0) Prothromb Time International Ratio 1.0 (0.9-1.1) Activated Partial Thromboplast Time 18.6 SECONDS (21.0-31.0) Partial Thromboplastin Ratio 0.7 D-Dimer 960 ug/L FEU (0-500) Anion Gap 9.0 mmol/L (3-11) Est Creatinine Clear Calc Drug Dose 73.8 ml/min Estimated GFR () 54.5 Estimated GFR (Non- 47.0 BUN/Creatinine Ratio 17.5 (10-20) Calcium Level 8.7 mg/dl (8.5-10.1) Urine Color YELLOW Urine Appearance CLEAR (CLEAR) Urine pH 5.5 (4.5-7.5) Urine Specific Thompson > 1.045 (1.000-1.030) Urine Protein NEG (NEG) Urine Glucose (UA) NEG (NEG) Urine Ketones NEG (NEG) Urine Occult Blood 3+ (NEG) Urine Nitrite NEG (NEG) Urine Bilirubin NEG (NEG) Urine Urobilinogen NEG (NEG) Urine Leukocyte Esterase NEG (NEG) Urine WBC (Auto) 1-5 /hpf (0-5) Urine RBC (Auto) 10-30 /hpf (0-4) Urine Hyaline Casts (Auto) 1-5 /lpf (0-5) Urine Epithelial Cells (Auto) >30 /lpf (0-5) Urine Bacteria (Auto) NEG (NEG) Date/Time Source Procedure Growth Status 2/16/18 21:20 Urine , Clean Catch Urine Culture - Final THREE TYPES OF ORGANISMS PRESENT, ALL... Complete Medications Administered Medications (Trade) Dose Ordered Sig/[place] Route Start Time Stop Time Status Last Admin Dose Admin Sodium Chloride 1,000 ml @ 999 mls/hr Q1H1M ONCE IV 10/17/17 14:30 10/17/17 15:30 DC 10/17/17 14:48 999 MLS/HR Sodium Chloride 1,000 ml @ 999 mls/hr Q1H1M ONCE IV 10/17/17 16:00 10/17/17 17:00 DC 10/17/17 16:32 999 MLS/HR Ceftriaxone Sodium (Rocephin Inj) 1 gm NOW STAT IV 10/17/17 16:03 10/17/17 16:05 DC 10/17/17 16:35 1 GM Norethindrone Acetate (Aygestin Tab) 5 mg ONE STAT PO 10/17/17 20:10 10/17/17 20:11 DC 10/17/17 21:10 5 MG Norethindrone Acetate (Aygestin Tab) 5 mg ONE STAT PO 10/17/17 21:55 10/17/17 21:56 DC 10/17/17 21:55 5 MG ED Course Patient was seen and examined Vital signs including blood pressure were reviewed medications list was verified with patient Labs were obtained, and a saline lock was established The patient was hydrated with 1 L of normal saline. Upon reevaluation, the patient was still feeling weak. She had difficulty ambulating to the restroom. She felt lightheaded. She was hydrated with an additional liter of normal saline. I discussed the findings with case management, the hospitalist group in addition to CERTIFIED PEER SPECIALIST. The patient was ordered 1 unit of packed RBCs The case was again discussed with CERTIFIED PEER SPECIALIST. The patient was reassessed. She was feeling better. She was last weak. We discussed the results of her workup. She was understanding, was comfortable being discharged home. The patient was given another dose of Aygestin 5 mg I reviewed discharge instructions the patient. They voiced understanding and had no further questions. Medical Decision Differential diagnosis: Uterine fibroids, ectopic , spontaneous , acute blood loss anemia, uterine mass, uterine rupture This patient is a 42-year-old female that presents to the emergency department with heavy vaginal bleeding. On exam, she was tachycardic. Her abdomen was benign. The patient's hemoglobin was 9.2. When compared to her previous, this was a fairly significant drop. The patient's creatinine is also slightly abnormal. The case was discussed at length with CERTIFIED PEER SPECIALIST and the hospitalist service. It was felt that after her transfusion, she was stable to be discharged home. This was discussed at length with the patient. She was transfused 1 unit of packed RBCs in the emergency department. She was also given 2 doses of Aygestin per recommendations of CERTIFIED PEER SPECIALIST. She was feeling much better. The patient was not orthostatic. She will be discharged home with very close follow-up. She was advised to return immediately to the emergency department with any further bleeding, lightheadedness, weakness, difficulty breathing or chest pain. She was started on Aygestin for the bleeding. She will follow-up with CERTIFIED PEER SPECIALIST on Friday. She was also given a prescription for repeat blood work Of note, the patient was given 1 dose of ceftriaxone based on her first urinalysis. A repeat urinalysis was performed. The initial urinalysis was likely contaminant. A culture will be sent. Because of her dyspnea on exertion, I ordered a d-dimer. This was elevated. The patient does have a remote history of DVT. A CT of the chest was performed. No PE was noted. Her dyspnea is likely secondary to anemia. She was not hypoxic This chart was completed in part utilizing [employer] Speech Voice Recognition software. Attempts were made to minimize the grammatical errors, random word insertions, pronoun errors and incomplete sentences. Any formal questions or concerns about the content, text or information contained within the body of this dictation should be directly addressed to the provider for clarification. Medication Reconcilliation Current Medication List: was personally reviewed by [place] Blood Pressure Screening Patient's blood pressure: Normal blood pressure Consults Consulting Physician: Dr Berger Impression Primary Impression: Vaginal bleeding Additional Impression: Anemia Departure Information Dispostion Home / Self-Care Condition FAIR Prescriptions Ferrous Sulfate (KP FERROUS SULFATE) 325 Mg Tab 1 TAB PO BID for 30 Days, #60 TAB 3 Refills Prov: Kady Summers PA-C 10/17/17 Norethindrone Acetate (AYGESTIN) 5 Mg Tab 1 TAB PO UD, #39 TAB Take 1 pill 3 times daily x 4 days Then, Take 1 pill twice daily for 10 days then, take 1 pill daily for 7 days Prov: Kady Summers PA-C 10/17/17 Referrals Jakob Anguiano M.D. (PCP) Alysa Walsh M.D. Patient Instructions My [facility] Additional Instructions You were evaluated in the emergency department for vaginal bleeding. You were transfused 1 unit of blood in the emergency department. Please take Aygestin as prescribed. Please also take iron supplements as prescribed. It is very important for you to have follow up as soon as possible with the OB/ QUALITY SYSTEMS TECHNICIAN doctor. Please call Friday morning for a follow-up appointment. Please also have repeat blood work (CBC and PRP) in 48 hours Please not hesitate to return immediately to the emergency department for any new, worsening or concerning symptoms; especially, increased bleeding, lightheadedness, weakness, difficulty breathing, pain in your chest or severe abdominal pain. Work Instructions Return To Work: 2 days Problem Qualifiers
[2017-10-17] MEDS ORDERED: SODIUM CHLORIDE 0.9% 1000ML 1,000 ML IV ONE ×2 (14:30→16:00)
[2017-10-17 14:55] LABS: BASO % 0.1 %; BASO ABS # 0.02 K/uL (0-0.2); EOS % 0.5 %; EOS ABS # 0.08 K/uL (0-0.5); HEMATOCRIT 27.2 % (37-47); HEMOGLOBIN 9.2 g/dL (12.0-16.0); IG# 0.06 K/uL (0.00-0.02); LYMPH ABS # 3.15 K/uL (1.2-3.4); MEAN CORPUSCULAR HEMOGLOBIN 29.8 pg (25-34); MEAN CORPUSCULAR HGB CONC 33.8 g/dl (32-36); MEAN PLATELET VOLUME 10.8 fL (7.4-10.4); MONO % 5.5 %; MONO ABS # 0.91 K/uL (0.11-0.59); NEUT % 74.5 %; NEUT ABS # 12.32 K/uL (1.4-6.5); PLATELET COUNT 340 K/uL (130-400); RED CELL DISTRIBUTION WIDTH CV 13.9 % (11.5-14.5); RED CELL DISTRIBUTION WIDTH SD 44.5 fL (36.4-46.3); WHITE BLOOD COUNT 16.54 K/uL (4.8-10.8)
[2017-10-17] MEDS ORDERED: LEVO-17 PO (15:10)
[2017-10-17] MEDS ORDERED: LSN20 PO (15:10)
[2017-10-17] MEDS ORDERED: METF500T5 PO (15:10)
[2017-10-17] MEDS ORDERED: MULT-1027 PO (15:10)
[2017-10-17 15:13] LABS: CALCIUM 8.7 mg/dl (8.5-10.1); CREATININE 1.38 mg/dl (0.60-1.20); POTASSIUM 3.6 mmol/L (3.5-5.1)
[2017-10-17 15:38] LABS: PTT PATIENT 18.6 SECONDS (21.0-31.0)
--- NOTE | 2017-10-17 15:56 | DIAGNOSTIC IMAGING REPORT ---
TRANSVAG-FEMALE PELVIS CLINICAL HISTORY: 42 years-old Female presenting with heavy bleeding abd cramping, history of tubal ligation, last menstrual period 10/02/2017. TECHNIQUE: Real-time grayscale and color and spectral Doppler ultrasound imaging of the pelvis was performed first using a transabdominal probe and subsequently transvaginal for better characterization. COMPARISON: 08/13/2017. FINDINGS: Uterus: Normal. Anteverted. The uterus measures 8.9 x 4.8 x 5.0 cm. Endometrial stripe measures 14 mm in thickness. Endometrium heterogeneously hypoechoic. Cervix contains nabothian cyst. Right adnexa: Right ovary normal. Right ovary measures 3.1 x 1.5 x 2.3 cm. Normal color Doppler flow and arterial and venous waveforms within the ovarian parenchyma. Left adnexa: Left ovary contains a dominant follicle/corpus luteum. Left ovary measures 2.9 x 1.7 x 2.0 cm. Normal color Doppler flow and arterial and venous waveforms within the ovarian parenchyma. Other: No free fluid. IMPRESSION: 1. Thickened endometrium, which could be normal in the premenopausal setting. However, endometrial hyperplasia to be considered in this setting of elevated estrogen. Gynecologic consultation for consideration for endometrial biopsy if there is clinical concern. Follow-up in pelvic ultrasound 6-12 weeks could also be considered. 2. No evidence of ovarian torsion. Electronically signed by: Saud Tapia M.D. 10/17/2017 3:55 PM Dictated Date/Time: 10/17/2017 3:51 PM
[2017-10-17] MEDS ORDERED: OPTIRAY 320 IV PRN (16:00)
[2017-10-17] MEDS ORDERED: CEFTRIAXONE SOD INJ 1 GM ADDVIAL IV STA (16:03)
--- NOTE | 2017-10-17 17:25 | DIAGNOSTIC IMAGING REPORT ---
CHEST CTA for PULMONARY ARTERIES CT DOSE: 700.60 mGy.cm HISTORY: History of DVT. Short of breath. TECHNIQUE: Multiaxial CT images of the chest were performed following the intravenous administration of contrast to evaluate the pulmonary arteries. Maximal intensity projection images were also obtained. A dose lowering technique was utilized adhering to the principles of ALARA. COMPARISON STUDY: Chest CTA 03/27/2017. FINDINGS: Near nondiagnostic evaluation of the majority of the segmental and subsegmental pulmonary arteries due to the respiratory motion artifact. However, there are no definite filling defects identified within the pulmonary arteries to suggest pulmonary embolus. The heart remains mildly enlarged. Normal caliber thoracic aorta with no evidence for dissection. No pleural or pericardial effusions. Stable mildly enlarged left supraclavicular and left superior mediastinal lymph nodes. Dominant left supraclavicular lymph node measures 2.3 x 1.4 cm. The visualized liver, spleen, adrenal glands are unremarkable. No fractures within the visualized osseous structures. The central airways are patent. No pneumothorax. Groundglass densities at the lung bases favor mild dependent change. No focal lung consolidations to suggest pneumonia. IMPRESSION: 1. No evidence for pulmonary embolus with limitations as described above. 2. Stable mildly enlarged left supraclavicular and left superior mediastinal lymph nodes. Electronically signed by: Stanford Acuña M.D. 10/17/2017 5:24 PM Dictated Date/Time: 10/17/2017 5:09 PM
[2017-10-17] MEDS ORDERED: NORETHINDRONE ACETATE 5 MG TAB PO STA ×2 (20:10→21:55)
[2017-10-17] MEDS ORDERED: AYG/5 PO (23:39)
[2017-10-17] MEDS ORDERED: FERR1TAB13 PO (23:39)
== END 2017-10-18 00:06 | disposition home or self-care (01) ==
LOC: C.EDB 12:30
DX: N93.9 Abnormal uterine and vaginal bleeding, unspecified (principal); D64.9 Anemia, unspecified; R42 Dizziness and giddiness; R06.02 Shortness of breath

== ENCOUNTER → 2017-11-11 | Outpatient (CLI) | payer OTHER ==
[~2017-11-11] MED LIST changes: -ACET-1256 PO; +AYG/5 PO; +ENOX120I SQ; +FERR1TAB13 PO; +LEVO-17 PO; +LSN20 PO; -LVQ500 PO; +MULT-1027 PO; +WARF5TAB90 PO
== END | disposition home or self-care (01) ==
LOC: C.PAPS 14:38
PROVIDERS: ATTEND Obstetrics & Gynecology
DX: N92.0 Excessive and frequent menstruation with regular cycle (principal); R87.610 Atypical squamous cells of undetermined significance on cytologic smear of cervix (ASC-US)

== ENCOUNTER → 2017-11-11 | Outpatient (CLI) | payer OTHER | END | disposition home or self-care (01) | LOC: C.PATHSPEC 18:00 | PROVIDERS: ATTEND Obstetrics & Gynecology | DX: N92.0 Excessive and frequent menstruation with regular cycle (principal) ==

== ENCOUNTER 2017-11-12 11:52 | Emergency (ER) | payer OTHER ==
[~2017-11-12] VITALS: Ht 167.6 cm; Wt 125.0 kg
[~2017-11-12 11:52] MED LIST changes: -ENOX120I SQ; -WARF5TAB90 PO
[2017-11-12 12:01] VITALS: TEMP 36.6; Ht 167.6 cm; Wt 125.0 kg
[2017-11-12] MEDS ORDERED: FERR1TAB13 PO (12:28)
--- NOTE | 2017-11-12 12:32 | EMERGENCY ROOM VISIT NOTE ---
History Report prepared by Randy: Alessandro Conrad Under the Supervision of: Dr. Tho Kimbrough M.D. First contact with patient: 12:09 Chief Complaint: LEG PAIN,LEG INJURY Stated Complaint: LEG PAIN History of Present Illness The patient is a 42 year old white female with a history of Abdominal wall cellulitis, Cellulitis, Diabetes Mellitus, Herpetic chayito, History of blood clots, and home oxygen therapy, who presents to the Emergency Room with complaints of constant pain in the left lower extremity that began two days ago. The patient states that the left leg is more swollen and warm than usual. The swelling and warmth has actually improved since the symptoms began two days ago. Yesterday there was a period of time when the left lower extremity and foot were numb. She has a history of superficial in the left lower extremity. This episode occurred in 2003, over 14 years ago. The patient did have a recent blood transfusion secondary to a large lose of blood on her menstrual cycle. She was told that she needed to have a hysterectomy following the transfusion. The patient does have Type II Diabetes. There has not been any chest pain or shortness of breath. 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 A total of ten systems were reviewed and were otherwise negative. Past Medical & Surgical Medical Problems: (1) Abdominal wall cellulitis (2) Cellulitis (3) Herpetic chayito (4) Herpetic chayito (5) History of blood clots (6) On home oxygen therapy (7) Pain in joint involving right ankle and foot Family History Diabetes mellitus Social History Smoking Status: Never Smoker Alcohol Use: occasionally Drug Use: none Marital Status: Housing Status: lives with family Occupation Status: employed Current/Historical Medications Scheduled Enoxaparin (Lovenox), 120 MG SQ Q12H Ferrous Sulfate (Kp Ferrous Sulfate), 325 MG PO BID Ibuprofen (Advil), 600 MG PO DIRECTED Levofloxacin (Levaquin), 1 DOSE PO DAILY Lisinopril (Lisinopril), 20 MG PO DAILY Metformin Hcl Er (Glucophage Er), 1,000 MG PO DAILY Multiple Vitamin (Multi Vitamin), 1 TAB PO DAILY Norethindrone Acetate (Aygestin), 1 TAB PO UD Warfarin Sodium (Coumadin), 0 PO DAILY Allergies Coded Allergies: Vancomycin (Unverified Allergy, Mild, HIVES, 11/12/17) Physical Exam Vital Signs Date Time Temp Pulse Resp B/P (MAP) Pulse Ox O2 Delivery O2 Flow Rate FiO2 11/12/17 14:46 89 20 142/88 95 Room Air 11/12/17 12:01 36.6 84 18 171/84 98 Room Air Physical Exam GENERAL: Obese, Awake, alert, well-appearing, NAD HENT: Normocephalic, atraumatic. EYES: Normal conjunctiva. Sclera non-icteric. NECK: Supple. No nuchal rigidity. FROM. RESPIRATORY: CTAB, no rhonchi, wheezing, crackles CARDIAC: RRR, no MRG ABDOMEN: Soft, NTND, BS+ MSK: No chest wall TTP, There is redness and calf pain/swelling to the LLE. There edema is non-pitting. the LLE is greater than the RLE. Becky's sign positive. NVI distally to SP, DP, and Tibialis nerves. NEURO: GCS 15, CN 2-12 intact, moves all 4s on command SKIN: No rash or jaundice noted. Medical Decision & Procedures ER Provider Diagnostic Interpretation: Radiology results as stated below per my review and radiologist interpretation: LEFT LOWER EXTREMITY VENOUS DOPPLER CLINICAL HISTORY: LLE non pitting, prior superficial VT COMPARISON STUDY: Left lower extremity venous Doppler March 22, 2017. TECHNIQUE: Sonography of the deep venous system of the left lower extremity was performed. Compression and augmentation were evaluated. FINDINGS: Deep venous thrombus is noted within the left posterior tibial vein. Otherwise, no deep venous thrombus is identified within the left lower extremity. IMPRESSION: Deep venous thrombus within the left posterior tibial vein. Electronically signed by: Boston Mckeon M.D. 11/12/2017 1:21 PM Dictated Date/Time: 11/12/2017 1:20 PM Laboratory Results Test 11/12/17 13:58 Bedside Hemoglobin 11.6 g/dl (12.0-16.0) Bedside Hematocrit 34 % (37-47) Bedside Sodium 143 mEq/L (135-144) Bedside Potassium 4.2 mEq/L (3.3-5.0) Bedside Chloride 107 mEq/L (101-112) Bedside Total CO2 25 mEq/l (24-31) Anion Gap 17.0 mmol/L (16-25) Bedside Blood Urea Nitrogen 12 mg/dl (7-18) Bedside Creatinine 0.8 mg/dl (0.6-1.3) Bedside Glucose (other) 87 mg/dl (70-99) Bedside Ionized Calcium (Lev) 1.19 mmol/l (1.12-1.32) Laboratory results reviewed by me Medications Administered Medications (Trade) Dose Ordered Sig/Everett Route Start Time Stop Time Status Last Admin Dose Admin Warfarin Sodium (Coumadin Tab) 10 mg NOW ONCE PO 11/12/17 14:15 11/12/17 14:19 DC 11/12/17 14:45 10 MG ED Course 1220: The patient was evaluated in room C11B. A complete history and physical exam was performed. 1415: Ordered Coumadin 10 mg PO. 1417: I reevaluated the patient. Discussed results and discharge instructions: she verbalized understanding and agreement. The patient is ready for discharge. Medical Decision The patient is a 42 year old white female with a history of Abdominal wall cellulitis, Cellulitis, Herpetic chayito, History of blood clots, and home oxygen therapy, who presents to the Emergency Room with complaints of constant pain in the left lower extremity that began two days ago. Differential diagnosis: Etiologies such as DVT, musculoskeletal, infection, joint effusion, trauma, lymphedema, idiopathic, CHF, as well as others were entertained. Prior records were reviewed. Patient did require recent transfusion and was placed on Aygestin to help with some vaginal bleeding. Patient was seen and evaluated the bedside. Patient had been seen at a physical therapist office and they were concerned about her left lower extremity. Patient has noted some mild calf pain as well as some redness and swelling over the last 2 days. Her pain is improved. Patient denies any chest pains or shortness of breath. Patient denies any recent procedures. Patient does state that she did have a superficial vein thrombosis in her left lower extremity and was not placed on any blood thinning medications. Patient did have ultrasound of the left lower extremity. I do not believe that it is cellulitic and is related to the swelling and stretching of the skin. The patient has no calor of the area. Patient's ultrasound did show a DVT. I did check her kidney function. Patient had normal kidney function. Given that she has had some recent vaginal bleeding I thought it was important to make sure that she could be reversed. I did discuss with the pharmacist. Patient was willing to self administer the Lovenox. Patient was given first dose of Coumadin. Patient was told to follow-up with other primary care with the Coumadin clinic. This was facilitated by case management. Patient was suitable with the plan of care and also suitable with outpatient follow-up and treatment at this time. Patient was also told to call their ACCOUNT DEVELOPMENT EXECUTIVE in order to discuss the recent blood thinning medications given her pending hysterectomy in November. Patient was given strict follow-up, discharge, and return precautions. All questions were answered. Patient was deemed suitable for outpatient follow- up at this time. Patient agreed with the plan of care and was safely discharged home. Medication Reconcilliation Current Medication List: was personally reviewed by me Blood Pressure Screening Patient's blood pressure: Elevated blood pressure Blood pressure disposition: Referred to PCP Impression Primary Impression: Deep vein thrombosis Additional Impression: Leg pain, left Scribe Attestation The scribe's documentation has been prepared under my direction and personally reviewed by me in its entirety. I confirm that the note above accurately reflects all work, treatment, procedures, and medical decision making performed by me. Departure Information Dispostion Home / Self-Care Prescriptions Enoxaparin (Lovenox) 120 Mg/0.8 Ml Inj 120 MG SQ Q12H for 5 Days, #10 SYR Prov: Tho Kimbrough M.D. 11/12/17 Warfarin Sodium (COUMADIN) 5 Mg Tab 0 PO DAILY for 30 Days, #31 TAB 1 Refill please take two tabs x 1 day, then 1 tab thereafter Prov: Tho Kimbrough M.D. 11/12/17 Patient Instructions Coumadin, DVT, DVT Dc, My [facility] Additional Instructions Please return to the emergency department if you have worsening or recurrent symptoms not amenable to at-home treatment. Please call for a follow-up appointment with her primary care physician. Please take your medications as prescribed. If you have other concerns and/or complaints please feel free to also call your primary care physician's office or return the ED for further evaluation, management, and treatment. You were found to have an elevated blood pressure today (>120 sytolic or >90 diastolic). Per medicare guidelines, you need to follow up with this blood pressure screening with your Primary Care Physician (PCP). For a new PCP call [phone]. Consider wearing a compression stockings or a an Ernst wrap to the left lower extremity. This may help swelling. These make sure you follow-up with a primary care physician and/or Coumadin clinic to have your INR checked. Take your medications as prescribed. You have been examined and treated today on an emergency basis only. This is not a substitute for, or an effort to provide, complete comprehensive medical care. It is impossible to recognize and treat all injuries or illnesses in a single emergency department visit. It is therefore important that you follow up closely with [facility], your PCP, and/or your specialist(s). Call as soon as possible for an appointment. Thank you for your time and consideration. I look forward to speaking with you again soon. Please don't hesitate to call us if you have any questions. Problem Qualifiers Primary Impression: Deep vein thrombosis DVT location: lower extremity Affected thrombotic vein of extremity: tibial Chronicity: acute Laterality: left Qualified Codes: I82.442 - Acute embolism and thrombosis of left tibial vein
--- NOTE | 2017-11-12 13:23 | DIAGNOSTIC IMAGING REPORT ---
LEFT LOWER EXTREMITY VENOUS DOPPLER CLINICAL HISTORY: LLE non pitting, prior superficial VT COMPARISON STUDY: Left lower extremity venous Doppler March 22, 2017. TECHNIQUE: Sonography of the deep venous system of the left lower extremity was performed. Compression and augmentation were evaluated. FINDINGS: Deep venous thrombus is noted within the left posterior tibial vein. Otherwise, no deep venous thrombus is identified within the left lower extremity. IMPRESSION: Deep venous thrombus within the left posterior tibial vein. Electronically signed by: Boston Mckeon M.D. 11/12/2017 1:21 PM Dictated Date/Time: 11/12/2017 1:20 PM
[2017-11-12 14:09] LABS: ISTAT CREATININE 0.8 mg/dl (0.6-1.3); ISTAT IONIZED CALCIUM 1.19 mmol/l (1.12-1.32); ISTAT POTASSIUM 4.2 mEq/L (3.3-5.0)
[2017-11-12] MEDS ORDERED: WARFARIN SOD 10 MG TAB PO ONE (14:15)
[2017-11-12 14:46] VITALS: BP 142/88; PULSE 89; O2SAT 95
[2017-11-12] MEDS ORDERED: WARF5TAB90 PO (14:46)
[2017-11-12] MEDS ORDERED: ENOX120I SQ (14:46)
--- NOTE | 2017-11-12 14:50 | Pharmacy Progress Note ---
ED Pharmacist Progress Note Date of Service: Nov 12, 2017. I spent 15 minutes with the patient explaining Lovenox and Warfarin therapy. Adverse effects, drug interactions, dietary restrictions, injection technique, and other pertinent drug information were reviewed with the patient. Lovenox teaching kit and Coumadin booklet given. All of the patient's questions and concerns were address.
== END 2017-11-12 13:10 | disposition home or self-care (01) ==
LOC: C.EDB 11:54 → C.EDC 13:10
DX: I82.442 Acute embolism and thrombosis of left tibial vein (principal); E11.9 Type 2 diabetes mellitus without complications; Z86.718 Personal history of other venous thrombosis and embolism; Z98.890 Other specified postprocedural states; Z83.3 Family history of diabetes mellitus; Z79.84 Long term (current) use of oral hypoglycemic drugs

== ENCOUNTER → 2017-11-19 | Outpatient (CLI) | payer OTHER ==
[~2017-11-19] MED LIST changes: +WARF5TAB90 PO
[2017-11-19 17:53] LABS: INR 1.1 (0.9-1.1)
== END | disposition home or self-care (01) ==
LOC: C.LAB 16:05
PROVIDERS: ATTEND Hospitalist
DX: I82.402 Acute embolism and thrombosis of unspecified deep veins of left lower extremity (principal)

== ENCOUNTER → 2018-04-03 | Outpatient (CLI) | payer OTHER ==
[~2018-04-03] MED LIST changes: -AYG/5 PO; -LEVO-17 PO; +LISI-726 PO; -LSN20 PO; +SERT100T PO
== END | disposition home or self-care (01) ==
LOC: C.PATHSPEC 11:32
PROVIDERS: ATTEND Obstetrics & Gynecology
DX: R87.613 High grade squamous intraepithelial lesion on cytologic smear of cervix (HGSIL) (principal); R87.612 Low grade squamous intraepithelial lesion on cytologic smear of cervix (LGSIL)